=== PATIENT | male | born 1965 | race Caucasian/White ===

== ENCOUNTER 2019-04-07 19:20 | Inpatient (IN) ==
[2019-04-07] MEDS ORDERED: 0.9 % Sodium Chloride 1,000 ML IVC ONE ×2 (20:35→22:56)
[2019-04-07] MEDS ORDERED: Thiamine (B-1) 100 MG TABLET PO STA (20:35)
--- NOTE | 2019-04-07 20:37 | Emergency Department Note ---
Disposition Clinical Impression: Hypokalemia, Weakness, Tremor, Alcohol abuse, Frequent falls Alcohol withdrawal Qualifiers: Complication of substance-induced condition: with unspecified complication Qualified Code(s): F10.239 - Alcohol dependence with withdrawal, unspecified Disposition: Admitted As Inpatient Condition: Fair Time of Disposition: 23:12 General Adult HPI - General Chief complaint: ED Seizure Stated complaint: possible seziure, confusion Time Seen by Provider: 04/07/19 20:19 Source: patient, EMS Mode of arrival: EMS Limitations: no limitations Nursing Notes Reviewed: Yes Vital Signs Reviewed: Yes - History of Present Illness HPI Narrative: 53-year-old male with no known past medical history the takes no daily medications that reports multiple falls over the last couple of days. Patient states he is worried he does not know why he is falling. Patient reports daily use of alcohol 2-3 alcoholic beverages every evening with his last consumption last night. Patient has visible tremors on examination. Patient appears to have suffered multiple scrapes, abrasions, bruises. Patient has some dried blood on his left hand, and appears disheveled. Patient was initially reticent to eating evaluated because he had called someone to come and pick him up. However after I explained my concerns to the patient he was amenable to further evaluation and then later admission. Patient states he does not know how he got to the hospital and initially thought that it was Sunday. According to EMS, patient had fallen on the floor and someone who was in his house called the squad. Pain Scale: 0 - Related Data Allergies Allergy/AdvReac Type Severity Reaction Status Date / Time No Known Allergies Allergy Verified 04/07/19 19:35 Review of Systems: In addition to that documented in the HPI above, the additional ROS was obtained: Constitutional: Denies fevers or chills Eyes: Denies vision changes ENMT: Denies sore throat CV: Denies chest pain Resp: Denies SOB GI: Denies vomiting or diarrhea : Denies painful urination MSK: Denies recent trauma Skin: Denies new rashes Neuro: Reports recent gait instability, frequent falls. Endocrine: Denies unexpected weight loss Heme: Denies bleeding disorders Past Medical History - Past Medical History Attestation: Yes The following information was validated with the patient. Medical history: Reports: other Psychiatric history: Reports: no psych history - Social History Smoking Status: Current every day smoker Smokeless Tobacco Status: No Alcohol use: Reports: heavy Drug use: Reports: none Physical Exam General: A&O x 1 - person, not to time or place, thought he was in [place]. Appears disheveled, mild tremor noted at rest. Head: No hematomas, lacerations, or abrasions. ENT: No conjunctival injection, mild scleral icterus. PERRLA. EOMI. Horizontal nystagmus at lateral deviations. Oropharynx non- erythematous. mucous membranes dry. Neuro: Romi UE/LE sensation intact. CN II-XII intact. Romi UE/LE str 5/5. Ataxia in finger to nose with cerebellar testing. Pulm: Lungs CTAB A/P. No wheezes, rales, ronchi. Cardio: Tachycardic. Chest not tender to palpation. Abd: Soft, non-distended. Normoactive bowel sounds. Non-tender to palpation. No guarding. Non rigid. Extremities: Radial pulses 2+ romi Skin: warm, dry, intact. Multiple abrasions present. Dried blood present on left hand. Psych: Flat affect. Conversational. Not combative. - General General appearance: alert Course Vital Signs Temperature 98.1 F 04/07/19 19:25 Pulse Rate 111 04/07/19 19:25 Respiratory Rate 18 04/07/19 19:25 Blood Pressure 152/105 04/07/19 19:25 O2 Sat by Pulse Oximetry 96 04/07/19 19:25 Temperature 98.2 F 04/10/19 15:00 Pulse Rate 115 04/10/19 15:00 Respiratory Rate 18 04/10/19 15:00 Blood Pressure 101/71 04/10/19 15:00 O2 Sat by Pulse Oximetry 96 04/10/19 07:30 Oxygen Delivery Oxygen Delivery Room Air Medical Decision Making - [facility] Narrative Medical decision making narrative: Patient's head CT was negative for acute intracranial abnormality and the remainder of his imaging did not reveal any acute fractures or other abnormalities. However patient did have signs that he was in alcohol withdrawal given that his alcohol level was undetectable and his reported daily use. CIWA scoring revealed a score of 14 so patient was placed on Ativan prophylaxis. After administration of Ativan patient's heart rate normalized below 100. Patient was found to be hypokalemic at 2.3, so he was given 75 mEq by mouth potassium as well as ordered 40 mEq IV and 2 g of IV magnesium. Additionally herberth foreman was ordered fluid bolus as he appeared to be dry. Patient was admitted to the hospitalist Dr. Maguire who agreed to accept the patient to her service. Patient was given an opportunity to ask questions at bedside and all of their concerns were addressed. Patient verbalized understanding and agreement with plan of care. Pt remained stable while in the department. - Medical Records Medical records reviewed: Yes I reviewed the patient's medical records. - Lab Data Lab results reviewed: Yes I reviewed the patient's lab results. Result diagrams: 04/08/19 01:41 04/10/19 01:18 Lab Results 04/07/19 04/07/19 04/07/19 Range/Units 21:34 21:34 21:34 WBC 7.2 (4.3-11.1) K/mcL RBC 3.91 L (4.19-5.50) M/mcL Hgb 13.3 (12.9-16.9) g/dL Hct 37.2 L (37.5-50.1) % MCV 95.1 (83.0-100.0) fL MCH 34.0 H (28.0-33.3) pg MCHC 35.8 H (31.6-35.5) g/dL RDW 13.9 (11.5-14.5) % Plt Count 101 L (140-400) K/mcL MPV 10.4 (9.4-12.4) fL Immature Gran % 0.6 (0-4) % Seg Neutrophils % 77.4 % Lymphocytes % 9.6 % Monocytes % 12.1 % Eosinophils % 0.0 % Basophils % 0.3 % Neutrophils # 5.6 (1.6-8.9) K/mcL Lymphocytes # 0.7 (0.6-4.6) K/mcL Monocytes # 0.9 (0.0-1.3) K/mcL Eosinophils # 0.0 (0.0-0.6) K/mcL Basophils # 0.0 (0.0-0.2) K/mcL PT 12.5 H (9.4-12.1) Seconds INR 1.1 Sodium 134 L (136-145) mEq/L Potassium 2.3 L* (3.5-5.1) mEq/L Chloride 90 L (98-107) mEq/L Carbon Dioxide 29 (23-29) mEq/L BUN 7 (6-20) mg/dL Creatinine 0.66 L (0.70-1.30) mg/dL Est GFR ( Amer) > 60 (> 60) Est GFR (Non-Af Amer) > 60 (> 60) BUN/Creatinine Ratio 11 (6-26) Glucose 130 H (70-105) mg/dL Calculated Osmolality 278 L (280-300) Calcium 9.1 (8.6-10.3) mg/dL Magnesium 0.7 L (1.6-2.6) mg/dL Total Bilirubin 3.5 H (0.3-1.0) mg/dL Direct Bilirubin 1.0 H (0.0-0.2) mg/dL Indirect Bilirubin 2.5 H (0.0-1.2) mg/dL AST 56 H (13-39) Units/L ALT 25 (7-52) Units/L Alkaline Phosphatase 90 (34-104) Units/L Ammonia (16-53) mcmol/L Serum Total Protein 7.5 (6.4-8.9) g/dL Albumin 4.3 (3.5-5.7) g/dL Globulin 3.2 (2.4-3.5) g/dL Albumin/Globulin Ratio 1.3 (1.1-2.2) TSH 1.721 (0.340-5.600) mcIU/mL Ethyl Alcohol < 10 (Less than 10) mg/dL Hepatitis A IgM Ab (Nonreactive) Hep Bs Antigen (Nonreactive) Hep B Core IgM Ab (Nonreactive) Hepatitis C Ab Screen (Nonreactive) 04/07/19 04/07/19 Range/Units 21:34 21:34 WBC (4.3-11.1) K/mcL RBC (4.19-5.50) M/mcL Hgb (12.9-16.9) g/dL Hct (37.5-50.1) % MCV (83.0-100.0) fL MCH (28.0-33.3) pg MCHC (31.6-35.5) g/dL RDW (11.5-14.5) % Plt Count (140-400) K/mcL MPV (9.4-12.4) fL Immature Gran % (0-4) % Seg Neutrophils % % Lymphocytes % % Monocytes % % Eosinophils % % Basophils % % Neutrophils # (1.6-8.9) K/mcL Lymphocytes # (0.6-4.6) K/mcL Monocytes # (0.0-1.3) K/mcL Eosinophils # (0.0-0.6) K/mcL Basophils # (0.0-0.2) K/mcL PT (9.4-12.1) Seconds INR Sodium (136-145) mEq/L Potassium (3.5-5.1) mEq/L Chloride (98-107) mEq/L Carbon Dioxide (23-29) mEq/L BUN (6-20) mg/dL Creatinine (0.70-1.30) mg/dL Est GFR ( Amer) (> 60) Est GFR (Non-Af Amer) (> 60) BUN/Creatinine Ratio (6-26) Glucose (70-105) mg/dL Calculated Osmolality (280-300) Calcium (8.6-10.3) mg/dL Magnesium (1.6-2.6) mg/dL Total Bilirubin (0.3-1.0) mg/dL Direct Bilirubin (0.0-0.2) mg/dL Indirect Bilirubin (0.0-1.2) mg/dL AST (13-39) Units/L ALT (7-52) Units/L Alkaline Phosphatase (34-104) Units/L Ammonia 50 (16-53) mcmol/L Serum Total Protein (6.4-8.9) g/dL Albumin (3.5-5.7) g/dL Globulin (2.4-3.5) g/dL Albumin/Globulin Ratio (1.1-2.2) TSH (0.340-5.600) mcIU/mL Ethyl Alcohol (Less than 10) mg/dL Hepatitis A IgM Ab Nonreactive (Nonreactive) Hep Bs Antigen Nonreactive (Nonreactive) Hep B Core IgM Ab Nonreactive (Nonreactive) Hepatitis C Ab Screen Nonreactive (Nonreactive) - Radiology Data Radiology results reviewed: Yes I reviewed the patient's radiology results. Head CT 04/07/19 20:33 IMPRESSION: 1. No acute intracranial abnormality. 2. No acute cervical spine fracture. 3. Multilevel cervical spine degenerative disc and joint disease with degenerative grade spondylolisthesis. D/ / 04/07/2019 22:51:06 Bernardo Alvares MD / claus Interpreting Provider: Bernardo Alvares MD Chest X-Ray 04/07/19 20:35 IMPRESSION: No acute abnormality. D/ / 04/07/2019 22:09:04 Bernardo Alvares MD / claus Interpreting Provider: Bernardo Alvares MD Pelvis X-Ray 04/07/19 20:35 IMPRESSION: Normal pelvic alignment with no acute abnormality. D/ / 04/07/2019 22:09:59 Bernardo Alvares MD / claus Interpreting Provider: Bernardo Alvares MD Cervical Spine CT 04/07/19 20:36 IMPRESSION: 1. No acute intracranial abnormality. 2. No acute cervical spine fracture. 3. Multilevel cervical spine degenerative disc and joint disease with degenerative grade spondylolisthesis. D/ / 04/07/2019 22:51:06 Bernardo Alvares MD / claus Interpreting Provider: Bernardo Alvares MD - EKG Data EKG #1 EKG attestation: Yes I reviewed and interpreted this EKG. EKG results narrative: Heart rate 98, rhythm sinus, axis normal. DE 139, QRS 89, QTC 493 and borderline prolonged. No ST segment elevation. Minimal diffuse ST segment depression. Attestation Statement - Attestation Attestation: I have seen this patient with the resident physician, I have personally evaluated this patient. I had reviewed the chart and document dictation by the resident physician and aM in agreement with the information documented by the resident physician. Please see documentation by the resident physician for complete chart including past medical history, family medical history, review of systems, current history and physical and laboratory and imaging studies. I was present for all procedures, provided direct supervision for all procedures, was present for the entirety of all procedures and provided direct guidance during the procedures. Please see documentation by the resident physician for any procedures performed. I have reviewed all interpretations of EKGs, and reviewed all EKGs performed on patient's as well. I have also reviewed reports of imaging as provided by radiology.
[2019-04-07] MEDS ORDERED: *HR* LORazepam 2 MG/ML VIAL IVP PRN (20:38)
[2019-04-07 21:48] LABS: Basophils % 0.3 %; Hematocrit 37.2 % (37.5-50.1); Hemoglobin 13.3 g/dL (12.9-16.9); Immature Granulocytes % 0.6 % (0-4); Lymphocytes # 0.7 K/mcL (0.6-4.6); Lymphocytes % 9.6 %; Mean Corpuscular HGB Conc 35.8 g/dL (31.6-35.5); Mean Corpuscular Volume 95.1 fL (83.0-100.0); Mean Platelet Volume 10.4 fL (9.4-12.4); Monocytes # 0.9 K/mcL (0.0-1.3); Monocytes % 12.1 %; Neutrophils # 5.6 K/mcL (1.6-8.9); Platelet Count 101 K/mcL (140-400); Red Blood Count 3.91 M/mcL (4.19-5.50); Red Cell Distribution Width 13.9 % (11.5-14.5); Segmented Neutrophils % 77.4 %; White Blood Count 7.2 K/mcL (4.3-11.1)
[2019-04-07 21:58] LABS: INR 1.1; Prothrombin Time 12.5 Seconds (9.4-12.1)
[2019-04-07 22:23] LABS: Alanine Aminotransferase 25 Units/L (7-52); Albumin 4.3 g/dL (3.5-5.7); Albumin/Globulin Ratio 1.3 (1.1-2.2); Alkaline Phosphatase 90 Units/L (34-104); Aspartate Amino Transferase 56 Units/L (13-39); BUN/Creatinine Ratio 11 (6-26); Bilirubin,Indirect 2.5 mg/dL (0.0-1.2); Bilirubin,Total 3.5 mg/dL (0.3-1.0); Blood Urea Nitrogen 7 mg/dL (6-20); Calcium 9.1 mg/dL (8.6-10.3); Carbon Dioxide 29 mEq/L (23-29); Chloride 90 mEq/L (98-107); Ethanol < 10 mg/dL (Less than 10); Globulin 3.2 g/dL (2.4-3.5); Glucose 130 mg/dL (70-105); Osmolality,Calculated 278 (280-300); Potassium 2.3 mEq/L (3.5-5.1); Sodium 134 mEq/L (136-145); Thyroid Stimulating Hormone 1.721 mcIU/mL (0.340-5.600); Total Protein 7.5 g/dL (6.4-8.9); eGFR For African Americans > 60 (> 60); eGFR For Non-African Americans > 60 (> 60)
[2019-04-07 22:28] LABS: Hepatitis B Surface Antigen Nonreactive (Nonreactive)
[2019-04-07] MEDS ORDERED: Potassium Chloride 40 MEQ, Lidocaine 1% 2 ML in D5% in Water 500 ML IVPB ONE (22:53)
[2019-04-07] MEDS ORDERED: Potassium Effervescent 25 MEQ TABLET.EFF PO ONE ×2 (22:53→23:13)
[2019-04-07 22:56] LABS: Hepatitis C Virus Antibody Nonreactive (Nonreactive)
[2019-04-07 22:57] LABS: Hepatitis B Core IgM Nonreactive (Nonreactive)
[2019-04-07 22:59] LABS: Hepatitis A Antibody IgM Nonreactive (Nonreactive)
--- NOTE | 2019-04-07 23:23 | Emergency Department Note ---
Disposition Clinical Impression: Hypokalemia, Weakness, Tremor, Alcohol abuse, Frequent falls Disposition: Admitted As Inpatient Condition: Fair Referrals: NONE,PCP [Primary Care Provider] - Forms: ED Satisfaction Letter Time of Disposition: 23:00 General Adult HPI - General Chief complaint: ED Seizure Stated complaint: possible seziure, confusion Time Seen by Provider: 04/07/19 20:19 Source: patient, EMS Mode of arrival: EMS Limitations: no limitations - History of Present Illness Pain Scale: 0 - Related Data Allergies Allergy/AdvReac Type Severity Reaction Status Date / Time No Known Allergies Allergy Verified 04/07/19 19:35 Past Medical History - Past Medical History Medical history: Reports: other Psychiatric history: Reports: no psych history - Social History Smoking Status: Current every day smoker Smokeless Tobacco Status: No Alcohol use: Reports: heavy Drug use: Reports: none Physical Exam - General Limitations: no limitations General appearance: alert Course Vital Signs Temperature 98.1 F 04/07/19 19:25 Pulse Rate 111 04/07/19 19:25 Respiratory Rate 18 04/07/19 19:25 Blood Pressure 152/105 04/07/19 19:25 O2 Sat by Pulse Oximetry 96 04/07/19 19:25 Temperature 98.1 F 04/07/19 19:25 Pulse Rate 111 04/07/19 19:25 Respiratory Rate 18 04/07/19 19:25 Blood Pressure 152/105 04/07/19 19:25 O2 Sat by Pulse Oximetry 96 04/07/19 19:25 Oxygen Delivery Oxygen Delivery Room Air Medical Decision Making - Lab Data Result diagrams: 04/07/19 21:34 04/07/19 21:34 Lab Results 04/07/19 04/07/19 04/07/19 Range/Units 21:34 21:34 21:34 WBC 7.2 (4.3-11.1) K/mcL RBC 3.91 L (4.19-5.50) M/mcL Hgb 13.3 (12.9-16.9) g/dL Hct 37.2 L (37.5-50.1) % MCV 95.1 (83.0-100.0) fL MCH 34.0 H (28.0-33.3) pg MCHC 35.8 H (31.6-35.5) g/dL RDW 13.9 (11.5-14.5) % Plt Count 101 L (140-400) K/mcL MPV 10.4 (9.4-12.4) fL Immature Gran % 0.6 (0-4) % Seg Neutrophils % 77.4 % Lymphocytes % 9.6 % Monocytes % 12.1 % Eosinophils % 0.0 % Basophils % 0.3 % Neutrophils # 5.6 (1.6-8.9) K/mcL Lymphocytes # 0.7 (0.6-4.6) K/mcL Monocytes # 0.9 (0.0-1.3) K/mcL Eosinophils # 0.0 (0.0-0.6) K/mcL Basophils # 0.0 (0.0-0.2) K/mcL PT 12.5 H (9.4-12.1) Seconds INR 1.1 Sodium 134 L (136-145) mEq/L Potassium 2.3 L* (3.5-5.1) mEq/L Chloride 90 L (98-107) mEq/L Carbon Dioxide 29 (23-29) mEq/L BUN 7 (6-20) mg/dL Creatinine 0.66 L (0.70-1.30) mg/dL Est GFR ( Amer) > 60 (> 60) Est GFR (Non-Af Amer) > 60 (> 60) BUN/Creatinine Ratio 11 (6-26) Glucose 130 H (70-105) mg/dL Calculated Osmolality 278 L (280-300) Calcium 9.1 (8.6-10.3) mg/dL Total Bilirubin 3.5 H (0.3-1.0) mg/dL Direct Bilirubin 1.0 H (0.0-0.2) mg/dL Indirect Bilirubin 2.5 H (0.0-1.2) mg/dL AST 56 H (13-39) Units/L ALT 25 (7-52) Units/L Alkaline Phosphatase 90 (34-104) Units/L Ammonia (16-53) mcmol/L Serum Total Protein 7.5 (6.4-8.9) g/dL Albumin 4.3 (3.5-5.7) g/dL Globulin 3.2 (2.4-3.5) g/dL Albumin/Globulin Ratio 1.3 (1.1-2.2) TSH 1.721 (0.340-5.600) mcIU/mL Ethyl Alcohol < 10 (Less than 10) mg/dL Hepatitis A IgM Ab (Nonreactive) Hep Bs Antigen (Nonreactive) Hep B Core IgM Ab (Nonreactive) Hepatitis C Ab Screen (Nonreactive) 04/07/19 04/07/19 Range/Units 21:34 21:34 WBC (4.3-11.1) K/mcL RBC (4.19-5.50) M/mcL Hgb (12.9-16.9) g/dL Hct (37.5-50.1) % MCV (83.0-100.0) fL MCH (28.0-33.3) pg MCHC (31.6-35.5) g/dL RDW (11.5-14.5) % Plt Count (140-400) K/mcL MPV (9.4-12.4) fL Immature Gran % (0-4) % Seg Neutrophils % % Lymphocytes % % Monocytes % % Eosinophils % % Basophils % % Neutrophils # (1.6-8.9) K/mcL Lymphocytes # (0.6-4.6) K/mcL Monocytes # (0.0-1.3) K/mcL Eosinophils # (0.0-0.6) K/mcL Basophils # (0.0-0.2) K/mcL PT (9.4-12.1) Seconds INR Sodium (136-145) mEq/L Potassium (3.5-5.1) mEq/L Chloride (98-107) mEq/L Carbon Dioxide (23-29) mEq/L BUN (6-20) mg/dL Creatinine (0.70-1.30) mg/dL Est GFR ( Amer) (> 60) Est GFR (Non-Af Amer) (> 60) BUN/Creatinine Ratio (6-26) Glucose (70-105) mg/dL Calculated Osmolality (280-300) Calcium (8.6-10.3) mg/dL Total Bilirubin (0.3-1.0) mg/dL Direct Bilirubin (0.0-0.2) mg/dL Indirect Bilirubin (0.0-1.2) mg/dL AST (13-39) Units/L ALT (7-52) Units/L Alkaline Phosphatase (34-104) Units/L Ammonia 50 (16-53) mcmol/L Serum Total Protein (6.4-8.9) g/dL Albumin (3.5-5.7) g/dL Globulin (2.4-3.5) g/dL Albumin/Globulin Ratio (1.1-2.2) TSH (0.340-5.600) mcIU/mL Ethyl Alcohol (Less than 10) mg/dL Hepatitis A IgM Ab Nonreactive (Nonreactive) Hep Bs Antigen Nonreactive (Nonreactive) Hep B Core IgM Ab Nonreactive (Nonreactive) Hepatitis C Ab Screen Nonreactive (Nonreactive) Attestation Statement - Attestation Attestation: I have seen this patient with the resident physician, I have personally evaluated this patient. I had reviewed the chart and document dictation by the resident physician and aM in agreement with the information documented by the resident physician. Please see documentation by the resident physician for complete chart including past medical history, family medical history, review of systems, current history and physical and laboratory and imaging studies. I was present for all procedures, provided direct supervision for all procedures, was present for the entirety of all procedures and provided direct guidance during the procedures. Please see documentation by the resident physician for any procedures performed. I have reviewed all interpretations of EKGs, and reviewed all EKGs performed on patient's as well. I have also reviewed reports of imaging as provided by radiology. Patient presented to the emergency department with feeling weak and shaky. He states that he has also been falling and reports that he fell 3 times today. He states that he is not exactly clear as to what is happening during these episodes he does not believe he has passed out or had a seizure he thinks he might of hit his head. He definitely states that he has some bruises and scrapes that he was unaware of. He is a daily drinker of alcohol. Denies any significant chest pain shortness of breath fever chills cough sputum production abdominal pain nausea or vomiting. On physical examination he is very shaky in appearance, with some tremors noted, but he is alert and oriented without confabulation or confusion. There is a linear abrasion to his for head, no laceration, no hematoma. No significant tenderness of his cervical spine. Oropharynx is normal although it does appear that he has evidence of tongue biting on the left side of his tongue, without evidence of significant laceration or active bleeding. Lungs are clear heart is regular abdomen is soft and nontender. No obvious focal neurologic abnormality. No asterixis. Tremors are noted. Patient was given IV fluids. Evaluation for potential syncope or seizure, and potential alcohol withdrawal was initiated. Laboratory studies were all within acceptable limits apart from hyperbilirubinemia 3.5, consistent with his daily alcohol use, as well as hypokalemia 2.3. This was supplemented with IV and by mouth potassium. Head CT showed no acute findings. Secondary to patient with active evidence of weakness and tremors, falls with potential evidence of seizure with tongue biting, with profound hypokalemia. He will be admitted to the hospital for further evaluation and management. he did not develop any evidence of seizures here in the emergency department he was placed on the ciwa protocol. ,
[2019-04-07 23:41] LABS: Magnesium 0.7 mg/dL (1.6-2.6)
[2019-04-08] MEDS ORDERED: *HR* LORazepam 2 MG/ML VIAL IVP STA (00:22)
--- NOTE | 2019-04-08 00:30 | Internal Med History&Physical ---
Date of Encounter: 04/08/19 Time of Encounter: 00:30 Internal Medicine - H&P: HPI Chief complaint: Fall History of present illness: Mr. Kevin is a 53 year old male with no significant past medical history who presented to the ER with a complaint of multiple falls. The patient has history of alcohol abuse where he drink 3 alcoholic beverages every night. The patient was evaluated by the ER staff and his laboratory data was suggestive of severe hyperkalemia was reported potassium of 2.3. His potassium was replaced orally however is in the ER the patient has an episode of severe vomiting where he vomited potassium supplementation. The patient reportedly try to get up in the ER without asking for Asst. and handout falling to the floor and as a result his IV was dislodged. There was a concern about possible unwitnessed seizure due to alcohol withdrawal. The patient was taken to the CT scan to obtain a CAT scan of his head which later resulted and was negative. IV potassium supplementation was ordered and patient was placed on CIWA. At bedside the patient is alert and oriented. There was a linear abrasion that was noted on his for hand , and that there was no evidence of obvious trauma. Vision was admitted for further evaluation and management of alcohol withdrawal and hypo-kalemia Past Med Surg Social Fam HX - Past Medical History Medical history: other Additional medical history: panic attacks Psychiatric history: no psych history - Social History Smoking Status: Current every day smoker Smokeless Tobacco Status: No Alcohol use: heavy Drug use: none Internal Medicine - H&P: Meds Allergy/AdvReac Type Severity Reaction Status Date / Time No Known Allergies Allergy Verified 04/07/19 19:35 All Systems PM: A 10-system review of systems was performed and is negative for pertinent findings except as documented above in the HPI. - Constitutional Vitals: Temp Pulse Resp BP Pulse Ox 98.1 F 111 18 152/105 96 04/07/19 19:25 04/07/19 19:25 04/07/19 19:25 04/07/19 19:25 04/07/19 19:25 General appearance: Present: A&O X 3 Exam: ` - Head Head exam: Present: atraumatic, normocephalic Additional comments: Any abrasion was noted on the forehead - Neck Neck exam general surgery: Present: supple, trachea midline. Absent: lymphadenopathy - Respiratory Respiratory exam: Present: CTAB. Absent: accessory muscle use, rales, rhonchi, wheezes - Cardiovascular Cardiovascular exam: Present: RRR, +S1, +S2. Absent: diastolic murmur, gallop, rubs, systolic murmur - GI/Abdominal GI/Abdominal exam: Present: normal bowel sounds, soft, no peritoneal signs. Absent: distended, tenderness - Extremities Exam Extremities exam: Present: warm, radial pulses palpable and symmetrical. Absent: calf tenderness, cyanotic, pedal edema Internal Med - H&P Results - Labs CBC & Chem 7: 04/08/19 01:41 04/10/19 01:18 Labs: Short CBC 04/07/19 Range/Units 21:34 WBC 7.2 (4.3-11.1) K/mcL Hgb 13.3 (12.9-16.9) g/dL Hct 37.2 L (37.5-50.1) % Plt Count 101 L (140-400) K/mcL Neutrophils # 5.6 (1.6-8.9) K/mcL BMP 04/07/19 21:34 Sodium 134 L Potassium 2.3 L* Chloride 90 L Carbon Dioxide 29 BUN 7 Creatinine 0.66 L Glucose 130 H Calcium 9.1 Liver Function 04/07/19 Range/Units 21:34 Total Bilirubin 3.5 H (0.3-1.0) mg/dL Direct Bilirubin 1.0 H (0.0-0.2) mg/dL AST 56 H (13-39) Units/L ALT 25 (7-52) Units/L Alkaline Phosphatase 90 (34-104) Units/L Albumin 4.3 (3.5-5.7) g/dL - Impressions ITS Impressions Head CT 04/07/19 20:33 IMPRESSION: 1. No acute intracranial abnormality. 2. No acute cervical spine fracture. 3. Multilevel cervical spine degenerative disc and joint disease with degenerative grade spondylolisthesis. D/ / 04/07/2019 22:51:06 Bernardo Alvares MD / lgray Interpreting Provider: Bernardo Alvares MD Chest X-Ray 04/07/19 20:35 IMPRESSION: No acute abnormality. D/ / 04/07/2019 22:09:04 Bernardo Alvares MD / lgray Interpreting Provider: Bernardo Alvares MD Pelvis X-Ray 04/07/19 20:35 IMPRESSION: Normal pelvic alignment with no acute abnormality. D/ / 04/07/2019 22:09:59 Bernardo Alvares MD / claus Interpreting Provider: Bernardo Alvares MD Cervical Spine CT 04/07/19 20:36 IMPRESSION: 1. No acute intracranial abnormality. 2. No acute cervical spine fracture. 3. Multilevel cervical spine degenerative disc and joint disease with degenerative grade spondylolisthesis. D/ / 04/07/2019 22:51:06 Bernardo Alvares MD / claus Interpreting Provider: Bernardo Alvares MD - Assessment and Plan (1) Hypokalemia Current Visit: Yes Status: Acute Assessment and plan: His potassium was replaced orally in the ER however the patient has an episode of severe vomiting where he vomited potassium supplementation. The patient reportedly try to get up in the ER without asking for Asst. and handout falling to the floor and as a result his IV was dislodged. We will start IV potassium supplementation and recheck potassium level (2) Alcohol withdrawal Current Visit: Yes Status: Acute Assessment and plan: We will start CIWA protocol with lorazepam Qualifiers: Complication of substance-induced condition: with unspecified complication Qualified Code(s): F10.239 - Alcohol dependence with withdrawal, unspecified (3) Frequent falls Current Visit: Yes Status: Acute Assessment and plan: Most likely secondary to being intoxicated with alcohol on daily basis, CT scan of the head was was no significant abnormalities (4) Alcohol abuse Current Visit: Yes Status: Chronic - Time Spent With Patient Total time spent is greater than 50% in coordination of care (as documented) at patient's floor/unit and/or counseling patient:
[2019-04-08] MEDS ORDERED: Ondansetron 4 MG/2 ML VIAL IVP PRN (00:43)
[2019-04-08] MEDS ORDERED: Naloxone 0.4 MG/ML INJ IVP PRN (00:43)
[2019-04-08 02:10] LABS: Immature Platelets 9.8 % (1.1-6.1)
[2019-04-08 02:13] LABS: Basophils % 0.4 %; Hematocrit 36.9 % (37.5-50.1); Hemoglobin 13.2 g/dL (12.9-16.9); Mean Corpuscular HGB Conc 35.8 g/dL (31.6-35.5); Mean Corpuscular Hemoglobin 34.3 pg (28.0-33.3); Mean Corpuscular Volume 95.8 fL (83.0-100.0); Mean Platelet Volume 10.9 fL (9.4-12.4); Monocytes % 12.6 %; Neutrophils # 5.8 K/mcL (1.6-8.9); Red Blood Count 3.85 M/mcL (4.19-5.50); Red Cell Distribution Width 14.1 % (11.5-14.5)
[2019-04-08 02:14] LABS: Platelet Count 98 K/mcL (140-400)
[2019-04-08 02:16] LABS: INR 1.1; Prothrombin Time 12.5 Seconds (9.4-12.1)
[2019-04-08] MEDS: Vitamin B Complex/Vit C/Vit E 1 EACH TABLET PO SCH ×2 (02:16→09:47)
[2019-04-08] MEDS: Folic Acid 1 MG TABLET PO SCH ×2 (02:16→09:47)
[2019-04-08 02:34] LABS: Alanine Aminotransferase 23 Units/L (7-52); Albumin 4.3 g/dL (3.5-5.7); Albumin/Globulin Ratio 1.5 (1.1-2.2); Alkaline Phosphatase 87 Units/L (34-104); Aspartate Amino Transferase 62 Units/L (13-39); BUN/Creatinine Ratio 10 (6-26); Bilirubin,Total 3.3 mg/dL (0.3-1.0); Blood Urea Nitrogen 8 mg/dL (6-20); Calcium 9.3 mg/dL (8.6-10.3); Carbon Dioxide 30 mEq/L (23-29); Chloride 91 mEq/L (98-107); Chol/HDL Ratio 1.8 (0-4.9); Cholesterol 195 mg/dL (< 200); Globulin 2.9 g/dL (2.4-3.5); Glucose 126 mg/dL (70-105); HDL Cholesterol 108 mg/dL (40-59); LDL Cholesterol,Calculated 74 mg/dL (0-99); Magnesium 0.7 mg/dL (1.6-2.6); Osmolality,Calculated 280 (280-300); Phosphorous < 1.0 mg/dL (2.7-4.5); Potassium 2.5 mEq/L (3.5-5.1); Sodium 135 mEq/L (136-145); Total Protein 7.2 g/dL (6.4-8.9); Triglycerides 65 mg/dL (< 150); eGFR For African Americans > 60 (> 60); eGFR For Non-African Americans > 60 (> 60)
[2019-04-08] MEDS ORDERED: Potassium Phosphate 44 MEQ in 0.9 % Sodium Chloride 250 ML IVPB ONE ×2 (02:40→16:12)
[2019-04-08] MEDS: *HR* LORazepam 2 MG/ML VIAL IVP PRN ×5 (03:18→21:31)
[2019-04-08 04:53] LABS: BUN/Creatinine Ratio 12 (6-26); Blood Urea Nitrogen 8 mg/dL (6-20); Calcium 8.9 mg/dL (8.6-10.3); Carbon Dioxide 30 mEq/L (23-29); Chloride 95 mEq/L (98-107); Glucose 103 mg/dL (70-105); Osmolality,Calculated 281 (280-300); Potassium 2.6 mEq/L (3.5-5.1); Sodium 136 mEq/L (136-145); eGFR For African Americans > 60 (> 60); eGFR For Non-African Americans > 60 (> 60)
[2019-04-08] MEDS ORDERED: Gadolinium Contrast Agent (WT Based) IV PRN ×2 (10:25→11:03)
--- NOTE | 2019-04-08 10:51 | Neurology - Consult Note ---
<Shashank France J - Last Filed: 04/08/19 17:14> Date of Encounter: 04/08/19 Time of Encounter: 10:30 Assessment and Plan (1) Syncope Current Visit: Yes Status: Acute Normal state of health prior to yesterday H/O ETOH abuse Abrupt onset of multiple falls and syncope; presentation also questionable for seizures Unwitnessed fall in the ED yesterday with fecal incontinence CT and repeat CT head negative for an acute process, CT C-spine with DDD C5-7 TSH 1.[address] elevation but with minimal diffuse ST segment depression Multiple metabolic derangements with hypokalemia, hypomagnesemia, and hypophosphatemia; most likely ETOH abuse etiology; certainly increases risk for seizure ddx: seizures, consider neurovascular etiology vs acute ischemic event vs arrhythmia Neuro exam illicit findings of BLE weakness but otherwise no other focal deficits. He appears to have an element of deconditioning as well. PLAN MRI to evaluate for acute ischemia and/or cause of suspected seizures Syncopal w/u including orthovital signs, TTE, MRA head/neck to r/o stenosis of cervical and intracranial vasculature EEG to evaluate for seizure activity No need for anti-epileptic drugs at this time Implement seizure precautions IM team managing electrolyte replacement Agree with CIWA protocol Discussed lifestyle modification and strongly encourage ETOH cessation Recommend PT/OT and falls precautions (2) Weakness Current Visit: Yes Status: Acute (3) Frequent falls Current Visit: Yes Status: Acute History of Present Illness Chief complaint: Weakness, falls and syncope HPI: Mr. Kevin is a 53 year old male with no known past medical history with the exception of daily alcohol abuse reporting drinking approximately 2-3 alcoholic beverages daily. He presents to [facility] with reports of a sudden onset of falls and syncope. The patient reports that prior to yesterday he was in his normal state of health. He notes that yesterday morning upon awakening he began to feel very dizzy and was having difficulty ambulating. He states that while in the kitchen he fell over and hit his head on the counter but denies any loss of consciousness at this time. He notes that he attempted to walk outside on his deck thereafter and had another falls event this time with loss of consciousness. He then walked back in the house and noticed he was having difficulty with his gait reporting that he was bouncing off either side of his hallway. He states that on the morning of these events he did not have any alcohol but did admit to drinking 2-3 beverages the night before. While in the emergency department he had an unwitnessed falls event and this time experience fecal incontinence. He denies any recent GI illnesses, fevers, chills, trauma, seizures or seizure history. Further, he denies any visual disturbances, paresthesias, unilateral weakness, dysphagia, dysarthria, facial asymmetry, headache, neck pain/stiffness, fevers, chest pain, shortness of breath. He does note that he feels weak all over and that the weakness is more pronounced in his lower extremities. While he can recall some of the events surrounding admission he does note that some of the events are difficult to recall and he is unable to remember who found him at home or how he ended up at the hospital. He has not had any return of syncope since admission. Initial and repeat CT imaging of the head are both unremarkable for an acute intracranial process. Also, the initial and repeat CT imaging of the C-spine are also unremarkable. Hip and pelvis x-rays are negative for acute fracture. He is afebrile, vital signs are reviewed and he is hemodynamically stable. Review of the chemistry panel reveals multiple metabolic derangements including but not limited to mild hyponatremia, hypokalemia with serum potassium of 2.3 on admission, hypomagnesemia with a serum mag of 0.7, hypophosphatemia with a phosphorus of 1.9. Neurology has been consulted with concerns for CVA and/or seizures as well as to assist in evaluation of possible syncope. Past Med Surg Social Fam HX - Past Medical History Medical history: other Additional medical history: panic attacks Psychiatric history: no psych history - Social History Smoking Status: Current every day smoker Smokeless Tobacco Status: No Alcohol use: heavy Drug use: none - Additional Family History Additional family history: Reviewed with patient and found to be noncontributory Medications and Allergies Allergy/AdvReac Type Severity Reaction Status Date / Time No Known Allergies Allergy Verified 04/07/19 19:35 All Systems: The remainder of the systems were reviewed and are negative Review of Systems: REVIEW OF SYSTEMS GENERAL: Negative for any fevers, chills POSITIVE-malaise and fatigue NEUROLOGIC: Negative for any blurry vision, blind spots, double vision, facial asymmetry, dysphagia, dysarthria, hemiparesis, hemisensory deficits, paralysis, tingling, numbness, unilateral weakness or numbness/tingling POSITIVE-multiple falls, dizziness, ataxia, suspicion for seizures with syncope, bilateral lower extremity weakness, bilateral hand tremors PSYCH: Positive-agitation negative-SI/HI, auditory or visual hallucinations HEENT: Negative for any head trauma, neck trauma, neck stiffness, photophobia, phonophobia, headaches or tinnitus CARDIAC: Negative for any chest pain, dyspnea, peripheral edema or palpitations. PULMONARY: Negative for any shortness of breath GASTROINTESTINAL: Negative for any abdominal pain POSITIVE-reporting an episode of nausea and vomiting yesterday in the ED as well as fecal incontinence with loss of consciousness GENITOURINARY: Negative for any dysuria, incontinence. ENDOCRINE: Thyroid trouble, heat/cold intolerance, excessive sweating MUSCULOSKELETAL: POSITIVE-multiple falls, loss of strength in bilateral lower extremities and decreased activity tolerance Physical Examination - Vital Signs Vital Signs: Initial Vital Signs Temp Pulse Resp BP Pulse Ox 98.1 F 111 18 152/105 96 04/07/19 19:25 04/07/19 19:25 04/07/19 19:25 04/07/19 19:25 04/07/19 19:25 - Exam Exam: Examination: General Examination: *CONSTITUTIONAL: Alert and oriented x3, somewhat drowsy, no acute distress *GENERAL APPEARANCE OF PATIENT appears older than stated age and generally unwell *EYES: pupils equal, round, reactive to light and accommodation, conjunctiva clear without masses or ulcerations, fundi normal. *CARDIOVASCULAR: RRR, no peripheral edema, distal temperature normal, dorsalis pedis pulses normal. Refer to vital signs * MUSCULOSKELETAL: *GAIT AND STATION: Deferred due to high risk for falls *ASSESSMENT OF MUSCLE STRENGTH IN THE UPPER AND LOWER EXTREMITIES bilateral deltoid, bicep, tricep, data collection technician strength 4/5, bilateral hip flexors3/5 , bilateral anterior tibialis 4/5, dorsoflexion of the foot 3/5 b/l *MUSCLE TONE IN THE UPPER AND LOWER EXTREMITIES mild bilateral hand tremors worse with action and intense Neurological: *ORIENTATION to person, situation, time and place *LANGUAGE AND FUNCTION no significant aphasia or dysarthia was noted. *ATTENTION AND CONCENTRATION are normal *LANGUAGE FUNCTION no significant aphasia or dysarthia was noted. *FUND OF KNOWLEDGE aware of current events, past history, vocabulary; able to provide background history and details of yesterday's events prompting admission *MENTAL attention span and concentration normal. *CN II optic fundi were normal, no papilledema noted. *CN III,IV, PERRLA extraocular eye movements were full, no nystagmus and no ptosis noted. *CN V shows normal sensation and jaw opens symmetrically. *CN VII shows normal facial movement symmetrically, upper and lower bilaterally. *CN VIII shows no significant hearing loss on exam *CN IX-X palate elevated symmetrically *CN XI normal strength in the sternocleidomastoid muscles, symmetrical sh oulder shrugging. *CN XII tongue protruded in the midline, with normal strength and movement. *SENSORY EXAMINATION light touch intact *REFLEXES: deep tendon reflexes were normal and symmetrical , grade 2/4 diffusely, no pathological reflexes were noted. *CEREBELLAR TESTING normal finger to nose, heel/knee/salinas *PAIN LEVEL 0/10 Results - Laboratory Findings CBC and BMP: 04/08/19 01:41 04/08/19 12:54 Abnormal lab findings: Abnormal lab results RBC 3.85 M/mcL (4.19-5.50) L 04/08/19 01:41 Hct 36.9 % (37.5-50.1) L 04/08/19 01:41 MCH 34.3 pg (28.0-33.3) H 04/08/19 01:41 MCHC 35.8 g/dL (31.6-35.5) H 04/08/19 01:41 Plt Count 98 K/mcL (140-400) L 04/08/19 01:41 Immature Plt Fraction 9.8 % (1.1-6.1) H 04/08/19 01:41 PT 12.5 Seconds (9.4-12.1) H 04/08/19 01:41 Sodium 135 mEq/L (136-145) L 04/08/19 01:41 Potassium 2.6 mEq/L (3.5-5.1) L 04/08/19 04:13 Chloride 95 mEq/L (98-107) L 04/08/19 04:13 Carbon Dioxide 30 mEq/L (23-29) H 04/08/19 04:13 0.69 mg/dL (0.70-1.30) L 04/08/19 04:13 Glucose 126 mg/dL (70-105) H 04/08/19 01:41 POC Glucose 133 mg/dL (70-99) H 04/08/19 00:38 278 (280-300) L 04/07/19 21:34 Phosphorus < 1.0 mg/dL (2.7-4.5) L* 04/08/19 01:41 Magnesium 0.7 mg/dL (1.6-2.6) L 04/08/19 01:41 3.3 mg/dL (0.3-1.0) H 04/08/19 01:41 1.0 mg/dL (0.0-0.2) H 04/07/19 21:34 2.5 mg/dL (0.0-1.2) H 04/07/19 21:34 AST 62 Units/L (13-39) H 04/08/19 01:41 108 mg/dL (40-59) H 04/08/19 01:41 - Diagnostic Findings Additional findings: CT/CT cervical spine wo con IMPRESSION: No acute abnormality of the cervical spine. CT/CT head/brain wo con IMPRESSION: No acute intracranial abnormality. Consult Discharge Plan - Plan Referrals: NONE,PCP [Primary Care Provider] - <Valentin Fam - Last Filed: 04/08/19 18:16> Date of Encounter: 04/08/19 Assessment and Plan (1) Weakness Current Visit: Yes Status: Acute (2) Frequent falls Current Visit: Yes Status: Acute (3) Syncope Current Visit: Yes Status: Acute I have personally performed a [id number] assessment of the patient and have reviewed the PA/PULMONOLOGY TECHNICIAN note. My impressions are as follows: Agree with the assessment of the [employer] as stated above. And this juncture I am not finding a specific acute neurologic etiology to explain his multiple falls. MRI scan of the brain was negative for acute infarct or cerebellar atrophy. EEG was negative for evidence of seizure activity. He does have distal weakness which is significant therefore alcoholic polyneuropathy could indeed be contributing here. Certainly recommend ruling out an considering cardiogenic factors, orth ostasis and other etiologies relative to his multiple metabolic derangements. Muscle concerned that he is not not eaten in 4 days and has no appetite. I agree with the recommendation of PT and OT. I would also recommend that he consider using ankle-foot orthotics. We will follow peripherally. Qualifiers: Qualified Code(s): R55 - Syncope and collapse History of Present Illness HPI: Chart was reviewed, patient was seen and examined independently. Case was discussed with the [employer]. I agree with his assessment of the history of present illness as documented above. In addition I did interpret the EEG which was negative for seizure activity. MRI scan was negative for any evidence of acute infarct, negative for cerebellar atrophy. A few scattered white matter hyperintensities were identified. CP K level was elevated at 975. All Systems: The remainder of the systems were reviewed and are negative Review of Systems: Balance of the systems review is negative. Physical Examination - Vital Signs Vital Signs: Initial Vital Signs Temp Pulse Resp BP Pulse Ox 98.1 F 111 18 152/105 96 04/07/19 19:25 04/07/19 19:25 04/07/19 19:25 04/07/19 19:25 04/07/19 19:25 - Exam Exam: I have personally performed a [id number] assessment of the patient and have reviewed the PA/PULMONOLOGY TECHNICIAN note. My impressions are as follows: Patient was seen and e xamined independently. Case was discussed with [employer]. Proprioception was intact. No sensory gradient present. Otherwise, I agree with his documentation of the neurologic exam as outlined above. Results - Laboratory Findings CBC and BMP: 04/08/19 01:41 04/08/19 12:54 Abnormal lab findings: Abnormal lab results RBC 3.85 M/mcL (4.19-5.50) L 04/08/19 01:41 Hct 36.9 % (37.5-50.1) L 04/08/19 01:41 MCH 34.3 pg (28.0-33.3) H 04/08/19 01:41 MCHC 35.8 g/dL (31.6-35.5) H 04/08/19 01:41 Plt Count 98 K/mcL (140-400) L 04/08/19 01:41 Immature Plt Fraction 9.8 % (1.1-6.1) H 04/08/19 01:41 PT 12.5 Seconds (9.4-12.1) H 04/08/19 01:41 Sodium 135 mEq/L (136-145) L 04/08/19 01:41 Potassium 2.7 mEq/L (3.5-5.1) L 04/08/19 12:54 Chloride 96 mEq/L (98-107) L 04/08/19 12:54 Carbon Dioxide 30 mEq/L (23-29) H 04/08/19 12:54 0.58 mg/dL (0.70-1.30) L 04/08/19 12:54 Glucose 126 mg/dL (70-105) H 04/08/19 01:41 POC Glucose 133 mg/dL (70-99) H 04/08/19 00:38 278 (280-300) L 04/07/19 21:34 Phosphorus 1.9 mg/dL (2.7-4.5) L 04/08/19 12:54 Magnesium 0.7 mg/dL (1.6-2.6) L 04/08/19 01:41 3.3 mg/dL (0.3-1.0) H 04/08/19 01:41 1.0 mg/dL (0.0-0.2) H 04/07/19 21:34 2.5 mg/dL (0.0-1.2) H 04/07/19 21:34 AST 62 Units/L (13-39) H 04/08/19 01:41 975 Units/L (30-223) H 04/08/19 14:32 108 mg/dL (40-59) H 04/08/19 01:41
[2019-04-08 13:36] LABS: BUN/Creatinine Ratio 12 (6-26); Blood Urea Nitrogen 7 mg/dL (6-20); Calcium 8.8 mg/dL (8.6-10.3); Carbon Dioxide 30 mEq/L (23-29); Chloride 96 mEq/L (98-107); Glucose 100 mg/dL (70-105); Magnesium 1.8 mg/dL (1.6-2.6); Osmolality,Calculated 280 (280-300); Phosphorous 1.9 mg/dL (2.7-4.5); Potassium 2.7 mEq/L (3.5-5.1); Sodium 136 mEq/L (136-145); eGFR For African Americans > 60 (> 60); eGFR For Non-African Americans > 60 (> 60)
--- NOTE | 2019-04-08 16:59 | EEG/EMG/Oth Biometrics Report ---
EEG Procedure Report Date of procedure: 04/08/19 EEG Procedure: Routine EEG Procedure Note: This is a report of a 21 channel bipolar and referential montage EEG. A posterior dominant rhythm of primarily beta frequencies identified symmetrically in the posterior head region. This rhythm is of low voltage and is poorly sustained. Hyperventilation is not performed in recording. Periods of drowsiness are identified as reference by dropout of posterior dominant rhythm and sleep spindles are identified. However no delta frequencies are K complexes are present. Photic stimulations performed and does not produce a driving response. The EKG rhythm strip reveals normal sinus rhythm at 72 bpm. Impressions: This is a normal EEG study. There is no evidence of epileptiform activity identified during the study. Comment: A normal EEG does not preclude a diagnosis of seizure or epilepsy. If the clinical suspicion for seizure activity is high, serial EEGs or perhaps a prolonged recording may increase the yield. Please correlate clinically.
[2019-04-08] MEDS: Aspirin 81 MG TAB.CHEW PO SCH (17:26)
--- NOTE | 2019-04-08 17:44 | Internal Med Progress Note ---
Hospitalist Progress Note - Encounter Date of Encounter: 04/08/19 Time of Encounter: 17:42 - Subjective Interval History: Patient has a sitter because he had fall overnight. Patient has a sitter because unwitnessed fall last night. His received several milligrams of Ativan for alcohol withdrawal - Exam Vitals: Temp Pulse Resp BP Pulse Ox 98.1 F 77 14 118/96 95 04/08/19 12:00 04/08/19 12:00 04/08/19 12:00 04/08/19 12:00 04/08/19 12:00 Exam: General: Ill-appearing and diaphoretic HEENT: No erythema of posterior pharynx. No exudates. Lymphatics: No mandibular or cervical lymphadenopathy Cardiovascular: RRR. No murmurs. No chest wall tenderness. Lungs: Clear to auscelltation bilaterally. Regular chest rise. Abdomen: Non-tender. No rebound or gaurding. Nl bowel sounds. Extremities: No edema. 2+ pulses radial and pedal pulses Skin: No rahses, abrasions, or contusions. Nl cap refill. Psych: Poor attention. 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 3/5 strength in hip flexors BL, 5/5 in all other extremities. Sensation to light touch and pinprick intact. - Assessment and Plan (1) Syncope Current Visit: Yes Status: Acute Assessment and Plan: Patient with history of alcohol abuse presents with bilateral lower extremity weakness and syncope in the setting of severe electrolyte disturbances and active alcohol withdrawal on presentation. -Resume that all of patient's current complaints are due to alcohol abuse and the resulting electrolyte disturbances History of daily drinking and actively withdrawing on presentation so history is somewhat unreliable Has bilateral lower extremity weakness which does not fit an ischemic territory and is in the setting of severe hypokalemia which is likely the etiology of this Bilateral lower extremity weakness is likely what led to his falls and unclear if he actually had true LOC events or not -Neurology consult to because there was a suspicion for a central cause of patient's presentation on admission Recommending ischemic workup as well as evaluation for seizures -No syncopal events since admission PLAN: - Aggressive repletion of electrolytes and trend improvement in lower extremity weakness with this - CIWA - Workup per nephrology: MRI brain/neck, TTE, EEG - PT/OT eval (2) Weakness of both lower extremities Current Visit: Yes Status: Acute Assessment and Plan: See above. Likely secondary to severe electrolyte disturbances and deconditioning from chronic alcohol abuse. - Aggressive potassium repletion - We will also check B12 level (3) Alcohol abuse Current Visit: Yes Status: Acute Assessment and Plan: Endorses drinking 2-3 drinks per day but suspect it is much higher than this. - [facility] for resources (4) Alcohol withdrawal Current Visit: Yes Status: Acute (5) Hypokalemia Current Visit: Yes Status: Acute Assessment and Plan: In setting of alcohol abuse. - Alcohol cessation - Aggressive replacement - Time Spent with Patient Total time spent is greater than 50% in coordination of care (as documented) at patient's floor/unit and/or counseling patient: Greater than 35 minutes Plan of Care Discussed with: patient Internal Medicine: Result - Labs CBC & Chem 7: 04/08/19 01:41 04/08/19 12:54 Labs: Short CBC 04/07/19 04/08/19 Range/Units 21:34 01:41 WBC 7.2 8.0 (4.3-11.1) K/mcL Hgb 13.3 13.2 (12.9-16.9) g/dL Hct 37.2 L 36.9 L (37.5-50.1) % Plt Count 101 L 98 L (140-400) K/mcL Neutrophils # 5.6 5.8 (1.6-8.9) K/mcL BMP 04/07/19 04/08/19 04/08/19 21:34 01:41 04:13 Sodium 134 L 135 L 136 Potassium 2.3 L* 2.5 L* 2.6 L Chloride 90 L 91 L 95 L Carbon Dioxide 29 30 H 30 H BUN 7 8 8 Creatinine 0.66 L 0.78 0.69 L Glucose 130 H 126 H 103 Calcium 9.1 9.3 8.9 04/08/19 12:54 Sodium 136 Potassium 2.7 L Chloride 96 L Carbon Dioxide 30 H BUN 7 Creatinine 0.58 L Glucose 100 Calcium 8.8 Liver Function 04/07/19 04/08/19 Range/Units 21:34 01:41 Total Bilirubin 3.5 H 3.3 H (0.3-1.0) mg/dL Direct Bilirubin 1.0 H (0.0-0.2) mg/dL AST 56 H 62 H (13-39) Units/L ALT 25 23 (7-52) Units/L Alkaline Phosphatase 90 87 (34-104) Units/L Albumin 4.3 4.3 (3.5-5.7) g/dL - ABG Interpretation ABG results: PT/INR, D-dimer PT 12.5 Seconds (9.4-12.1) H 04/08/19 01:41 - Impressions Impressions Head CT 04/07/19 20:33 IMPRESSION: 1. No acute intracranial abnormality. 2. No acute cervical spine fracture. 3. Multilevel cervical spine degenerative disc and joint disease with degenerative grade spondylolisthesis. D/ / 04/07/2019 22:51:06 Bernardo Alvares MD / claus Interpreting Provider: Bernardo Alvares MD Chest X-Ray 04/07/19 20:35 IMPRESSION: No acute abnormality. D/ / 04/07/2019 22:09:04 Bernardo Alvares MD / claus Interpreting Provider: Bernardo Alvares MD Pelvis X-Ray 04/07/19 20:35 IMPRESSION: Normal pelvic alignment with no acute abnormality. D/ / 04/07/2019 22:09:59 Bernardo Alvares MD / claus Interpreting Provider: Bernardo Alvares MD Cervical Spine CT 04/07/19 20:36 IMPRESSION: 1. No acute intracranial abnormality. 2. No acute cervical spine fracture. 3. Multilevel cervical spine degenerative disc and joint disease with degenerative grade spondylolisthesis. D/ / 04/07/2019 22:51:06 Bernardo Alvares MD / claus Interpreting Provider: Bernardo Alvares MD Cervical Spine CT 04/08/19 00:17 IMPRESSION: No acute abnormality of the cervical spine. D/ / Nick Arechiga MD / Nick Arechiga MD Interpreting Provider: Nick Arechiga MD Head CT 04/08/19 00:17 IMPRESSION: No acute intracranial abnormality. D/ / Nick Arechiga MD / Nick Arechiga MD Interpreting Provider: Nick Arechiga MD Hip/Pelvis X-Ray 04/08/19 00:34 IMPRESSION: Negative for fracture D/ / Nick Arechiga MD / Nick Arechiga MD Interpreting Provider: Nick Arechiga MD Head MRA 04/08/19 10:24 IMPRESSION: Motion degraded exams. No acute infarct identified. No flow limiting stenosis or branch occlusion visualized within the head or neck. D/ / Hugh Way MD / Hugh Way MD Interpreting Provider: Hugh Way MD Neck MRA 04/08/19 10:25 IMPRESSION: Motion degraded exams. No acute infarct identified. No flow limiting stenosis or branch occlusion visualized within the head or neck. D/ / Hugh Way MD / Hugh Way MD Interpreting Provider: Hugh Way MD Brain MRI 04/08/19 11:03 IMPRESSION: Motion degraded exams. No acute infarct identified. No flow limiting stenosis or branch occlusion visualized within the head or neck. D/ / Hugh Way MD / Hugh Way MD Interpreting Provider: Huhg Way MD Consult Discharge Plan - Plan Referrals: NONE,PCP [Primary Care Provider] - (4) Alcohol withdrawal Qualifiers: Complication of substance-induced condition: with unspecified complication Qualified Code(s): F10.239 - Alcohol dependence with withdrawal, unspecified
[2019-04-08 19:49] LABS: Bilirubin,Urine Small (Negative); Blood,Urine Negative (Negative); Clarity,Urine Clear (Clear); Color,Urine Dark Yellow (Yellow); Glucose,Urine (UA) Normal (Normal); Ketones,Urine Trace mg/dL (Negative); Leukocyte Esterase,Urine Negative (Negative); Nitrite,Urine Positive (Negative); PH,Urine 6.5 pH Units (5.0-8.0); Protein,Urine Trace mg/dL (Neg-Trace); Specific Gravity,Urine 1.019 (1.010-1.025)
[2019-04-08 19:55] LABS: Bacteria,Urine None Seen per hpf (None-Few); Hyaline Casts,Urine None Seen per lpf (None-Few); RBC,Urine 0-3 per hpf (0-3); Squamous Epithelial Cell,Urine Few per lpf (None-Few); WBC,Urine 0-3 per hpf (0-3)
[2019-04-09 01:40] LABS: BUN/Creatinine Ratio 14 (6-26); Blood Urea Nitrogen 7 mg/dL (6-20); Calcium 8.6 mg/dL (8.6-10.3); Carbon Dioxide 28 mEq/L (23-29); Chloride 95 mEq/L (98-107); Glucose 90 mg/dL (70-105); Magnesium 1.6 mg/dL (1.6-2.6); Osmolality,Calculated 280 (280-300); Phosphorous 3.9 mg/dL (2.7-4.5); Potassium 2.8 mEq/L (3.5-5.1); Sodium 136 mEq/L (136-145); eGFR For African Americans > 60 (> 60); eGFR For Non-African Americans > 60 (> 60)
[2019-04-09] MEDS: *HR* LORazepam 2 MG/ML VIAL IVP PRN ×7 (05:05→21:13)
[2019-04-09 05:43] LABS: BUN/Creatinine Ratio 12 (6-26); Blood Urea Nitrogen 7 mg/dL (6-20); Calcium 8.8 mg/dL (8.6-10.3); Carbon Dioxide 29 mEq/L (23-29); Chloride 92 mEq/L (98-107); Glucose 90 mg/dL (70-105); Magnesium 1.6 mg/dL (1.6-2.6); Osmolality,Calculated 280 (280-300); Phosphorous 3.8 mg/dL (2.7-4.5); Potassium 2.5 mEq/L (3.5-5.1); Sodium 136 mEq/L (136-145); eGFR For African Americans > 60 (> 60); eGFR For Non-African Americans > 60 (> 60)
[2019-04-09] MEDS: Vitamin B Complex/Vit C/Vit E 1 EACH TABLET PO SCH (07:51)
[2019-04-09] MEDS: Folic Acid 1 MG TABLET PO SCH (07:51)
[2019-04-09] MEDS: Aspirin 81 MG TAB.CHEW PO SCH (07:51)
[2019-04-09] MEDS ORDERED: 0.9 % Sodium Chloride w KCl 40 MEQ/1,000 ML MLS IVC SCH (08:30)
--- NOTE | 2019-04-09 09:24 | Neurology Progress Note ---
<Shashank France J - Last Filed: 04/09/19 09:35> Date of Encounter: 04/09/19 Time of Encounter: 09:21 Assessment and Plan (1) Weakness Current Visit: Yes Status: Acute (2) Frequent falls Current Visit: Yes Status: Acute (3) Syncope Current Visit: Yes Status: Acute Thus far the neurology workup has been unremarkable including negative MRI of the brain without any findings to suggest an underlying demylenating, or ischemic process or cerebellar atrophy. The EEG was negative for seizure activity. As such I do not suspect an acute neurological process as the cause of his multiple falls. 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 However, I also suggest ruling out a cardiac etiology, orthostasis and other etiologies for his metabolic derangements. Agree with PT/OT. Neurology will follow peripherally, please call should any urgent needs arise. Qualifiers: Qualified Code(s): R55 - Syncope and collapse Subjective Principal diagnosis: syncope Interval history: The patient was seen and examined at the bedside today. Clinically, he has remains stable with an uneventful stay thus far. He denies any return of syncope. He denies any auditory or visual hallucinations and does not appear to be actively withdrawing although he is somewhat encephalopathic. Neurologically he is intact. I discussed the neurological workup findings and the plan of care from this juncture forward from the neurology perspective. He denies any questions other than wanting to know when he will discharge. Objective - Constitutional Vitals: Temp Pulse Resp BP Pulse Ox 98.8 F 89 17 136/101 97 04/09/19 07:50 04/09/19 07:50 04/09/19 07:50 04/09/19 07:50 04/09/19 07:50 Exam: Examination: General Examination: *CONSTITUTIONAL: Alert and oriented to person, situation but disoriented to place. no acute distress *GENERAL APPEARANCE OF PATIENT appears older than stated age and generally unwell *EYES: pupils equal, round, reactive to light and accommodation, conjunctiva clear without masses or ulcerations, fundi normal. *CARDIOVASCULAR: RRR, no peripheral edema, distal temperature normal, dorsalis pedis pulses normal. 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 *ATTENTION AND CONCENTRATION are normal *LANGUAGE FUNCTION no significant aphasia or dysarthia was noted. *FUND OF KNOWLEDGE aware of current events, past history, vocabulary *MENTAL attention span and concentration normal. *CN II optic fundi were normal, no papilledema noted. *CN III,IV, PERRLA extraocular eye movements were full, no nystagmus and no ptosis noted. *CN V shows normal sensation and jaw opens symmetrically. *CN VII shows normal facial movement symmetrically, upper and lower bi laterally. *CN VIII shows no significant hearing loss on exam *CN IX-X palate elevated symmetrically *CN XI normal strength in the sternocleidomastoid muscles, symmetrical shoulder shrugging. *CN XII tongue protruded in the midline, with normal strength and movement. *SENSORY EXAMINATION light touch intact *REFLEXES: deep tendon reflexes were normal and symmetrical , grade 2/4 diffusely, no pathological reflexes were noted. *CEREBELLAR TESTING normal finger to nose, heel/knee/salinas *PAIN LEVEL 0/10 Results - Laboratory Findings CBC and BMP: 04/08/19 01:41 04/09/19 03:33 Abnormal lab findings: Abnormal lab results RBC 3.85 M/mcL (4.19-5.50) L 04/08/19 01:41 Hct 36.9 % (37.5-50.1) L 04/08/19 01:41 MCH 34.3 pg (28.0-33.3) H 04/08/19 01:41 MCHC 35.8 g/dL (31.6-35.5) H 04/08/19 01:41 Plt Count 98 K/mcL (140-400) L 04/08/19 01:41 Immature Plt Fraction 9.8 % (1.1-6.1) H 04/08/19 01:41 PT 12.5 Seconds (9.4-12.1) H 04/08/19 01:41 Sodium 135 mEq/L (136-145) L 04/08/19 01:41 Potassium 2.5 mEq/L (3.5-5.1) L* 04/09/19 03:33 Chloride 92 mEq/L (98-107) L 04/09/19 03:33 Carbon Dioxide 30 mEq/L (23-29) H 04/08/19 12:54 0.57 mg/dL (0.70-1.30) L 04/09/19 03:33 Glucose 126 mg/dL (70-105) H 04/08/19 01:41 POC Glucose 133 mg/dL (70-99) H 04/08/19 00:38 278 (280-300) L 04/07/19 21:34 Phosphorus 1.9 mg/dL (2.7-4.5) L 04/08/19 12:54 Magnesium 0.7 mg/dL (1.6-2.6) L 04/08/19 01:41 3.3 mg/dL (0.3-1.0) H 04/08/19 01:41 1.0 mg/dL (0.0-0.2) H 04/07/19 21:34 2.5 mg/dL (0.0-1.2) H 04/07/19 21:34 AST 62 Units/L (13-39) H 04/08/19 01:41 1242 Units/L (30-223) H 04/08/19 19:51 108 mg/dL (40-59) H 04/08/19 01:41 Trace mg/dL (Negative) H 04/08/19 19:35 Positive (Negative) A 04/08/19 19:35 Small (Negative) H 04/08/19 19:35 2.0 mg/dL (Normal) H 04/08/19 19:35 Consult Discharge Plan - Plan Referrals: NONE,PCP [Primary Care Provider] - <Moni Hood I - Last Filed: 04/09/19 15:26> Date of Encounter: 04/09/19 Assessment and Plan (1) Weakness Current Visit: Yes Status: Acute (2) Frequent falls Current Visit: Yes Status: Acute (3) Syncope Current Visit: Yes Status: Acute I have personally performed a face to face diagnostic evaluation, including HPI, EXAM, which is included in the Assesment and plan, which was discussed with Shashank France CNP, I agree with the above outlined documentation. Moni Hood MD. NeurologyI Qualifiers: Syncope type: unspecified Qualified Code(s): R55 - Syncope and collapse Objective - Constitutional Vitals: Temp Pulse Resp BP Pulse Ox 97.9 F 99 18 133/96 98 04/09/19 15:08 04/09/19 15:08 04/09/19 15:08 04/09/19 15:08 04/09/19 15:08 Results - Laboratory Findings CBC and BMP: 04/08/19 01:41 04/09/19 10:13 Abnormal lab findings: Abnormal lab results RBC 3.85 M/mcL (4.19-5.50) L 04/08/19 01:41 Hct 36.9 % (37.5-50.1) L 04/08/19 01:41 MCH 34.3 pg (28.0-33.3) H 04/08/19 01:41 MCHC 35.8 g/dL (31.6-35.5) H 04/08/19 01:41 Plt Count 98 K/mcL (140-400) L 04/08/19 01:41 Immature Plt Fraction 9.8 % (1.1-6.1) H 04/08/19 01:41 PT 12.5 Seconds (9.4-12.1) H 04/08/19 01:41 Sodium 133 mEq/L (136-145) L 04/09/19 10:13 Potassium 3.3 mEq/L (3.5-5.1) L D 04/09/19 10:13 Chloride 96 mEq/L (98-107) L 04/09/19 10:13 Carbon Dioxide 30 mEq/L (23-29) H 04/08/19 12:54 0.56 mg/dL (0.70-1.30) L 04/09/19 10:13 Glucose 106 mg/dL (70-105) H 04/09/19 10:13 POC Glucose 133 mg/dL (70-99) H 04/08/19 00:38 274 (280-300) L 04/09/19 10:13 Phosphorus 1.9 mg/dL (2.7-4.5) L 04/08/19 12:54 Magnesium 0.7 mg/dL (1.6-2.6) L 04/08/19 01:41 3.3 mg/dL (0.3-1.0) H 04/08/19 01:41 1.0 mg/dL (0.0-0.2) H 04/07/19 21:34 2.5 mg/dL (0.0-1.2) H 04/07/19 21:34 AST 62 Units/L (13-39) H 04/08/19 01:41 2528 Units/L (30-223) H 04/09/19 10:13 108 mg/dL (40-59) H 04/08/19 01:41 Trace mg/dL (Negative) H 04/08/19 19:35 Positive (Negative) A 04/08/19 19:35 Small (Negative) H 04/08/19 19:35 2.0 mg/dL (Normal) H 04/08/19 19:35
[2019-04-09 10:51] LABS: BUN/Creatinine Ratio 11 (6-26); Blood Urea Nitrogen 6 mg/dL (6-20); Calcium 8.6 mg/dL (8.6-10.3); Carbon Dioxide 27 mEq/L (23-29); Chloride 96 mEq/L (98-107); Glucose 106 mg/dL (70-105); Osmolality,Calculated 274 (280-300); Potassium 3.3 mEq/L (3.5-5.1); Sodium 133 mEq/L (136-145); eGFR For African Americans > 60 (> 60); eGFR For Non-African Americans > 60 (> 60)
--- NOTE | 2019-04-09 15:02 | Internal Med Progress Note ---
Hospitalist Progress Note - Encounter Date of Encounter: 04/09/19 Time of Encounter: 15:00 - Subjective Interval History: I have been and evaluated the patient at bedside. patient oriented to person, not time or place. patient denies headache, visual or auditory hallucinations. denies chest pain or shortness of breath. - Exam Vitals: Temp Pulse Resp BP Pulse Ox 97.7 F 86 17 127/103 98 04/09/19 13:00 04/09/19 13:00 04/09/19 13:00 04/09/19 13:00 04/09/19 13:00 Exam: Vitals: Reviewed General: Alert and orientedx1. In no visual distress Cardiovascular: RRR, normal S1 & S2, no rubs, murmurs or gallops. Lungs: CTA b/l, no wheezes or crackles. Abdomen: Soft, non-tender, no rigidity. Extremities: 4/5 strength in the lower extr b/l. Neurological: No focal neurological abnormalities Rest of the physical exam is non contributory - Assessment and Plan (1) Alcohol withdrawal Current Visit: Yes Status: Acute Assessment and Plan: patient denies headache, visual or auditory hallucination. no intention or resting tremors. Only alert to person, not time or place. Plan continue CIWA per protocol and telemetry monitoring. (2) Alcohol abuse Current Visit: Yes Status: Chronic Assessment and Plan: plan of care as above. 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 electrolyte being replaced. will repeat Potassium level 1 hour post replacement. (4) Syncope Current Visit: Yes Status: Acute Assessment and Plan: patient with extensive work-up: unremarkable. neurology recommendations appreciated. (5) Weakness of both lower extremities Current Visit: Yes Status: Chronic Assessment and Plan: Daily PT/OT. (6) Rhabdomyolysis Current Visit: Yes Status: Acute Assessment and Plan: patient with a Hx of frequent falls secondary to alcohol abuse. Continue IV hydration with D5/NS @75ml/hr. DVT Prophylaxis: enoxaparin subq for dvt prophylaxis - Summary of Assessment and Plan Summary of Assessment and Plan: patient to remain in the hospital due to alcohol withdrawal and hypokalemia - Time Spent with Patient Total time spent is greater than 50% in coordination of care (as documented) at patient's floor/unit and/or counseling patient: Greater than 35 minutes (40) Plan of Care Discussed with: nurse Internal Medicine: Result - Labs CBC & Chem 7: 04/08/19 01:41 04/09/19 10:13 Labs: BMP 04/09/19 04/09/19 04/09/19 00:40 03:33 10:13 Sodium 136 136 133 L Potassium 2.8 L 2.5 L* 3.3 L D Chloride 95 L 92 L 96 L Carbon Dioxide 28 29 27 BUN 7 7 6 Creatinine 0.51 L 0.57 L 0.56 L Glucose 90 90 106 H Calcium 8.6 8.8 8.6 Urine 04/08/19 Range/Units 19:35 Urine Color Dark Yellow (Yellow) Urine Clarity Clear (Clear) Urine pH 6.5 (5.0-8.0) pH Units Ur Specific [place] 1.019 (1.010-1.025) Urine Protein Trace (Neg-Trace) mg/dL Urine Glucose (UA) Normal (Normal) mg/dL - ABG Interpretation ABG results: PT/INR, D-dimer PT 12.5 Seconds (9.4-12.1) H 04/08/19 01:41 - Impressions Impressions Head MRA 04/08/19 10:24 IMPRESSION: Motion degraded exams. No acute infarct identified. No flow limiting stenosis or branch occlusion visualized within the head or neck. D/ / Hugh Way MD / Hugh Way MD Interpreting Provider: Hugh Way MD Echocardiogram 04/08/19 10:25 Impressions: LVEF 55%. Normal LV chamber size, wall thickness and function. Mild left ventricular diastolic dysfunction. Normal right ventricular structure and function. No evidence of pulmonary hypertension. No significant valvular dysfunction. Left Ventricular Wall Motion: Rest Echo Findings All wall segments showed normal motion. Findings: Study Quality * Technically adequate exam. ECG Findings * Normal sinus rhythm. Left Ventricle * LVEF 55%. * Normal LV chamber size, wall thickness and function. * Mild left ventricular diastolic dysfunction. * Atypical septal motion of unclear etiology. Right Ventricle * Normal right ventricular structure and function. Left Atrium * Normal left atrial size. Right Atrium * Normal right atrial size. Interatrial Septum * No evidence of a PFO by color Doppler. Aortic Valve * Trileaflet aortic valve with normal function. * No aortic regurgitation. * No aortic stenosis. Mitral Valve * Normal mitral valve structure and function. * No mitral regurgitation. * No mitral stenosis. Tricuspid Valve * Normal tricuspid valve structure and function. * Trace tricuspid regurgitation. * No evidence of pulmonary hypertension. Pulmonic Valve * Pulmonic valve not well visualized. * No pulmonic regurgitation. Aorta * Normally sized aortic root. Pericardium * The pericardium appears normal. IVC * Normal IVC dimensions and inspiratory collapse. Pulmonary Artery * Normal visualized portions of the main pulmonary artery. Neck MRA 04/08/19 10:25 IMPRESSION: Motion degraded exams. No acute infarct identified. No flow limiting stenosis or branch occlusion visualized within the head or neck. D/ / Hugh Way MD / Hugh Way MD Interpreting Provider: Hguh Way MD Brain MRI 04/08/19 11:03 IMPRESSION: Motion degraded exams. No acute infarct identified. No flow limiting stenosis or branch occlusion visualized within the head or neck. D/ / Hugh Way MD / Hugh Way MD Interpreting Provider: Hugh Way MD Consult Discharge Plan - Plan Referrals: NONE,PCP [Primary Care Provider] - (1) Alcohol withdrawal Qualifiers: Complication of substance-induced condition: with unspecified complication Qualified Code(s): F10.239 - Alcohol dependence with withdrawal, unspecified (4) Syncope Qualifiers: Syncope type: unspecified Qualified Code(s): R55 - Syncope and collapse (6) Rhabdomyolysis Qualifiers: Rhabdomyolysis type: traumatic Encounter type: sequela Qualified Code(s): T79.6XXS - Traumatic ischemia of muscle, sequela
[2019-04-09 16:43] LABS: BUN/Creatinine Ratio 12 (6-26); Blood Urea Nitrogen 7 mg/dL (6-20); Calcium 8.9 mg/dL (8.6-10.3); Carbon Dioxide 28 mEq/L (23-29); Chloride 95 mEq/L (98-107); Glucose 120 mg/dL (70-105); Osmolality,Calculated 279 (280-300); Potassium 3.4 mEq/L (3.5-5.1); Sodium 135 mEq/L (136-145); eGFR For African Americans > 60 (> 60); eGFR For Non-African Americans > 60 (> 60)
[2019-04-09] MEDS: Nicotine 14 MG PATCH.TD24 TD SCH (20:16)
[2019-04-09] MEDS: Dexmedetomidine HCl 400 MCG/100 ML MLS IVC SCH (21:41)
[2019-04-10] MEDS ORDERED: 0.9 % Sodium Chloride 500 ML ONE (01:02)
[2019-04-10 02:15] LABS: BUN/Creatinine Ratio 14 (6-26); Blood Urea Nitrogen 8 mg/dL (6-20); Calcium 8.5 mg/dL (8.6-10.3); Carbon Dioxide 26 mEq/L (23-29); Chloride 99 mEq/L (98-107); Glucose 112 mg/dL (70-105); Magnesium 1.8 mg/dL (1.6-2.6); Osmolality,Calculated 281 (280-300); Phosphorous 4.1 mg/dL (2.7-4.5); Potassium 3.2 mEq/L (3.5-5.1); Sodium 136 mEq/L (136-145); eGFR For African Americans > 60 (> 60); eGFR For Non-African Americans > 60 (> 60)
[2019-04-10] MEDS: Dexmedetomidine HCl 400 MCG/100 ML MLS IVC SCH (06:13)
[2019-04-10] MEDS: *HR* Enoxaparin 40 MG/0.4 ML SYRINGE SQ SCH (06:14)
[2019-04-10] MEDS: Vitamin B Complex/Vit C/Vit E 1 EACH TABLET PO SCH (11:13)
[2019-04-10] MEDS: Folic Acid 1 MG TABLET PO SCH (11:13)
[2019-04-10] MEDS: Nicotine 14 MG PATCH.TD24 TD SCH ×2 (11:14→11:18)
[2019-04-10] MEDS: Aspirin 81 MG TAB.CHEW PO SCH (11:14)
--- NOTE | 2019-04-10 14:03 | Internal Med Progress Note ---
Hospitalist Progress Note - Encounter Date of Encounter: 04/10/19 Time of Encounter: 14:00 - Subjective Interval History: I have seen and evaluated the patient at bedside. Patient reports feeling better today, denies chest pain, nausea, vomiting, headache or abd pain. Overnight patient had an episode of agitation requiring to placed on a precedex drip. as per nurse patient continues to have episodes of hallucinations. - Exam Vitals: Temp Pulse Resp BP Pulse Ox 97.9 F 59 18 144/98 96 04/10/19 11:15 04/10/19 11:15 04/10/19 11:15 04/10/19 07:30 04/10/19 07:30 Exam: Vitals: Reviewed General: Alert and oriented x2. In no visual distress Cardiovascular: RRR, normal S1 & S2, no rubs, murmurs or gallops. Lungs: CTA b/l, no wheezes or crackles. Abdomen: Soft, non-tender, no rigidity. NABS in all 4 quadrants Extremities: 4/5 strength in the lower extr b/l. Neurological: No focal neurological abnormalities Rest of the physical exam is non contributory - Assessment and Plan (1) Alcohol withdrawal Current Visit: Yes Status: Acute Assessment and Plan: patient had an episode of moderate agitation overnight which required to be started on a precedx drip. 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 (3) Hypokalemia Current Visit: Yes Status: Acute Assessment and Plan: electrolyte being replaced. continue daily oral Potassium 40 meq/PO daily. will re-assess level tomorrow morning (4) Syncope Current Visit: Yes Status: Chronic Assessment and Plan: patient with extensive work-up: unremarkable. neurology recommendations appreciated. (5) Weakness of both lower extremities Current Visit: Yes Status: Chronic Assessment and Plan: continue with daily PT/OT (6) Rhabdomyolysis Current Visit: Yes Status: Acute Assessment and Plan: kidney function wnl. encourage oral fluid intake. DVT Prophylaxis: on enoxaparin 40mg/SubQ daily - Summary of Assessment and Plan Summary of Assessment and Plan: Patient to remain in the hospital due to alcohol withdrawal on a precedex drip. - Time Spent with Patient Total time spent is greater than 50% in coordination of care (as documented) at patient's floor/unit and/or counseling patient: Greater than 35 minutes (40) Plan of Care Discussed with: nurse Internal Medicine: Result - Labs CBC & Chem 7: 04/08/19 01:41 04/10/19 01:18 Labs: BMP 04/09/19 04/10/19 16:12 01:18 Sodium 135 L 136 Potassium 3.4 L 3.2 L Chloride 95 L 99 Carbon Dioxide 28 26 BUN 7 8 Creatinine 0.60 L 0.57 L Glucose 120 H 112 H Calcium 8.9 8.5 L - ABG Interpretation ABG results: PT/INR, D-dimer PT 12.5 Seconds (9.4-12.1) H 04/08/19 01:41 - Impressions Impressions Echocardiogram 04/08/19 10:25 Impressions: LVEF 55%. Normal LV chamber size, wall thickness and function. Mild left ventricular diastolic dysfunction. Normal right ventricular structure and function. No evidence of pulmonary hypertension. No significant valvular dysfunction. Left Ventricular Wall Motion: Rest Echo Findings All wall segments showed normal motion. Findings: Study Quality * Technically adequate exam. ECG Findings * Normal sinus rhythm. Left Ventricle * LVEF 55%. * Normal LV chamber size, wall thickness and function. * Mild left ventricular diastolic dysfunction. * Atypical septal motion of unclear etiology. Right Ventricle * Normal right ventricular structure and function. Left Atrium * Normal left atrial size. Right Atrium * Normal right atrial size. Interatrial Septum * No evidence of a PFO by color Doppler. Aortic Valve * Trileaflet aortic valve with normal function. * No aortic regurgitation. * No aortic stenosis. Mitral Valve * Normal mitral valve structure and function. * No mitral regurgitation. * No mitral stenosis. Tricuspid Valve * Normal tricuspid valve structure and function. * Trace tricuspid regurgitation. * No evidence of pulmonary hypertension. Pulmonic Valve * Pulmonic valve not well visualized. * No pulmonic regurgitation. Aorta * Normally sized aortic root. Pericardium * The pericardium appears normal. IVC * Normal IVC dimensions and inspiratory collapse. Pulmonary Artery * Normal visualized portions of the main pulmonary artery. Consult Discharge Plan - Plan Referrals: Dara Cooley DO [Resident] - 04/18/19 9:00 am ( Take with you to your appointment your INS. Cards, Picture ID, and a list of all medications including over the counter meds. If you need to cancel please call [phone] 24 hours prior to your appointment. This office does not give out controlled meds. If you do not receive your new patient packet in the mail please arrive 30 minutes early to your appointment to fill out your paper work.) (1) Alcohol withdrawal Qualifiers: Complication of substance-induced condition: with unspecified complication Qualified Code(s): F10.239 - Alcohol dependence with withdrawal, unspecified (4) Syncope Qualifiers: Syncope type: unspecified Qualified Code(s): R55 - Syncope and collapse (6) Rhabdomyolysis Qualifiers: Rhabdomyolysis type: traumatic Encounter type: sequela Qualified Code(s): T79.6XXS - Traumatic ischemia of muscle, sequela
[2019-04-11] MEDS: *HR* Enoxaparin 40 MG/0.4 ML SYRINGE SQ SCH (05:03)
[2019-04-11 07:43] LABS: BUN/Creatinine Ratio 23 (6-26); Blood Urea Nitrogen 16 mg/dL (6-20); Calcium 9.1 mg/dL (8.6-10.3); Carbon Dioxide 25 mEq/L (23-29); Chloride 100 mEq/L (98-107); Glucose 110 mg/dL (70-105); Magnesium 1.7 mg/dL (1.6-2.6); Osmolality,Calculated 284 (280-300); Phosphorous 4.3 mg/dL (2.7-4.5); Potassium 3.7 mEq/L (3.5-5.1); Sodium 136 mEq/L (136-145); eGFR For African Americans > 60 (> 60); eGFR For Non-African Americans > 60 (> 60)
[2019-04-11] MEDS: Vitamin B Complex/Vit C/Vit E 1 EACH TABLET PO SCH (08:27)
[2019-04-11] MEDS: Nicotine 14 MG PATCH.TD24 TD SCH (08:27)
[2019-04-11] MEDS: Folic Acid 1 MG TABLET PO SCH (08:27)
[2019-04-11] MEDS: Aspirin 81 MG TAB.CHEW PO SCH (08:27)
[2019-04-11 09:49] LABS: Basophils % 0.5 %; Eosinophils # 0.1 K/mcL (0.0-0.6); Eosinophils % 1.6 %; Hematocrit 33.7 % (37.5-50.1); Hemoglobin 11.6 g/dL (12.9-16.9); Immature Granulocytes % 0.5 % (0-4); Lymphocytes # 2.2 K/mcL (0.6-4.6); Lymphocytes % 28.7 %; Mean Corpuscular HGB Conc 34.4 g/dL (31.6-35.5); Mean Corpuscular Hemoglobin 34.9 pg (28.0-33.3); Mean Corpuscular Volume 101.5 fL (83.0-100.0); Mean Platelet Volume 10.2 fL (9.4-12.4); Monocytes # 1.1 K/mcL (0.0-1.3); Monocytes % 14.5 %; Neutrophils # 4.1 K/mcL (1.6-8.9); Platelet Count 157 K/mcL (140-400); Red Blood Count 3.32 M/mcL (4.19-5.50); Red Cell Distribution Width 14.6 % (11.5-14.5); Segmented Neutrophils % 54.2 %; White Blood Count 7.6 K/mcL (4.3-11.1)
--- NOTE | 2019-04-11 12:36 | Internal Med Progress Note ---
Hospitalist Progress Note - Encounter Date of Encounter: 04/11/19 Time of Encounter: 12:32 - Subjective Interval History: I have seen and evaluated the patient at bedside. patient reports feeling well. denies visual or auditory hallucination, no headache or light headedness. no visual resting or intentional tremors. - Exam Vitals: Temp Pulse Resp BP Pulse Ox 97.9 F 82 18 120/94 96 04/11/19 11:19 04/11/19 11:19 04/11/19 11:19 04/11/19 11:19 04/11/19 11:19 Exam: Vitals: Reviewed General: Alert and oriented x2. In no visual distress Cardiovascular: RRR, normal S1 & S2, no rubs, murmurs or gallops. Lungs: CTA b/l, no wheezes or crackles. Abdomen: Soft, non-tender, no rigidity. NABS in all 4 quadrants Extremities: 4/5 strength in the lower extr b/l. Neurological: No focal neurological abnormalities Rest of the physical exam is non contributory - Assessment and Plan (1) Alcohol withdrawal Current Visit: Yes Status: Acute Assessment and Plan: patient off precedex since yesterday evening. patient has not required any medications from the CIWA protocol. AOx4. In no distress. will observe patient in the hospital for 24 more hours patient will need to be discharged to [facility]. (2) Hypokalemia Current Visit: Yes Status: Resolved (3) Alcohol abuse Current Visit: Yes Status: Chronic Assessment and Plan: plan of care as per problem #1. (4) Frequent falls Current Visit: Yes Status: Acute Assessment and Plan: continue with daily PT/OT. DVT Prophylaxis: on Enoxaparin 40mg SubQ - Time Spent with Patient Total time spent is greater than 50% in coordination of care (as documented) at patient's floor/unit and/or counseling patient: Greater than 35 minutes (40) Plan of Care Discussed with: patient (and the nurse.) Internal Medicine: Result - Labs CBC & Chem 7: 04/11/19 09:31 04/11/19 06:25 Labs: Short CBC 04/11/19 Range/Units 09:31 WBC 7.6 (4.3-11.1) K/mcL Hgb 11.6 L D (12.9-16.9) g/dL Hct 33.7 L (37.5-50.1) % Plt Count 157 D (140-400) K/mcL Neutrophils # 4.1 (1.6-8.9) K/mcL BMP 04/11/19 06:25 Sodium 136 Potassium 3.7 Chloride 100 Carbon Dioxide 25 BUN 16 Creatinine 0.70 Glucose 110 H Calcium 9.1 - ABG Interpretation ABG results: PT/INR, D-dimer PT 12.5 Seconds (9.4-12.1) H 04/08/19 01:41 Consult Discharge Plan - Plan Referrals: Dara Cooley DO [Resident] - 04/18/19 9:00 am ( Take with you to your appointment your INS. Cards, Picture ID, and a list of all medications including over the counter meds. If you need to cancel please call [phone] 24 hours prior to your appointment. This office does not give out controlled meds. If you do not receive your new patient packet in the mail please arrive 30 minutes early to your appointment to fill out your paper work.) (1) Alcohol withdrawal Qualifiers: Complication of substance-induced condition: with unspecified complication Qualified Code(s): F10.239 - Alcohol dependence with withdrawal, unspecified
[2019-04-11] MEDS ORDERED: Ibuprofen 600 MG TABLET PO PRN (22:29)
[2019-04-12] MEDS: *HR* HYDROcodone/Acet 5/325 mg TABLET PO PRN ×3 (00:41→15:54)
[2019-04-12 02:26] LABS: BUN/Creatinine Ratio 22 (6-26); Blood Urea Nitrogen 15 mg/dL (6-20); Calcium 9.2 mg/dL (8.6-10.3); Carbon Dioxide 27 mEq/L (23-29); Chloride 101 mEq/L (98-107); Glucose 105 mg/dL (70-105); Magnesium 1.7 mg/dL (1.6-2.6); Osmolality,Calculated 281 (280-300); Phosphorous 4.4 mg/dL (2.7-4.5); Sodium 135 mEq/L (136-145); eGFR For African Americans > 60 (> 60); eGFR For Non-African Americans > 60 (> 60)
[2019-04-12] MEDS: *HR* Enoxaparin 40 MG/0.4 ML SYRINGE SQ SCH (05:15)
[2019-04-12] MEDS: Vitamin B Complex/Vit C/Vit E 1 EACH TABLET PO SCH (08:24)
[2019-04-12] MEDS: Folic Acid 1 MG TABLET PO SCH (08:24)
[2019-04-12] MEDS: Aspirin 81 MG TAB.CHEW PO SCH (08:24)
--- NOTE | 2019-04-12 09:19 | Discharge Summary ---
Orders not resulted at time of discharge: Pending orders 04/08/19 19:46 Urinalysis Reflex Cult & Micro [URIN] Stat Date of Encounter: 04/12/19 Time of Encounter: 09:17 - Discharge Diagnosis (1) Alcohol withdrawal Priority: Primary Status: Resolved Qualifiers: Complication of substance-induced condition: with unspecified complication Qualified Code(s): F10.239 - Alcohol dependence with withdrawal, unspecified (2) Hypokalemia Priority: Secondary Status: Resolved (3) Alcohol abuse Priority: Secondary Status: Chronic (4) Frequent falls Priority: Secondary Status: Acute (5) Rhabdomyolysis Priority: Secondary Status: Acute Qualifiers: Rhabdomyolysis type: traumatic Encounter type: sequela Qualified Code(s): T79.6XXS - Traumatic ischemia of muscle, sequela Hospital course: Mr. Kevin is a 53 year old male no significant past medical history who presented to the ER with a complaint of multiple falls. The patient has history of alcohol abuse where he drink 3 alcoholic beverages every night. Patient was found to have severe hypokalemia. Patient was admitted to the hospital due to alcohol withdrawal, rhabdomyolysis, and hypokalemia. Patient was placed on CIWA protocol, and precedex drip. Skelethal survery done due to frequent falls, unremarkable. Patient's acute symptoms on presentation resolved and has been off CIWA protocol for the past 48 hours, electrolyte back to normal limits, patient is clinically stable to the discharged to [facility]. - Time Spent with Patient Total time spent providing and/or coordinating discharge services: Time spent: Greater than 30 minutes (35) - Discharge Medications Prescriptions: New Folic Acid 1 mg PO DAILY 30 Days #30 tablet Vitamin B Complex/Vit C/Vit E [Stresstab] 1 each PO DAILY 30 Days #30 tablet Home Medications: Folic Acid 1 mg PO DAILY 30 Days #30 tablet 04/12/19 [Rx] Vitamin B Complex/Vit C/Vit E [Stresstab] 1 each PO DAILY 30 Days #30 tablet 04/12/19 [Rx] Allergies/Adverse Reactions: Allergy/AdvReac Type Severity Reaction Status Date / Time No Known Allergies Allergy Verified 04/07/19 19:35 Date of admission: 04/11/19 12:35 Primary care physician: PCP NONE Consults: 04/07/19 22:52 Consult to Crisis Mental Health Therapist [CONS] Routine Reason for SW Consult: alcohol withdrawal 04/08/19 10:14 Consult to Occupational Therapy [CONS] Routine Comment: Evaluate, develop and implement POC Reason for Consult: weekness Does patient have active BEDREST order?: No Is patient medically & hemodynamically stable?: Yes Consult to Physical Therapy [CONS] Routine Comment: Evaluate, develop and implement POC Reason for Consult: weekness Does patient have active BEDREST order?: No Is patient medically & hemodynamically stable?: Yes 04/08/19 12:20 Consult to Neurology [CONS] Routine Consulting Provider: Neurology [facility] Reason for Consult: concern for CVA Call Completed: Yes 04/08/19 12:46 Consult to Interpret Exam [CONS] Routine Consulting Provider: Vaelntin Fam Consult to Interpret Exam: Interpret EEG - Constitutional Vitals: Temp Pulse Resp BP Pulse Ox 98.3 F 89 16 153/100 98 04/12/19 07:25 04/12/19 08:35 04/12/19 07:25 04/12/19 07:25 04/12/19 07:25 General appearance: Present: A&O X 3 Exam: Vitals: Reviewed General: Alert and oriented x2. In no visual distress Cardiovascular: RRR, normal S1 & S2, no rubs, murmurs or gallops. Lungs: CTA b/l, no wheezes or crackles. Abdomen: Soft, non-tender, no rigidity. NABS in all 4 quadrants Extremities: 4/5 strength in the lower extr b/l. Neurological: No focal neurological abnormalities Rest of the physical exam is non contributory - Patient Status Disposition: Transfer SNF Condition: Good Functional capacity at discharge: independent ambulation Overall status at discharge: patient is progressing back to baseline - Discharge Instructions Follow Up With: Dara Cooley DO [Resident] - 04/18/19 9:00 am ( Take with you to your appointment your INS. Cards, Picture ID, and a list of all medications including over the counter meds. If you need to cancel please call [phone] 24 hours prior to your appointment. This office does not give out controlled meds. If you do not receive your new patient packet in the mail please arrive 30 minutes early to your appointment to fill out your paper work.) - Diet and Activity Activity: as per physical therapy Diet: low salt diet
--- NOTE | 2019-04-12 09:26 | Physician Discharge Referral ---
ExtendedCare Referral Info Transfer To: [facility] - Diagnosis (1) Alcohol withdrawal Priority: Primary Status: Resolved (2) Hypokalemia Priority: Secondary Status: Resolved (3) Alcohol abuse Priority: Secondary Status: Chronic (4) Frequent falls Status: Acute Aware of Diagnosis: Patient Aware of Prognosis: Patient - Transfer Medications Prescriptions: Folic Acid 1 mg PO DAILY 30 Days #30 tablet Vitamin B Complex/Vit C/Vit E [Stresstab] 1 each PO DAILY 30 Days #30 tablet Home Medications: Folic Acid 1 mg PO DAILY 30 Days #30 tablet 04/12/19 [Rx] Vitamin B Complex/Vit C/Vit E [Stresstab] 1 each PO DAILY 30 Days #30 tablet 04/12/19 [Rx] Allergies/Adverse Reactions: Allergy/AdvReac Type Severity Reaction Status Date / Time No Known Allergies Allergy Verified 04/07/19 19:35 - Respiratory Orders None Smoking Cessation: Smoking cessation has been advised. For more information, call the [employer] Tobacco Quit Line at 7-331-UOVB-NOW. - Advance Directives Code Status: Full Code - Mobility Orders Ambulate - Rehabiliation Orders Rehab Potential: Good Rehab Orders: Evaluation for Physical Therapy, Evaluation for Occupational Therapy - Diet Orders Regular CERTIFICATION: I certify that the transfer of the above named patient to an Extended Care Facility is necessary for the continuing treatment of the diagnosis listed. The above information is true and accurate reflection of patient's current condition. Confidential - Redisclosure prohibited without a patient's written consent.
[2019-04-12 11:37] VITALS: BP 162/118
== END 2019-04-12 16:00 | DRG 775 ==
LOC: EMEROOARM 19:20 → 2NNU 19:20 → SUATTDRO 23:27 → 2NNU 04-08 01:24
PROVIDERS: ADMIT Internal Medicine Nephrology; ATTEND Internal Medicine

== ENCOUNTER 2019-09-05 16:38 | Inpatient (IN) ==
[2019-09-05] MEDS ORDERED: 0.9 % Sodium Chloride 1,000 ML IVC ONE ×3 (16:48→18:47)
[2019-09-05 17:52] LABS: Basophils % 0.5 %
[2019-09-05 17:55] LABS: Bilirubin,Urine Moderate (Negative); Blood,Urine Negative (Negative); Clarity,Urine Cloudy (Clear); Color,Urine Dark Yellow (Yellow); Glucose,Urine (UA) Normal (Normal); Ketones,Urine 40 mg/dL (Negative); Leukocyte Esterase,Urine Moderate (Negative); Nitrite,Urine Negative (Negative); PH,Urine 6.5 pH Units (5.0-8.0); Protein,Urine 30 mg/dL (Neg-Trace); Specific Gravity,Urine 1.018 (1.010-1.025); Urobilinogen,Urine Normal (Normal)
[2019-09-05 17:59] LABS: Bacteria,Urine Many per hpf (None-Few); Hyaline Casts,Urine Few per lpf (None-Few); Squamous Epithelial Cell,Urine Few per lpf (None-Few); WBC,Urine 30-50 per hpf (0-3)
[2019-09-05 18:06] LABS: Eosinophils % 0.7 %; Hematocrit 28.6 % (37.5-50.1); Hemoglobin 11.2 g/dL (12.9-16.9); Immature Granulocytes % 3.6 % (0-4); Lymphocytes # 0.9 K/mcL (0.6-4.6); Mean Corpuscular Hemoglobin 36.8 pg (28.0-33.3); Mean Corpuscular Volume 94.1 fL (83.0-100.0); Monocytes # 0.2 K/mcL (0.0-1.3); Monocytes % 4.1 %; Neutrophils # 4.4 K/mcL (1.6-8.9); Platelet Count 139 K/mcL (140-400); Red Blood Count 3.04 M/mcL (4.19-5.50); Red Cell Distribution Width 12.7 % (11.5-14.5); Segmented Neutrophils % 76.1 %; White Blood Count 5.8 K/mcL (4.3-11.1)
[2019-09-05 18:07] LABS: Mean Corpuscular HGB Conc 39.2 g/dL (31.6-35.5)
[2019-09-05 18:14] LABS: Alanine Aminotransferase 17 Units/L (7-52); Albumin 3.9 g/dL (3.5-5.7); Albumin/Globulin Ratio 1.2 (1.1-2.2); Alkaline Phosphatase 153 Units/L (34-104); Aspartate Amino Transferase 33 Units/L (13-39); BUN/Creatinine Ratio 29 (6-26); Bilirubin,Total 1.7 mg/dL (0.3-1.0); Blood Urea Nitrogen 17 mg/dL (6-20); Calcium 9.7 mg/dL (8.6-10.3); Carbon Dioxide 34 mEq/L (23-29); Chloride 63 mEq/L (98-107); Creatine Kinase 52 Units/L (30-223); Globulin 3.2 g/dL (2.4-3.5); Glucose 128 mg/dL (70-105); Magnesium 1.4 mg/dL (1.6-2.6); Osmolality,Calculated 247 (280-300); Potassium 1.9 mEq/L (3.5-5.1); Sodium 117 mEq/L (136-145); Total Protein 7.1 g/dL (6.4-8.9); Troponin I 0.03 ng/mL (< 0.04); eGFR For African Americans > 60 (> 60); eGFR For Non-African Americans > 60 (> 60)
[2019-09-05 18:29] LABS: Platelet Estimate Slight Decrease (Normal)
[2019-09-05 18:42] LABS: RBC,Urine 0-3 per hpf (0-3)
[2019-09-05 18:43] LABS: Mucus,Urine Few (Few); Other Crystals,Urine Present; Yeast,Urine Few per hpf (None Seen)
[2019-09-05] MEDS ORDERED: cefTRIAXone 2,000 MG in Water for inj. (sterile) 20 ML IVP ONE (18:46)
[2019-09-05] MEDS ORDERED: Fluconazole 100 MG TABLET PO ONE (18:48)
[2019-09-05] MEDS ORDERED: Ondansetron 4 MG/2 ML VIAL IVP PRN (19:54)
[2019-09-05] MEDS ORDERED: Naloxone 0.4 MG/ML INJ IVP PRN (19:54)
[2019-09-05] MEDS ORDERED: 0.9 % Sodium Chloride 1,000 ML IVC SCH ×2 (20:00→23:00)
[2019-09-05 20:37] LABS: Amphetamine Screen,Urine Negative ng/mL (Cutoff=1000); Barbiturate Screen,Urine Negative ng/mL (Cutoff=200); Benzodiazepines Screen,Urine Negative ng/mL (Cutoff=200); Cannabinoid Screen,Urine Negative ng/mL (Cutoff = 50); Cocaine Screen,Urine Negative ng/mL (Cutoff= 300); Opiate Screen,Urine Negative ng/mL (Cutoff=300); Phencyclidine Screen,Urine Negative ng/mL (Cutoff=25)
[2019-09-05 20:52] LABS: Ethanol < 10 mg/dL (Less than 10)
[2019-09-05 20:57] LABS: BUN/Creatinine Ratio 31 (6-26); Blood Urea Nitrogen 16 mg/dL (6-20); Calcium 8.6 mg/dL (8.6-10.3); Carbon Dioxide 32 mEq/L (23-29); Chloride 68 mEq/L (98-107); Glucose 115 mg/dL (70-105); Osmolality,Calculated 248 (280-300); Potassium 1.9 mEq/L (3.5-5.1); Sodium 118 mEq/L (136-145); eGFR For African Americans > 60 (> 60); eGFR For Non-African Americans > 60 (> 60)
[2019-09-05 21:04] LABS: Thyroid Stimulating Hormone 2.522 mcIU/mL (0.340-5.600)
[2019-09-05] MEDS ORDERED: 0.9 % Sodium Chloride w KCl 20 MEQ/1,000 ML MLS IVC ONE (23:30)
[2019-09-05] MEDS: *HR* Heparin 5,000 UNIT/ML VIAL SQ SCH (23:54)
[2019-09-06 01:10] LABS: Chloride 74 mEq/L (98-107); Potassium 2.2 mEq/L (3.5-5.1); Sodium 120 mEq/L (136-145)
[2019-09-06 01:32] LABS: BUN/Creatinine Ratio 30 (6-26); Blood Urea Nitrogen 14 mg/dL (6-20); Calcium 8.9 mg/dL (8.6-10.3); Carbon Dioxide 31 mEq/L (23-29); Glucose 113 mg/dL (70-105); Osmolality,Calculated 251 (280-300); eGFR For African Americans > 60 (> 60); eGFR For Non-African Americans > 60 (> 60)
[2019-09-06 03:55] LABS: BUN/Creatinine Ratio 33 (6-26); Blood Urea Nitrogen 14 mg/dL (6-20); Calcium 8.4 mg/dL (8.6-10.3); Carbon Dioxide 30 mEq/L (23-29); Chloride 75 mEq/L (98-107); Glucose 107 mg/dL (70-105); Osmolality,Calculated 251 (280-300); Potassium 2.2 mEq/L (3.5-5.1); Sodium 120 mEq/L (136-145); eGFR For African Americans > 60 (> 60); eGFR For Non-African Americans > 60 (> 60)
[2019-09-06] MEDS ORDERED: Potassium Chloride Elixir 20 MEQ/15 ML UDC PO ONE ×2 (04:34→09:04)
[2019-09-06 05:33] LABS: % Iron Saturation 87 % (20-55); Iron 206 mcg/dL (65-175); Transferrin 169 mg/dL (203-362)
[2019-09-06 05:34] LABS: BUN/Creatinine Ratio 30 (6-26); Blood Urea Nitrogen 13 mg/dL (6-20); Calcium 8.6 mg/dL (8.6-10.3); Carbon Dioxide 32 mEq/L (23-29); Chloride 77 mEq/L (98-107); Glucose 110 mg/dL (70-105); Osmolality,Calculated 253 (280-300); Potassium 2.3 mEq/L (3.5-5.1); Sodium 121 mEq/L (136-145); eGFR For African Americans > 60 (> 60); eGFR For Non-African Americans > 60 (> 60)
[2019-09-06 05:57] LABS: Ferritin > 1500 ng/mL (20-250)
[2019-09-06] MEDS ORDERED: *HR* LORazepam 2 MG/ML VIAL IVP PRN ×6 (06:25→11:09)
[2019-09-06 07:26] LABS: BUN/Creatinine Ratio 30 (6-26); Blood Urea Nitrogen 13 mg/dL (6-20); Calcium 8.5 mg/dL (8.6-10.3); Carbon Dioxide 32 mEq/L (23-29); Chloride 77 mEq/L (98-107); Glucose 135 mg/dL (70-105); Osmolality,Calculated 258 (280-300); Potassium 2.6 mEq/L (3.5-5.1); Sodium 123 mEq/L (136-145); eGFR For African Americans > 60 (> 60); eGFR For Non-African Americans > 60 (> 60)
[2019-09-06 08:11] LABS: Magnesium 1.9 mg/dL (1.6-2.6)
[2019-09-06] MEDS: *HR* Heparin 5,000 UNIT/ML VIAL SQ SCH ×2 (08:55→16:03)
[2019-09-06 10:14] LABS: BUN/Creatinine Ratio 28 (6-26); Blood Urea Nitrogen 13 mg/dL (6-20); Calcium 8.5 mg/dL (8.6-10.3); Carbon Dioxide 30 mEq/L (23-29); Chloride 79 mEq/L (98-107); Glucose 117 mg/dL (70-105); Osmolality,Calculated 257 (280-300); Potassium 2.5 mEq/L (3.5-5.1); Sodium 123 mEq/L (136-145); eGFR For African Americans > 60 (> 60); eGFR For Non-African Americans > 60 (> 60)
[2019-09-06] MEDS ORDERED: Naloxone 0.4 MG/ML INJ IVP PRN (11:09)
[2019-09-06] MEDS ORDERED: Ondansetron 4 MG/2 ML VIAL IVP PRN (11:09)
[2019-09-06 12:03] LABS: BUN/Creatinine Ratio 31 (6-26); Blood Urea Nitrogen 14 mg/dL (6-20); Calcium 8.5 mg/dL (8.6-10.3); Carbon Dioxide 30 mEq/L (23-29); Chloride 82 mEq/L (98-107); Glucose 130 mg/dL (70-105); Osmolality,Calculated 256 (280-300); Potassium 2.6 mEq/L (3.5-5.1); Sodium 122 mEq/L (136-145); eGFR For African Americans > 60 (> 60); eGFR For Non-African Americans > 60 (> 60)
[2019-09-06] MEDS ORDERED: Potassium Chloride 40 MEQ, Lidocaine 1% 2 ML in 0.9 % Sodium Chloride 500 ML IVPB ONE (14:14)
[2019-09-06 14:31] LABS: BUN/Creatinine Ratio 26 (6-26); Blood Urea Nitrogen 14 mg/dL (6-20); Calcium 8.7 mg/dL (8.6-10.3); Carbon Dioxide 31 mEq/L (23-29); Chloride 80 mEq/L (98-107); Glucose 150 mg/dL (70-105); Osmolality,Calculated 261 (280-300); Potassium 2.4 mEq/L (3.5-5.1); Sodium 124 mEq/L (136-145); eGFR For African Americans > 60 (> 60); eGFR For Non-African Americans > 60 (> 60)
[2019-09-06 17:01] LABS: BUN/Creatinine Ratio 25 (6-26); Blood Urea Nitrogen 14 mg/dL (6-20); Calcium 8.5 mg/dL (8.6-10.3); Carbon Dioxide 30 mEq/L (23-29); Chloride 81 mEq/L (98-107); Glucose 143 mg/dL (70-105); Osmolality,Calculated 261 (280-300); Potassium 2.4 mEq/L (3.5-5.1); Sodium 124 mEq/L (136-145); eGFR For African Americans > 60 (> 60); eGFR For Non-African Americans > 60 (> 60)
[2019-09-06] MEDS: Thiamine (B-1) 100 MG, Folic Acid 1 MG, MVI, adult with vitamin K 10 ML in 0.9 % Sodi... IVPB SCH (17:42)
[2019-09-06] MEDS ORDERED: Thiamine (B-1) 100 MG, Folic Acid 1 MG, MVI, adult with vitamin K 10 ML in 0.9 % Sodi... IVPB SCH (18:00)
[2019-09-06 18:52] LABS: BUN/Creatinine Ratio 28 (6-26); Blood Urea Nitrogen 16 mg/dL (6-20); Calcium 8.6 mg/dL (8.6-10.3); Carbon Dioxide 29 mEq/L (23-29); Chloride 84 mEq/L (98-107); Glucose 187 mg/dL (70-105); Osmolality,Calculated 264 (280-300); Potassium 2.5 mEq/L (3.5-5.1); Sodium 124 mEq/L (136-145); eGFR For African Americans > 60 (> 60); eGFR For Non-African Americans > 60 (> 60)
[2019-09-06 21:10] LABS: BUN/Creatinine Ratio 31 (6-26); Blood Urea Nitrogen 16 mg/dL (6-20); Calcium 8.4 mg/dL (8.6-10.3); Carbon Dioxide 31 mEq/L (23-29); Chloride 85 mEq/L (98-107); Glucose 146 mg/dL (70-105); Osmolality,Calculated 264 (280-300); Potassium 2.6 mEq/L (3.5-5.1); Sodium 125 mEq/L (136-145); eGFR For African Americans > 60 (> 60); eGFR For Non-African Americans > 60 (> 60)
[2019-09-06 23:51] LABS: BUN/Creatinine Ratio 36 (6-26); Blood Urea Nitrogen 16 mg/dL (6-20); Calcium 8.4 mg/dL (8.6-10.3); Carbon Dioxide 30 mEq/L (23-29); Chloride 86 mEq/L (98-107); Glucose 126 mg/dL (70-105); Osmolality,Calculated 263 (280-300); Potassium 2.5 mEq/L (3.5-5.1); Sodium 125 mEq/L (136-145); eGFR For African Americans > 60 (> 60); eGFR For Non-African Americans > 60 (> 60)
[2019-09-07] MEDS ORDERED: Potassium Chloride 40 MEQ, Lidocaine 1% 2 ML in 0.9 % Sodium Chloride 500 ML IVPB ONE (00:02)
[2019-09-07] MEDS ORDERED: Potassium Chloride Elixir 20 MEQ/15 ML UDC PO ONE (00:02)
[2019-09-07] MEDS: *HR* Heparin 5,000 UNIT/ML VIAL SQ SCH ×4 (00:07→23:33)
[2019-09-07 08:52] LABS: BUN/Creatinine Ratio 30 (6-26); Blood Urea Nitrogen 14 mg/dL (6-20); Calcium 8.8 mg/dL (8.6-10.3); Carbon Dioxide 30 mEq/L (23-29); Chloride 89 mEq/L (98-107); Glucose 105 mg/dL (70-105); Osmolality,Calculated 267 (280-300); Potassium 2.9 mEq/L (3.5-5.1); Sodium 128 mEq/L (136-145); eGFR For African Americans > 60 (> 60); eGFR For Non-African Americans > 60 (> 60)
[2019-09-07] MEDS: Potassium Chloride Elixir 20 MEQ/15 ML UDC PO SCH ×2 (09:37→14:12)
[2019-09-07] MEDS: 0.9 % Sodium Chloride 1,000 ML IVC SCH ×2 (11:07→23:33)
[2019-09-07 18:29] LABS: BUN/Creatinine Ratio 31 (6-26); Blood Urea Nitrogen 14 mg/dL (6-20); Calcium 8.5 mg/dL (8.6-10.3); Carbon Dioxide 26 mEq/L (23-29); Chloride 95 mEq/L (98-107); Glucose 138 mg/dL (70-105); Osmolality,Calculated 271 (280-300); Potassium 3.1 mEq/L (3.5-5.1); Sodium 129 mEq/L (136-145); eGFR For African Americans > 60 (> 60); eGFR For Non-African Americans > 60 (> 60)
[2019-09-07] MEDS: Thiamine (B-1) 100 MG, Folic Acid 1 MG, MVI, adult with vitamin K 10 ML in 0.9 % Sodi... IVPB SCH (19:14)
[2019-09-07] MEDS: Melatonin 3 MG TABLET PO SCH (20:33)
[2019-09-08 06:59] LABS: BUN/Creatinine Ratio 27 (6-26); Blood Urea Nitrogen 10 mg/dL (6-20); Calcium 8.2 mg/dL (8.6-10.3); Carbon Dioxide 26 mEq/L (23-29); Chloride 96 mEq/L (98-107); Glucose 113 mg/dL (70-105); Osmolality,Calculated 274 (280-300); Potassium 2.8 mEq/L (3.5-5.1); Sodium 132 mEq/L (136-145); eGFR For African Americans > 60 (> 60); eGFR For Non-African Americans > 60 (> 60)
[2019-09-08 07:02] LABS: Basophils # 0.1 K/mcL (0.0-0.2); Basophils % 0.6 %; Eosinophils # 0.1 K/mcL (0.0-0.6); Eosinophils % 1.8 %; Hematocrit 20.9 % (37.5-50.1); Hemoglobin 8.2 g/dL (12.9-16.9); Immature Platelets 5.7 % (1.1-6.1); Lymphocytes # 2.4 K/mcL (0.6-4.6); Lymphocytes % 29.8 %; Mean Corpuscular HGB Conc 39.2 g/dL (31.6-35.5); Mean Corpuscular Volume 96.8 fL (83.0-100.0); Mean Platelet Volume 9.9 fL (9.4-12.4); Monocytes # 0.7 K/mcL (0.0-1.3); Monocytes % 8.7 %; Nucleated Red Blood Cells 0.3 /100 WBC (0); Platelet Count 96 K/mcL (140-400); Red Blood Count 2.16 M/mcL (4.19-5.50); Red Cell Distribution Width 13.2 % (11.5-14.5); Segmented Neutrophils % 50.1 %; White Blood Count 7.9 K/mcL (4.3-11.1)
[2019-09-08] MEDS: *HR* Heparin 5,000 UNIT/ML VIAL SQ SCH ×3 (07:41→23:46)
[2019-09-08] MEDS: Potassium Chloride Elixir 20 MEQ/15 ML UDC PO SCH ×2 (08:49→11:47)
[2019-09-08] MEDS: 0.9 % Sodium Chloride 1,000 ML IVC SCH ×2 (11:48→23:49)
[2019-09-08 12:03] LABS: Campylobacter by PCR Not detected (Not detect)
[2019-09-08 12:04] LABS: C.difficile Toxin A/B Gene PCR DETECTED (Not detect)
[2019-09-08 12:08] LABS: Adenovirus F 40/41 PCR Not detected (Not detect); Astrovirus PCR Not detected (Not detect); Cryptosporidium by PCR Not detected (Not detect); Cyclospora cayetanensis PCR Not detected (Not detect); E. coli O157 by PCR Not detected (Not detect); Entamoeba histolytica PCR Not detected (Not detect); Enteroaggregative E.coli(EAEC) Not detected (Not detect); Enteropathogenic E.coli(EPEC) Not detected (Not detect); Enterotoxigenic E.coli (ETEC) Not detected (Not detect); Giardia lamblia PCR Not detected (Not detect); Norovirus GI/GII PCR Not detected (Not detect); Plesiomonas shigelloides PCR Not detected (Not detect); Rotavirus A PCR Not detected (Not detect); Salmonella PCR Not detected (Not detect); Sapovirus PCR Not detected (Not detect); Shig/EnteroinvasiveE coli EIEC Not detected (Not detect); Shigalike tox-prod E coli STEC Not detected (Not detect); Vibrio PCR Not detected (Not detect); Vibrio cholerae PCR Not detected (Not detect); Yersinia enterocolitica PCR Not detected (Not detect)
[2019-09-08] MEDS: Vancomycin Oral Soln 125 MG/2.5 ML UDC PO SCH ×3 (14:30→21:50)
[2019-09-08] MEDS: Thiamine (B-1) 100 MG, Folic Acid 1 MG, MVI, adult with vitamin K 10 ML in 0.9 % Sodi... IVPB SCH (16:38)
[2019-09-08 19:51] LABS: BUN/Creatinine Ratio 16 (6-26); Blood Urea Nitrogen 8 mg/dL (6-20); Calcium 8.5 mg/dL (8.6-10.3); Carbon Dioxide 25 mEq/L (23-29); Chloride 101 mEq/L (98-107); Glucose 130 mg/dL (70-105); Osmolality,Calculated 276 (280-300); Potassium 3.6 mEq/L (3.5-5.1); Sodium 133 mEq/L (136-145); eGFR For African Americans > 60 (> 60); eGFR For Non-African Americans > 60 (> 60)
[2019-09-08] MEDS: Melatonin 3 MG TABLET PO SCH (21:50)
[2019-09-09] MEDS: *HR* Heparin 5,000 UNIT/ML VIAL SQ SCH ×2 (08:07→16:55)
[2019-09-09] MEDS: Vancomycin Oral Soln 125 MG/2.5 ML UDC PO SCH ×4 (08:08→21:43)
[2019-09-09] MEDS ORDERED: 0.9 % Sodium Chloride 1,000 ML IVC SCH (13:49)
[2019-09-09] MEDS: Melatonin 3 MG TABLET PO SCH (21:41)
[2019-09-10] MEDS: *HR* Heparin 5,000 UNIT/ML VIAL SQ SCH ×2 (01:30→10:55)
[2019-09-10 02:38] LABS: BUN/Creatinine Ratio 14 (6-26); Blood Urea Nitrogen 6 mg/dL (6-20); Calcium 7.8 mg/dL (8.6-10.3); Carbon Dioxide 27 mEq/L (23-29); Chloride 100 mEq/L (98-107); Glucose 113 mg/dL (70-105); Osmolality,Calculated 278 (280-300); Potassium 3.4 mEq/L (3.5-5.1); Sodium 135 mEq/L (136-145); eGFR For African Americans > 60 (> 60); eGFR For Non-African Americans > 60 (> 60)
[2019-09-10] MEDS ORDERED: Calcium Gluconate 1gm/50mL 1 GM/50 ML BAG IVPB ONE (10:20)
[2019-09-10] MEDS: Vancomycin Oral Soln 125 MG/2.5 ML UDC PO SCH ×2 (10:56→13:38)
[2019-09-10 13:15] VITALS: BP 124/70
== END 2019-09-10 16:02 | DRG 248 ==
LOC: EMEROOARM 16:38 → ICNU 16:38 → SUATTDRO 20:32 → ICNU 21:15 → 2NNU 09-06 10:28 → 3ANU 09-09 19:12
PROVIDERS: ADMIT Internal Medicine; ATTEND Internal Medicine

== ENCOUNTER 2021-07-17 12:26 | Inpatient (IN) ==
[2021-07-17] MEDS ORDERED: *HR* LORazepam 2 MG/ML VIAL IVP PRN ×2 (15:43)
[2021-07-17] MEDS ORDERED: Thiamine (B-1) 100 MG TABLET PO SCH (15:45)
[2021-07-17] MEDS ORDERED: Thiamine (B-1) 100 MG in 0.9 % Sodium Chloride 50 ML IVPB STA (16:29)
[2021-07-17] MEDS ORDERED: Perflutren Lipid Microsphere 1.3 ML in 0.9 % Sodium Chloride 8.7 ML IVP PRN (16:32)
[2021-07-17 16:33] LABS: Hematocrit 20.8 % (37.5-50.1); Hemoglobin 6.8 g/dL (12.9-16.9); Mean Corpuscular HGB Conc 32.7 g/dL (31.6-35.5); Mean Corpuscular Hemoglobin 25.7 pg (28.0-33.3); Mean Corpuscular Volume 78.5 fL (83.0-100.0); Mean Platelet Volume 8.9 fL (9.4-12.4); Platelet Count 188 K/mcL (140-400); Red Blood Count 2.65 M/mcL (4.19-5.50); Red Cell Distribution Width 25.4 % (11.5-14.5); White Blood Count 7.8 K/mcL (4.3-11.1)
[2021-07-17 16:40] LABS: INR 1.3; Prothrombin Time 14.1 Seconds (9.4-12.1)
[2021-07-17 16:53] LABS: BUN/Creatinine Ratio 32 (6-26); Blood Urea Nitrogen 21 mg/dL (6-20); Calcium 7.8 mg/dL (8.6-10.3); Carbon Dioxide 27 mEq/L (23-29); Chloride 97 mEq/L (98-107); Glucose 148 mg/dL (70-105); Osmolality,Calculated 284 (280-300); Potassium 3.1 mEq/L (3.5-5.1); Sodium 134 mEq/L (136-145); eGFR For African Americans > 60 (> 60); eGFR For Non-African Americans > 60 (> 60)
[2021-07-17] MEDS: Pantoprazole 40 MG VIAL IVP SCH (17:03)
[2021-07-17] MEDS: Folic Acid 1 MG TABLET PO SCH (17:04)
[2021-07-17] MEDS: Nicotine 21 MG PATCH.TD24 TD SCH (17:04)
[2021-07-17] MEDS: Octreotide 400 MCG in 0.9 % Sodium Chloride 100 ML IVC SCH (17:34)
[2021-07-17] MEDS ORDERED: 0.9 % Sodium Chloride 250 ML ONE (18:14)
[2021-07-17 19:42] LABS: Adenovirus Not Detected (Not Detect); Coronavirus 229E Not Detected (Not Detect); Coronavirus HKU1 Not Detected (Not Detect); Coronavirus NL63 Not Detected (Not Detect); Coronavirus OC43 Not Detected (Not Detect); Human Metapneumovirus Not Detected (Not Detect); Human Rhinovirus/Enterovirus Not Detected (Not Detect); SARS-CoV-2 Not Detected (Not Detect)
[2021-07-17 19:43] LABS: Bordetella Pertussis Not Detected (Not Detect); Chlamydophila pneumoniae Not Detected (Not Detect); Influenza A Subtype 2009 H1 Not Detected (Not Detect); Influenza B Not Detected (Not Detect); Mycoplasma pneumoniae Not Detected (Not Detect); Parainfluenza Virus 1 Not Detected (Not Detect); Parainfluenza Virus 2 Not Detected (Not Detect); Parainfluenza Virus 3 Not Detected (Not Detect); Parainfluenza Virus 4 Not Detected (Not Detect); Respiratory Syncytial Virus Not Detected (Not Detect)
[2021-07-18] MEDS ORDERED: Octreotide 400 MCG in 0.9 % Sodium Chloride 100 ML IVC SCH (03:00)
[2021-07-18 04:47] LABS: VBG Ionized Calcium 1.06 mmol/L (1.15-1.35)
[2021-07-18 04:50] LABS: Hemoglobin 7.8 g/dL (12.9-16.9); Mean Corpuscular HGB Conc 32.5 g/dL (31.6-35.5); Mean Corpuscular Hemoglobin 26.3 pg (28.0-33.3); Mean Corpuscular Volume 80.8 fL (83.0-100.0); Mean Platelet Volume 9.3 fL (9.4-12.4); Platelet Count 167 K/mcL (140-400); Red Blood Count 2.97 M/mcL (4.19-5.50); Red Cell Distribution Width 23.6 % (11.5-14.5); White Blood Count 6.8 K/mcL (4.3-11.1)
[2021-07-18 05:09] LABS: Alanine Aminotransferase 20 Units/L (7-52); Alkaline Phosphatase 102 Units/L (34-104); Aspartate Amino Transferase 39 Units/L (13-39); BUN/Creatinine Ratio 25 (6-26); Bilirubin,Direct 0.9 mg/dL (0.0-0.2); Bilirubin,Indirect 1.1 mg/dL (0.0-1.0); Blood Urea Nitrogen 17 mg/dL (6-20); Calcium 8.2 mg/dL (8.6-10.3); Carbon Dioxide 29 mEq/L (23-29); Chloride 100 mEq/L (98-107); Globulin 3.1 g/dL (2.4-3.5); Glucose 127 mg/dL (70-105); Magnesium 1.8 mg/dL (1.6-2.6); Osmolality,Calculated 285 (280-300); Phosphorous 1.7 mg/dL (2.7-4.5); Potassium 3.6 mEq/L (3.5-5.1); Sodium 136 mEq/L (136-145); Total Protein 6.1 g/dL (6.4-8.9); eGFR For African Americans > 60 (> 60); eGFR For Non-African Americans > 60 (> 60)
[2021-07-18] MEDS: Pantoprazole 40 MG VIAL IVP SCH ×2 (05:11→17:34)
[2021-07-18] MEDS: Octreotide 400 MCG in 0.9 % Sodium Chloride 100 ML IVC SCH ×2 (06:07→23:11)
[2021-07-18] MEDS: cefTRIAXone 1,000 MG in Water for inj. (sterile) 10 ML IVP SCH (08:18)
[2021-07-18] MEDS: Nicotine 21 MG PATCH.TD24 TD SCH (08:18)
[2021-07-18] MEDS: Thiamine (B-1) 100 MG TABLET PO SCH (08:19)
[2021-07-18] MEDS: Folic Acid 1 MG TABLET PO SCH (08:19)
[2021-07-18] MEDS: Tiotropium 10 INH DOSE IH SCH (08:56)
[2021-07-18] MEDS ORDERED: SODIUM CHLORIDE/NAHCO3/KCL/PEG 4,000 ML SOLN.RECON PO ONE (17:00)
[2021-07-19] MEDS: *HR* LORazepam 2 MG/ML VIAL IVP PRN ×3 (04:55→21:10)
[2021-07-19] MEDS: Pantoprazole 40 MG VIAL IVP SCH ×2 (04:58→17:48)
[2021-07-19] MEDS: cefTRIAXone 1,000 MG in Water for inj. (sterile) 10 ML IVP SCH (07:56)
[2021-07-19] MEDS: Folic Acid 1 MG TABLET PO SCH (07:56)
[2021-07-19] MEDS: Thiamine (B-1) 100 MG TABLET PO SCH (07:56)
[2021-07-19] MEDS: Nicotine 21 MG PATCH.TD24 TD SCH (07:56)
[2021-07-19] MEDS: Tiotropium 10 INH DOSE IH SCH (10:21)
[2021-07-19 11:57] LABS: Basophils % 0.4 %; Eosinophils # 0.2 K/mcL (0.0-0.6); Eosinophils % 2.3 %; Hematocrit 26.1 % (37.5-50.1); Hemoglobin 8.2 g/dL (12.9-16.9); Immature Granulocytes % 1.2 % (0-4); Lymphocytes # 1.6 K/mcL (0.6-4.6); Lymphocytes % 21.1 %; Mean Corpuscular HGB Conc 31.4 g/dL (31.6-35.5); Mean Corpuscular Hemoglobin 26.4 pg (28.0-33.3); Mean Corpuscular Volume 83.9 fL (83.0-100.0); Mean Platelet Volume 9.5 fL (9.4-12.4); Monocytes # 0.8 K/mcL (0.0-1.3); Monocytes % 10.1 %; Neutrophils # 4.9 K/mcL (1.6-8.9); Nucleated Red Blood Cells 0.8 /100 WBC (0); Platelet Count 180 K/mcL (140-400); Red Blood Count 3.11 M/mcL (4.19-5.50); Red Cell Distribution Width 25.4 % (11.5-14.5); Segmented Neutrophils % 64.9 %; White Blood Count 7.5 K/mcL (4.3-11.1)
[2021-07-19 12:16] LABS: BUN/Creatinine Ratio 18 (6-26); Blood Urea Nitrogen 10 mg/dL (6-20); Calcium 8.3 mg/dL (8.6-10.3); Carbon Dioxide 28 mEq/L (23-29); Chloride 104 mEq/L (98-107); Glucose 117 mg/dL (70-105); Osmolality,Calculated 286 (280-300); Potassium 3.8 mEq/L (3.5-5.1); Sodium 138 mEq/L (136-145); eGFR For African Americans > 60 (> 60); eGFR For Non-African Americans > 60 (> 60)
[2021-07-19 12:45] LABS: Anisocytosis 3+ (Not Present); Hypochromasia Present (Not Present); Platelet Estimate Normal (Normal); Polychromasia 1+ (Not Present)
[2021-07-19] MEDS ORDERED: *HR* FentaNYL (PF) 100 MCG/2 ML VIAL ONE (13:41)
[2021-07-19] MEDS ORDERED: *HR* Midazolam HCl 5 MG/5 ML VIAL IVP ONE ×2 (13:42→13:49)
[2021-07-19] MEDS ORDERED: *HR* FentaNYL (PF) 100 MCG/2 ML VIAL IVP ONE (13:49)
[2021-07-19 16:52] LABS: VBG HCO3 25 mEq/L (21-27); VBG PCO2 38 mmHg (41-51); VBG PH 7.42 pH Units (7.32-7.42); VBG PO2 189 mmHg (25-50)
[2021-07-19] MEDS: Octreotide 400 MCG in 0.9 % Sodium Chloride 100 ML IVC SCH (17:47)
[2021-07-20] MEDS: Pantoprazole 40 MG VIAL IVP SCH ×2 (06:05→17:36)
[2021-07-20] MEDS: Thiamine (B-1) 100 MG TABLET PO SCH (10:59)
[2021-07-20] MEDS: cefTRIAXone 1,000 MG in Water for inj. (sterile) 10 ML IVP SCH (10:59)
[2021-07-20] MEDS: Folic Acid 1 MG TABLET PO SCH (10:59)
[2021-07-20] MEDS: Nicotine 21 MG PATCH.TD24 TD SCH (10:59)
[2021-07-20] MEDS: Tiotropium 10 INH DOSE IH SCH (11:02)
[2021-07-20 16:00] LABS: Hematocrit 25.5 % (37.5-50.1); Mean Corpuscular HGB Conc 31.4 g/dL (31.6-35.5); Mean Corpuscular Hemoglobin 26.6 pg (28.0-33.3); Mean Corpuscular Volume 84.7 fL (83.0-100.0); Mean Platelet Volume 9.1 fL (9.4-12.4); Platelet Count 173 K/mcL (140-400); Red Blood Count 3.01 M/mcL (4.19-5.50); Red Cell Distribution Width 26.7 % (11.5-14.5); White Blood Count 7.2 K/mcL (4.3-11.1)
[2021-07-20 16:44] LABS: BUN/Creatinine Ratio 15 (6-26); Blood Urea Nitrogen 9 mg/dL (6-20); Calcium 8.2 mg/dL (8.6-10.3); Carbon Dioxide 29 mEq/L (23-29); Chloride 105 mEq/L (98-107); Glucose 110 mg/dL (70-105); Magnesium 1.5 mg/dL (1.6-2.6); Osmolality,Calculated 285 (280-300); Phosphorous 2.7 mg/dL (2.7-4.5); Potassium 3.8 mEq/L (3.5-5.1); Sodium 138 mEq/L (136-145); eGFR For African Americans > 60 (> 60); eGFR For Non-African Americans > 60 (> 60)
[2021-07-20] MEDS ORDERED: SODIUM CHLORIDE/NAHCO3/KCL/PEG 4,000 ML SOLN.RECON PO ONE (17:00)
[2021-07-21] MEDS: *HR* LORazepam 2 MG/ML VIAL IVP PRN ×2 (00:09→21:06)
[2021-07-21] MEDS: Pantoprazole 40 MG VIAL IVP SCH ×2 (05:04→16:59)
[2021-07-21] MEDS: Tiotropium 10 INH DOSE IH SCH (07:45)
[2021-07-21] MEDS: Thiamine (B-1) 100 MG TABLET PO SCH (09:44)
[2021-07-21] MEDS: Folic Acid 1 MG TABLET PO SCH (09:44)
[2021-07-21] MEDS: Nicotine 21 MG PATCH.TD24 TD SCH (09:50)
[2021-07-21] MEDS: cefTRIAXone 1,000 MG in Water for inj. (sterile) 10 ML IVP SCH (09:50)
[2021-07-21] MEDS ORDERED: *HR* Midazolam HCl 2 MG/2 ML VIAL ONE (13:12)
[2021-07-21] MEDS ORDERED: *HR* Propofol 200 MG/20 ML VIAL IVP ONE (13:12)
[2021-07-21] MEDS ORDERED: Simethicone 40 MG/0.6 ML MLS PO PRN (13:23)
[2021-07-21] MEDS ORDERED: Lidocaine -MPF 2% 5 ML VIAL ONE (13:59)
[2021-07-21] MEDS ORDERED: 0.9 % Sodium Chloride 250 ML IVC ONE (17:07)
[2021-07-21 17:28] LABS: Basophils % 0.4 %; Eosinophils # 0.1 K/mcL (0.0-0.6); Eosinophils % 1.4 %; Hematocrit 25.3 % (37.5-50.1); Hemoglobin 7.9 g/dL (12.9-16.9); Immature Granulocytes % 0.4 % (0-4); Lymphocytes # 1.4 K/mcL (0.6-4.6); Lymphocytes % 17.7 %; Mean Corpuscular HGB Conc 31.2 g/dL (31.6-35.5); Mean Corpuscular Hemoglobin 26.8 pg (28.0-33.3); Mean Corpuscular Volume 85.8 fL (83.0-100.0); Mean Platelet Volume 9.3 fL (9.4-12.4); Monocytes # 0.7 K/mcL (0.0-1.3); Monocytes % 9.6 %; Neutrophils # 5.4 K/mcL (1.6-8.9); Platelet Count 185 K/mcL (140-400); Red Blood Count 2.95 M/mcL (4.19-5.50); Red Cell Distribution Width 26.5 % (11.5-14.5); Segmented Neutrophils % 70.5 %; White Blood Count 7.7 K/mcL (4.3-11.1)
[2021-07-21 17:47] LABS: BUN/Creatinine Ratio 13 (6-26); Blood Urea Nitrogen 7 mg/dL (6-20); Calcium 7.8 mg/dL (8.6-10.3); Carbon Dioxide 26 mEq/L (23-29); Chloride 104 mEq/L (98-107); Glucose 92 mg/dL (70-105); Magnesium 1.5 mg/dL (1.6-2.6); Osmolality,Calculated 280 (280-300); Potassium 3.8 mEq/L (3.5-5.1); Sodium 136 mEq/L (136-145); eGFR For African Americans > 60 (> 60); eGFR For Non-African Americans > 60 (> 60)
[2021-07-21 17:50] LABS: Anisocytosis 3+ (Not Present); Hypochromasia Present (Not Present); Microcytosis Present (Not Present); Platelet Estimate Normal (Normal)
[2021-07-21 17:51] LABS: Tear Drop Cells 2+ (Not Present)
[2021-07-21] MEDS: 0.9 % Sodium Chloride 1,000 ML IVC SCH (17:55)
[2021-07-21] MEDS ORDERED: *HR* LORazepam 2 MG/ML VIAL IVP ONE (18:12)
[2021-07-22] MEDS: 0.9 % Sodium Chloride 1,000 ML IVC SCH ×2 (04:31→16:10)
[2021-07-22] MEDS: *HR* LORazepam 2 MG/ML VIAL IVP PRN (04:57)
[2021-07-22] MEDS: Pantoprazole 40 MG VIAL IVP SCH (04:58)
[2021-07-22] MEDS: Tiotropium 10 INH DOSE IH SCH (07:30)
[2021-07-22] MEDS: Folic Acid 1 MG TABLET PO SCH (07:56)
[2021-07-22] MEDS: Thiamine (B-1) 100 MG TABLET PO SCH (07:56)
[2021-07-22] MEDS: Nicotine 21 MG PATCH.TD24 TD SCH (07:56)
[2021-07-22] MEDS: cefTRIAXone 1,000 MG in Water for inj. (sterile) 10 ML IVP SCH (07:56)
[2021-07-22 10:53] LABS: Basophils % 0.4 %; Eosinophils # 0.2 K/mcL (0.0-0.6); Eosinophils % 2.5 %; Hemoglobin 8.1 g/dL (12.9-16.9); Immature Granulocytes % 0.3 % (0-4); Lymphocytes # 1.4 K/mcL (0.6-4.6); Lymphocytes % 18.3 %; Mean Corpuscular Hemoglobin 26.3 pg (28.0-33.3); Mean Corpuscular Volume 87.7 fL (83.0-100.0); Mean Platelet Volume 9.6 fL (9.4-12.4); Monocytes # 0.6 K/mcL (0.0-1.3); Monocytes % 8.4 %; Platelet Count 218 K/mcL (140-400); Red Blood Count 3.08 M/mcL (4.19-5.50); Segmented Neutrophils % 70.1 %; White Blood Count 7.6 K/mcL (4.3-11.1)
[2021-07-22 10:55] LABS: Neutrophils # 5.3 K/mcL (1.6-8.9)
[2021-07-22 11:11] LABS: Anisocytosis 3+ (Not Present); Platelet Estimate Normal (Normal); Tear Drop Cells 2+ (Not Present)
[2021-07-22 11:12] LABS: Polychromasia 1+ (Not Present)
[2021-07-22 11:25] LABS: BUN/Creatinine Ratio 13 (6-26); Blood Urea Nitrogen 7 mg/dL (6-20); Calcium 7.7 mg/dL (8.6-10.3); Carbon Dioxide 24 mEq/L (23-29); Chloride 104 mEq/L (98-107); Glucose 93 mg/dL (70-105); Osmolality,Calculated 280 (280-300); Potassium 3.8 mEq/L (3.5-5.1); Sodium 136 mEq/L (136-145); eGFR For African Americans > 60 (> 60); eGFR For Non-African Americans > 60 (> 60)
[2021-07-22 15:59] LABS: Magnesium 1.5 mg/dL (1.6-2.6)
[2021-07-22] MEDS: Magnesium Oxide 400 MG TABLET PO SCH (20:43)
[2021-07-23] MEDS: 0.9 % Sodium Chloride 1,000 ML IVC SCH ×2 (01:11→02:37)
[2021-07-23] MEDS: Magnesium Oxide 400 MG TABLET PO SCH ×2 (09:20→20:55)
[2021-07-23] MEDS: Thiamine (B-1) 100 MG TABLET PO SCH (09:21)
[2021-07-23] MEDS: cefTRIAXone 1,000 MG in Water for inj. (sterile) 10 ML IVP SCH (09:21)
[2021-07-23] MEDS: Nicotine 21 MG PATCH.TD24 TD SCH (09:21)
[2021-07-23] MEDS: Folic Acid 1 MG TABLET PO SCH (09:21)
[2021-07-23 09:49] LABS: Hemoglobin 7.7 g/dL (12.9-16.9); Mean Corpuscular Hemoglobin 27.1 pg (28.0-33.3); Red Blood Count 2.84 M/mcL (4.19-5.50); Red Cell Distribution Width 25.5 % (11.5-14.5)
[2021-07-23 09:51] LABS: Eosinophils # 0.2 K/mcL (0.0-0.6); Hematocrit 24.8 % (37.5-50.1); Immature Platelets 3.8 % (1.1-6.1); Lymphocytes # 1.4 K/mcL (0.6-4.6); Mean Corpuscular Volume 87.3 fL (83.0-100.0); Mean Platelet Volume 9.7 fL (9.4-12.4); Platelet Count 237 K/mcL (140-400); White Blood Count 7.7 K/mcL (4.3-11.1)
[2021-07-23 10:08] LABS: BUN/Creatinine Ratio 12 (6-26); Blood Urea Nitrogen 6 mg/dL (6-20); Carbon Dioxide 23 mEq/L (23-29); Chloride 105 mEq/L (98-107); Glucose 95 mg/dL (70-105); Magnesium 1.5 mg/dL (1.6-2.6); Monocytes # 0.2 K/mcL (0.0-1.3); Osmolality,Calculated 279 (280-300); Potassium 3.4 mEq/L (3.5-5.1); Sodium 136 mEq/L (136-145); eGFR For African Americans > 60 (> 60); eGFR For Non-African Americans > 60 (> 60)
[2021-07-23 10:09] LABS: Platelet Estimate Normal (Normal)
[2021-07-23] MEDS: Tiotropium 10 INH DOSE IH SCH (10:10)
[2021-07-24] MEDS: 0.9 % Sodium Chloride 1,000 ML IVC SCH ×4 (00:46→18:39)
[2021-07-24] MEDS: *HR* LORazepam 2 MG/ML VIAL IVP PRN ×2 (00:46→22:20)
[2021-07-24] MEDS: Tiotropium 10 INH DOSE IH SCH (10:53)
[2021-07-24] MEDS: Magnesium Oxide 400 MG TABLET PO SCH ×2 (12:12→22:20)
[2021-07-24] MEDS: Thiamine (B-1) 100 MG TABLET PO SCH (12:13)
[2021-07-24] MEDS: Folic Acid 1 MG TABLET PO SCH (12:13)
[2021-07-24] MEDS: Nicotine 21 MG PATCH.TD24 TD SCH (12:13)
[2021-07-24] MEDS: cefTRIAXone 1,000 MG in Water for inj. (sterile) 10 ML IVP SCH (12:48)
[2021-07-24] MEDS ORDERED: Haloperidol Lactate 5 MG/ML VIAL IM PRN ×2 (13:36→13:40)
[2021-07-24] MEDS ORDERED: Acetaminophen 650 MG RECTAL SUPP RC PRN (17:42)
[2021-07-24] MEDS: Acetaminophen 325 MG TABLET PO PRN (18:36)
[2021-07-24 19:36] LABS: Adenovirus F 40/41 PCR Not detected (Not detect); Astrovirus PCR Not detected (Not detect); C.difficile Toxin A/B Gene PCR Not detected (Not detect); Campylobacter by PCR Not detected (Not detect); Cryptosporidium by PCR Not detected (Not detect); Cyclospora cayetanensis PCR Not detected (Not detect); E. coli O157 by PCR Not detected (Not detect); Entamoeba histolytica PCR Not detected (Not detect); Enteroaggregative E.coli(EAEC) Not detected (Not detect); Enteropathogenic E.coli(EPEC) Not detected (Not detect); Enterotoxigenic E.coli (ETEC) Not detected (Not detect); Giardia lamblia PCR Not detected (Not detect); Norovirus GI/GII PCR Not detected (Not detect); Plesiomonas shigelloides PCR Not detected (Not detect); Rotavirus A PCR Not detected (Not detect); Salmonella PCR Not detected (Not detect); Sapovirus PCR Not detected (Not detect); Shig/EnteroinvasiveE coli EIEC Not detected (Not detect); Shigalike tox-prod E coli STEC Not detected (Not detect); Vibrio PCR Not detected (Not detect); Vibrio cholerae PCR Not detected (Not detect); Yersinia enterocolitica PCR Not detected (Not detect)
[2021-07-24 20:32] LABS: Basophils # 0.1 K/mcL (0.0-0.2); Basophils % 0.5 %; Eosinophils # 0.1 K/mcL (0.0-0.6); Eosinophils % 0.6 %; Hematocrit 23.2 % (37.5-50.1); Hemoglobin 7.1 g/dL (12.9-16.9); Immature Granulocytes % 0.6 % (0-4); Lymphocytes # 1.4 K/mcL (0.6-4.6); Mean Corpuscular HGB Conc 30.6 g/dL (31.6-35.5); Mean Corpuscular Hemoglobin 26.9 pg (28.0-33.3); Mean Corpuscular Volume 87.9 fL (83.0-100.0); Mean Platelet Volume 9.9 fL (9.4-12.4); Monocytes % 10.5 %; Neutrophils # 6.8 K/mcL (1.6-8.9); Platelet Count 258 K/mcL (140-400); Red Blood Count 2.64 M/mcL (4.19-5.50); Red Cell Distribution Width 24.1 % (11.5-14.5); Segmented Neutrophils % 72.8 %; White Blood Count 9.4 K/mcL (4.3-11.1)
[2021-07-24 20:51] LABS: BUN/Creatinine Ratio 14 (6-26); Blood Urea Nitrogen 7 mg/dL (6-20); Calcium 7.5 mg/dL (8.6-10.3); Carbon Dioxide 20 mEq/L (23-29); Chloride 106 mEq/L (98-107); Glucose 107 mg/dL (70-105); Magnesium 1.4 mg/dL (1.6-2.6); Osmolality,Calculated 276 (280-300); Potassium 3.4 mEq/L (3.5-5.1); Sodium 134 mEq/L (136-145); eGFR For African Americans > 60 (> 60); eGFR For Non-African Americans > 60 (> 60)
[2021-07-24 21:12] LABS: Anisocytosis 3+ (Not Present); Hypochromasia Present (Not Present); Platelet Estimate Normal (Normal); Polychromasia 1+ (Not Present); Tear Drop Cells 1+ (Not Present)
[2021-07-25] MEDS: Piperacillin/Tazobactam 3.375 GM in 0.9 % Sodium Chloride Mini Bag 100 ML IVPB SCH ×4 (00:35→22:51)
[2021-07-25] MEDS: Tiotropium 10 INH DOSE IH SCH (08:19)
[2021-07-25] MEDS: Folic Acid 1 MG TABLET PO SCH (09:08)
[2021-07-25] MEDS: Magnesium Oxide 400 MG TABLET PO SCH ×2 (09:08→21:41)
[2021-07-25] MEDS: Thiamine (B-1) 100 MG TABLET PO SCH (09:08)
[2021-07-25] MEDS: Nicotine 21 MG PATCH.TD24 TD SCH (09:09)
[2021-07-25] MEDS: 0.9 % Sodium Chloride 1,000 ML IVC SCH ×2 (09:09→23:54)
[2021-07-25 11:29] LABS: Hematocrit 26.5 % (37.5-50.1); Hemoglobin 8.3 g/dL (12.9-16.9); Mean Corpuscular HGB Conc 31.3 g/dL (31.6-35.5); Mean Corpuscular Hemoglobin 27.8 pg (28.0-33.3); Mean Corpuscular Volume 88.6 fL (83.0-100.0); Mean Platelet Volume 9.9 fL (9.4-12.4); Platelet Count 289 K/mcL (140-400); Red Blood Count 2.99 M/mcL (4.19-5.50); Red Cell Distribution Width 23.6 % (11.5-14.5); White Blood Count 10.4 K/mcL (4.3-11.1)
[2021-07-25 11:45] LABS: Adenovirus Not Detected (Not Detect); Coronavirus 229E Not Detected (Not Detect); Coronavirus HKU1 Not Detected (Not Detect); Coronavirus NL63 Not Detected (Not Detect); Coronavirus OC43 Not Detected (Not Detect); Human Metapneumovirus Not Detected (Not Detect); Human Rhinovirus/Enterovirus Not Detected (Not Detect); Influenza A Subtype 2009 H1 Not Detected (Not Detect); SARS-CoV-2 Not Detected (Not Detect)
[2021-07-25 11:46] LABS: Bordetella Pertussis Not Detected (Not Detect); Chlamydophila pneumoniae Not Detected (Not Detect); Influenza B Not Detected (Not Detect); Mycoplasma pneumoniae Not Detected (Not Detect); Parainfluenza Virus 1 Not Detected (Not Detect); Parainfluenza Virus 2 Not Detected (Not Detect); Parainfluenza Virus 3 Not Detected (Not Detect); Parainfluenza Virus 4 Not Detected (Not Detect); Respiratory Syncytial Virus Not Detected (Not Detect)
[2021-07-25 12:14] LABS: BUN/Creatinine Ratio 13 (6-26); Blood Urea Nitrogen 7 mg/dL (6-20); Calcium 7.8 mg/dL (8.6-10.3); Carbon Dioxide 21 mEq/L (23-29); Chloride 108 mEq/L (98-107); Glucose 106 mg/dL (70-105); Osmolality,Calculated 282 (280-300); Potassium 3.5 mEq/L (3.5-5.1); Sodium 137 mEq/L (136-145); eGFR For African Americans > 60 (> 60); eGFR For Non-African Americans > 60 (> 60)
[2021-07-25 13:16] LABS: Basophils # 0.2 K/mcL (0.0-0.2); Lymphocytes # 0.5 K/mcL (0.6-4.6); Monocytes # 0.7 K/mcL (0.0-1.3); Neutrophils # 8.9 K/mcL (1.6-8.9)
[2021-07-25 13:17] LABS: Anisocytosis 2+ (Not Present); Platelet Estimate Normal (Normal)
[2021-07-25 13:19] LABS: Hypochromasia Present (Not Present); Tear Drop Cells 1+ (Not Present)
[2021-07-25] MEDS: Gabapentin 300 MG CAPSULE PO SCH ×2 (14:42→21:42)
[2021-07-25] MEDS: Acetaminophen 325 MG TABLET PO PRN (21:41)
[2021-07-26 03:18] LABS: Hematocrit 21.8 % (37.5-50.1); Mean Corpuscular HGB Conc 29.8 g/dL (31.6-35.5); Mean Corpuscular Hemoglobin 26.6 pg (28.0-33.3); Mean Corpuscular Volume 89.3 fL (83.0-100.0); Mean Platelet Volume 10.4 fL (9.4-12.4); Platelet Count 259 K/mcL (140-400); Red Blood Count 2.44 M/mcL (4.19-5.50); Red Cell Distribution Width 23.9 % (11.5-14.5); White Blood Count 8.3 K/mcL (4.3-11.1)
[2021-07-26 03:25] LABS: Hemoglobin 6.5 g/dL (12.9-16.9)
[2021-07-26 03:39] LABS: BUN/Creatinine Ratio 15 (6-26); Blood Urea Nitrogen 9 mg/dL (6-20); Carbon Dioxide 21 mEq/L (23-29); Chloride 110 mEq/L (98-107); Glucose 104 mg/dL (70-105); Osmolality,Calculated 283 (280-300); Potassium 3.3 mEq/L (3.5-5.1); Sodium 137 mEq/L (136-145); eGFR For African Americans > 60 (> 60); eGFR For Non-African Americans > 60 (> 60)
[2021-07-26 03:41] LABS: Magnesium 1.6 mg/dL (1.6-2.6); Phosphorous 2.8 mg/dL (2.7-4.5)
[2021-07-26 04:05] LABS: Folate 8.3 ng/mL (3.0-16.0)
[2021-07-26] MEDS ORDERED: Iron Sucrose Complex 400 MG in 0.9 % Sodium Chloride 250 ML IVPB ONE (07:40)
[2021-07-26] MEDS: Tiotropium 10 INH DOSE IH SCH (07:53)
[2021-07-26] MEDS ORDERED: 0.9 % Sodium Chloride 250 ML ONE (10:37)
[2021-07-26] MEDS: Thiamine (B-1) 100 MG TABLET PO SCH (10:56)
[2021-07-26] MEDS: Furosemide 20 MG TABLET PO SCH (10:56)
[2021-07-26] MEDS: Folic Acid 1 MG TABLET PO SCH (10:56)
[2021-07-26] MEDS: Gabapentin 300 MG CAPSULE PO SCH ×3 (10:56→19:59)
[2021-07-26] MEDS: Magnesium Oxide 400 MG TABLET PO SCH ×2 (10:56→19:59)
[2021-07-26] MEDS: Nicotine 21 MG PATCH.TD24 TD SCH (10:57)
[2021-07-26] MEDS: Piperacillin/Tazobactam 3.375 GM in 0.9 % Sodium Chloride Mini Bag 100 ML IVPB SCH ×2 (18:32→18:37)
[2021-07-26] MEDS ORDERED: Furosemide 20 MG/2 ML VIAL IVP ONE (19:40)
[2021-07-26] MEDS ORDERED: methylPREDNISolone 125 MG/2 ML VIAL IVP ONE (19:52)
[2021-07-26] MEDS: Budesonide/Formoterol 160/4.5 1 PUFF INH IH SCH (20:04)
[2021-07-26 20:18] LABS: ABG Base Excess -6 mEq/L (-2 to 3); ABG HCO3 18 mEq/L (21-27); ABG Oxygen Saturation 87 % (95-98); ABG PCO2 28 mmHg (35-45); ABG PH 7.41 pH Units (7.32-7.45); ABG PO2 52 mmHg (85-104); ABG TCO2 19 mEq/L (20-26)
[2021-07-26 20:44] LABS: Hematocrit 27.2 % (37.5-50.1)
[2021-07-26 20:45] LABS: Hemoglobin 8.3 g/dL (12.9-16.9)
[2021-07-26] MEDS: 0.9 % Sodium Chloride 1,000 ML IVC SCH ×2 (22:04→22:05)
[2021-07-27 03:09] LABS: Eosinophils % 0.1 %; Lymphocytes % 7.8 %; Red Cell Distribution Width 22.7 % (11.5-14.5); Segmented Neutrophils % 87.7 %
[2021-07-27 03:11] LABS: Basophils % 0.1 %; Hematocrit 25.9 % (37.5-50.1); Immature Granulocytes % 0.7 % (0-4); Lymphocytes # 0.6 K/mcL (0.6-4.6); Mean Corpuscular HGB Conc 30.9 g/dL (31.6-35.5); Mean Corpuscular Hemoglobin 26.9 pg (28.0-33.3); Mean Corpuscular Volume 87.2 fL (83.0-100.0); Mean Platelet Volume 10.5 fL (9.4-12.4); Monocytes # 0.3 K/mcL (0.0-1.3); Monocytes % 3.6 %; Neutrophils # 6.3 K/mcL (1.6-8.9); Platelet Count 254 K/mcL (140-400); Red Blood Count 2.97 M/mcL (4.19-5.50); White Blood Count 7.2 K/mcL (4.3-11.1)
[2021-07-27] MEDS: Piperacillin/Tazobactam 3.375 GM in 0.9 % Sodium Chloride Mini Bag 100 ML IVPB SCH ×3 (03:27→20:47)
[2021-07-27 03:36] LABS: Alanine Aminotransferase 11 Units/L (7-52); Albumin 2.3 g/dL (3.5-5.7); Albumin/Globulin Ratio 0.6 (1.1-2.2); Alkaline Phosphatase 81 Units/L (34-104); Aspartate Amino Transferase 19 Units/L (13-39); BUN/Creatinine Ratio 14 (6-26); Bilirubin,Total 1.3 mg/dL (0.3-1.0); Blood Urea Nitrogen 8 mg/dL (6-20); Calcium 7.4 mg/dL (8.6-10.3); Carbon Dioxide 20 mEq/L (23-29); Chloride 107 mEq/L (98-107); Globulin 3.6 g/dL (2.4-3.5); Glucose 170 mg/dL (70-105); Osmolality,Calculated 282 (280-300); Potassium 3.9 mEq/L (3.5-5.1); Sodium 135 mEq/L (136-145); Total Protein 5.9 g/dL (6.4-8.9); eGFR For African Americans > 60 (> 60); eGFR For Non-African Americans > 60 (> 60)
[2021-07-27] MEDS: Thiamine (B-1) 100 MG TABLET PO SCH (08:38)
[2021-07-27] MEDS: Magnesium Oxide 400 MG TABLET PO SCH ×2 (08:38→20:48)
[2021-07-27] MEDS: Folic Acid 1 MG TABLET PO SCH (08:39)
[2021-07-27] MEDS: Gabapentin 300 MG CAPSULE PO SCH ×3 (08:40→20:48)
[2021-07-27] MEDS: Furosemide 20 MG TABLET PO SCH (08:40)
[2021-07-27] MEDS: Nicotine 21 MG PATCH.TD24 TD SCH (08:51)
[2021-07-27] MEDS: Budesonide/Formoterol 160/4.5 1 PUFF INH IH SCH ×2 (10:18→22:21)
[2021-07-27] MEDS: Tiotropium 10 INH DOSE IH SCH (10:19)
[2021-07-27 14:01] LABS: Adenovirus Not Detected (Not Detect); Bordetella Pertussis Not Detected (Not Detect); Chlamydophila pneumoniae Not Detected (Not Detect); Coronavirus 229E Not Detected (Not Detect); Coronavirus HKU1 Not Detected (Not Detect); Coronavirus NL63 Not Detected (Not Detect); Coronavirus OC43 Not Detected (Not Detect); Human Metapneumovirus Not Detected (Not Detect); Human Rhinovirus/Enterovirus Not Detected (Not Detect); Influenza A Subtype 2009 H1 Not Detected (Not Detect); Influenza B Not Detected (Not Detect); Mycoplasma pneumoniae Not Detected (Not Detect); Parainfluenza Virus 1 Not Detected (Not Detect); Parainfluenza Virus 2 Not Detected (Not Detect); Parainfluenza Virus 3 Not Detected (Not Detect); Parainfluenza Virus 4 Not Detected (Not Detect); Respiratory Syncytial Virus Not Detected (Not Detect); SARS-CoV-2 Not Detected (Not Detect)
[2021-07-27] MEDS ORDERED: Furosemide 20 MG TABLET PO SCH (17:00)
[2021-07-27] MEDS: Acetaminophen 325 MG TABLET PO PRN (20:47)
[2021-07-27] MEDS: QUEtiapine Fumarate 25 MG TABLET PO SCH (20:48)
[2021-07-27] MEDS ORDERED: *HR* LORazepam 0.5 MG TABLET PO ONE (21:38)
[2021-07-27 21:47] LABS: VBG HCO3 21 mEq/L (21-27); VBG PCO2 33 mmHg (41-51); VBG PH 7.41 pH Units (7.32-7.42); VBG PO2 136 mmHg (25-50)
[2021-07-27] MEDS: MethylPREDNISolone 40 MG/ML VIAL IVP SCH (22:33)
[2021-07-27] MEDS: Furosemide 20 MG/2 ML VIAL IVP ONE (22:33)
[2021-07-28] MEDS: Doxycycline 100 MG in 0.9 % Sodium Chloride Mini Bag 100 ML IVPB SCH ×2 (01:41→10:16)
[2021-07-28] MEDS: Furosemide 20 MG/2 ML VIAL IVP ONE (02:10)
[2021-07-28] MEDS: Piperacillin/Tazobactam 3.375 GM in 0.9 % Sodium Chloride Mini Bag 100 ML IVPB SCH ×3 (03:56→20:54)
[2021-07-28 04:30] LABS: INR 1.3
[2021-07-28 05:16] LABS: BUN/Creatinine Ratio 14 (6-26); Blood Urea Nitrogen 8 mg/dL (6-20); Calcium 7.9 mg/dL (8.6-10.3); Carbon Dioxide 22 mEq/L (23-29); Chloride 106 mEq/L (98-107); Glucose 124 mg/dL (70-105); Lactate Dehydrogenase 337 Units/L (140-271); Magnesium 1.6 mg/dL (1.6-2.6); Osmolality,Calculated 282 (280-300); Sodium 136 mEq/L (136-145); eGFR For African Americans > 60 (> 60); eGFR For Non-African Americans > 60 (> 60)
[2021-07-28 05:40] LABS: Ferritin 1112 ng/mL (20-250)
[2021-07-28 05:53] LABS: C-Reactive Protein 122 mg/L (Less than 10)
[2021-07-28] MEDS: MethylPREDNISolone 40 MG/ML VIAL IVP SCH ×3 (06:13→20:59)
[2021-07-28] MEDS: Budesonide/Formoterol 160/4.5 1 PUFF INH IH SCH ×2 (09:01→20:10)
[2021-07-28] MEDS: Tiotropium 10 INH DOSE IH SCH (09:02)
[2021-07-28] MEDS: Gabapentin 300 MG CAPSULE PO SCH ×3 (10:14→21:00)
[2021-07-28] MEDS: Folic Acid 1 MG TABLET PO SCH (10:14)
[2021-07-28] MEDS: Magnesium Oxide 400 MG TABLET PO SCH ×2 (10:15→21:00)
[2021-07-28] MEDS: Thiamine (B-1) 100 MG TABLET PO SCH (10:15)
[2021-07-28] MEDS: Furosemide 20 MG/2 ML VIAL IVP SCH ×2 (10:15→21:00)
[2021-07-28] MEDS: Nicotine 21 MG PATCH.TD24 TD SCH (10:17)
[2021-07-28] MEDS ORDERED: Furosemide 20 MG/2 ML VIAL IVP ONE (16:34)
[2021-07-28] MEDS: QUEtiapine Fumarate 25 MG TABLET PO SCH (21:00)
[2021-07-28] MEDS ORDERED: MethylPREDNISolone 40 MG/ML VIAL IVP SCH ×3 (21:39→22:18)
[2021-07-29] MEDS: Doxycycline 100 MG in 0.9 % Sodium Chloride Mini Bag 100 ML IVPB SCH ×3 (00:22→20:51)
[2021-07-29] MEDS: Piperacillin/Tazobactam 3.375 GM in 0.9 % Sodium Chloride Mini Bag 100 ML IVPB SCH ×3 (02:30→15:07)
[2021-07-29 05:23] LABS: Hematocrit 25.2 % (37.5-50.1); Hemoglobin 7.8 g/dL (12.9-16.9); Mean Corpuscular Hemoglobin 26.9 pg (28.0-33.3); Mean Corpuscular Volume 86.9 fL (83.0-100.0); Mean Platelet Volume 10.5 fL (9.4-12.4); Platelet Count 299 K/mcL (140-400); Red Cell Distribution Width 21.8 % (11.5-14.5); White Blood Count 8.6 K/mcL (4.3-11.1)
[2021-07-29] MEDS: MethylPREDNISolone 40 MG/ML VIAL IVP SCH ×3 (05:25→20:51)
[2021-07-29 05:26] LABS: BUN/Creatinine Ratio 20 (6-26); Blood Urea Nitrogen 10 mg/dL (6-20); C-Reactive Protein 131 mg/L (Less than 10); Calcium 7.8 mg/dL (8.6-10.3); Carbon Dioxide 29 mEq/L (23-29); Chloride 101 mEq/L (98-107); Glucose 132 mg/dL (70-105); Lactate Dehydrogenase 331 Units/L (140-271); Osmolality,Calculated 285 (280-300); Potassium 3.5 mEq/L (3.5-5.1); Sodium 137 mEq/L (136-145); eGFR For African Americans > 60 (> 60); eGFR For Non-African Americans > 60 (> 60)
[2021-07-29 05:36] LABS: INR 1.4; Prothrombin Time 15.1 Seconds (9.4-12.1)
[2021-07-29 05:43] LABS: Ferritin 1025 ng/mL (20-250)
[2021-07-29] MEDS: Nicotine 21 MG PATCH.TD24 TD SCH (08:03)
[2021-07-29] MEDS: Furosemide 20 MG/2 ML VIAL IVP SCH ×2 (08:03→20:51)
[2021-07-29] MEDS: Magnesium Oxide 400 MG TABLET PO SCH ×2 (10:20→20:50)
[2021-07-29] MEDS: Gabapentin 300 MG CAPSULE PO SCH ×3 (10:20→20:50)
[2021-07-29] MEDS: Folic Acid 1 MG TABLET PO SCH (10:20)
[2021-07-29] MEDS: Thiamine (B-1) 100 MG TABLET PO SCH (10:20)
[2021-07-29] MEDS: Budesonide/Formoterol 160/4.5 1 PUFF INH IH SCH ×2 (10:41→22:41)
[2021-07-29] MEDS: Tiotropium 10 INH DOSE IH SCH ×2 (10:42→11:35)
[2021-07-29] MEDS: QUEtiapine Fumarate 25 MG TABLET PO SCH (20:50)
[2021-07-30] MEDS: Piperacillin/Tazobactam 3.375 GM in 0.9 % Sodium Chloride Mini Bag 100 ML IVPB SCH ×3 (02:00→19:00)
[2021-07-30 04:09] LABS: Hematocrit 25.2 % (37.5-50.1); Hemoglobin 7.8 g/dL (12.9-16.9); Mean Corpuscular Hemoglobin 26.6 pg (28.0-33.3); Platelet Count 307 K/mcL (140-400); Red Blood Count 2.93 M/mcL (4.19-5.50); Red Cell Distribution Width 21.5 % (11.5-14.5); White Blood Count 8.6 K/mcL (4.3-11.1)
[2021-07-30 05:25] LABS: BUN/Creatinine Ratio 26 (6-26); Blood Urea Nitrogen 14 mg/dL (6-20); C-Reactive Protein 66 mg/L (Less than 10); Calcium 7.6 mg/dL (8.6-10.3); Carbon Dioxide 27 mEq/L (23-29); Chloride 101 mEq/L (98-107); Glucose 143 mg/dL (70-105); Osmolality,Calculated 289 (280-300); Potassium 3.4 mEq/L (3.5-5.1); Sodium 138 mEq/L (136-145); eGFR For African Americans > 60 (> 60); eGFR For Non-African Americans > 60 (> 60)
[2021-07-30 05:36] LABS: Ferritin 1140 ng/mL (20-250)
[2021-07-30] MEDS: MethylPREDNISolone 40 MG/ML VIAL IVP SCH (05:39)
[2021-07-30] MEDS: Magnesium Oxide 400 MG TABLET PO SCH ×2 (08:13→20:46)
[2021-07-30] MEDS: Gabapentin 300 MG CAPSULE PO SCH ×3 (08:14→20:45)
[2021-07-30] MEDS: Folic Acid 1 MG TABLET PO SCH (08:14)
[2021-07-30] MEDS: Thiamine (B-1) 100 MG TABLET PO SCH (08:14)
[2021-07-30] MEDS: Furosemide 20 MG/2 ML VIAL IVP SCH ×2 (08:15→20:43)
[2021-07-30] MEDS: Nicotine 21 MG PATCH.TD24 TD SCH (08:15)
[2021-07-30] MEDS: Tiotropium 10 INH DOSE IH SCH (11:12)
[2021-07-30] MEDS: Budesonide/Formoterol 160/4.5 1 PUFF INH IH SCH ×2 (11:12→20:35)
[2021-07-30] MEDS: Doxycycline 100 MG in 0.9 % Sodium Chloride Mini Bag 100 ML IVPB SCH (11:21)
[2021-07-30] MEDS ORDERED: Furosemide 40 MG/4 ML VIAL IVP ONE ×2 (11:52→14:00)
[2021-07-30] MEDS: QUEtiapine Fumarate 25 MG TABLET PO SCH (20:43)
[2021-07-31] MEDS: Doxycycline 100 MG in 0.9 % Sodium Chloride Mini Bag 100 ML IVPB SCH ×3 (02:15→22:37)
[2021-07-31] MEDS: Piperacillin/Tazobactam 3.375 GM in 0.9 % Sodium Chloride Mini Bag 100 ML IVPB SCH ×3 (03:36→18:11)
[2021-07-31 05:58] LABS: Hematocrit 27.3 % (37.5-50.1); Hemoglobin 8.5 g/dL (12.9-16.9); Mean Corpuscular HGB Conc 31.1 g/dL (31.6-35.5); Mean Corpuscular Hemoglobin 27.1 pg (28.0-33.3); Mean Corpuscular Volume 86.9 fL (83.0-100.0); Mean Platelet Volume 9.7 fL (9.4-12.4); Platelet Count 345 K/mcL (140-400); Red Blood Count 3.14 M/mcL (4.19-5.50); Red Cell Distribution Width 21.3 % (11.5-14.5); White Blood Count 8.1 K/mcL (4.3-11.1)
[2021-07-31 06:17] LABS: BUN/Creatinine Ratio 24 (6-26); Blood Urea Nitrogen 14 mg/dL (6-20); Calcium 8.1 mg/dL (8.6-10.3); Carbon Dioxide 34 mEq/L (23-29); Chloride 97 mEq/L (98-107); Glucose 107 mg/dL (70-105); Osmolality,Calculated 285 (280-300); Potassium 3.2 mEq/L (3.5-5.1); Sodium 137 mEq/L (136-145); eGFR For African Americans > 60 (> 60); eGFR For Non-African Americans > 60 (> 60)
[2021-07-31] MEDS: Gabapentin 300 MG CAPSULE PO SCH ×3 (08:09→22:37)
[2021-07-31] MEDS: Magnesium Oxide 400 MG TABLET PO SCH ×2 (08:09→22:36)
[2021-07-31] MEDS: Folic Acid 1 MG TABLET PO SCH (08:10)
[2021-07-31] MEDS: Nicotine 21 MG PATCH.TD24 TD SCH (08:10)
[2021-07-31] MEDS: Dexamethasone Sodium Phos/PF 10 MG/ML VIAL IVP SCH (08:10)
[2021-07-31] MEDS: Thiamine (B-1) 100 MG TABLET PO SCH (08:10)
[2021-07-31] MEDS: Furosemide 20 MG/2 ML VIAL IVP SCH ×2 (08:14→22:36)
[2021-07-31] MEDS: Budesonide/Formoterol 160/4.5 1 PUFF INH IH SCH ×2 (10:33→20:47)
[2021-07-31] MEDS: Tiotropium 10 INH DOSE IH SCH (10:34)
[2021-07-31 12:17] LABS: ANA IgG by ELISA NONE DETECTED (None Detected)
[2021-07-31] MEDS: QUEtiapine Fumarate 25 MG TABLET PO SCH (22:37)
[2021-08-01] MEDS: Piperacillin/Tazobactam 3.375 GM in 0.9 % Sodium Chloride Mini Bag 100 ML IVPB SCH ×3 (03:11→20:39)
[2021-08-01 03:31] LABS: Hematocrit 28.5 % (37.5-50.1); Hemoglobin 8.7 g/dL (12.9-16.9); Mean Corpuscular HGB Conc 30.5 g/dL (31.6-35.5); Mean Corpuscular Hemoglobin 26.6 pg (28.0-33.3); Mean Corpuscular Volume 87.2 fL (83.0-100.0); Mean Platelet Volume 9.7 fL (9.4-12.4); Platelet Count 356 K/mcL (140-400); Red Blood Count 3.27 M/mcL (4.19-5.50); White Blood Count 11.6 K/mcL (4.3-11.1)
[2021-08-01 03:51] LABS: BUN/Creatinine Ratio 28 (6-26); Blood Urea Nitrogen 18 mg/dL (6-20); C-Reactive Protein 49 mg/L (Less than 10); Calcium 8.2 mg/dL (8.6-10.3); Carbon Dioxide 32 mEq/L (23-29); Chloride 97 mEq/L (98-107); Glucose 157 mg/dL (70-105); Lactate Dehydrogenase 254 Units/L (140-271); Magnesium 1.5 mg/dL (1.6-2.6); Osmolality,Calculated 291 (280-300); Potassium 3.4 mEq/L (3.5-5.1); Sodium 138 mEq/L (136-145); eGFR For African Americans > 60 (> 60); eGFR For Non-African Americans > 60 (> 60)
[2021-08-01 07:25] LABS: Mycoplasma pneumoniae IgG 0.35 U/L (<=0.09)
[2021-08-01] MEDS: Tiotropium 10 INH DOSE IH SCH (07:46)
[2021-08-01] MEDS: Budesonide/Formoterol 160/4.5 1 PUFF INH IH SCH ×2 (07:47→20:20)
[2021-08-01] MEDS: Folic Acid 1 MG TABLET PO SCH (08:46)
[2021-08-01] MEDS: Thiamine (B-1) 100 MG TABLET PO SCH (08:46)
[2021-08-01] MEDS: Magnesium Oxide 400 MG TABLET PO SCH ×2 (08:46→20:39)
[2021-08-01] MEDS: Gabapentin 300 MG CAPSULE PO SCH ×3 (08:46→20:39)
[2021-08-01] MEDS: Dexamethasone Sodium Phos/PF 10 MG/ML VIAL IVP SCH (08:47)
[2021-08-01] MEDS: Furosemide 20 MG/2 ML VIAL IVP SCH ×2 (08:47→20:40)
[2021-08-01] MEDS: Nicotine 21 MG PATCH.TD24 TD SCH (09:06)
[2021-08-01] MEDS: Doxycycline 100 MG in 0.9 % Sodium Chloride Mini Bag 100 ML IVPB SCH ×2 (12:01→23:26)
[2021-08-01 17:04] LABS: ANCA IFA Titer <1:20 (<1:20)
[2021-08-01] MEDS: QUEtiapine Fumarate 25 MG TABLET PO SCH (20:39)
[2021-08-02] MEDS: Piperacillin/Tazobactam 3.375 GM in 0.9 % Sodium Chloride Mini Bag 100 ML IVPB SCH ×3 (03:37→19:49)
[2021-08-02 04:15] LABS: Hematocrit 30.2 % (37.5-50.1); Hemoglobin 9.1 g/dL (12.9-16.9); Mean Corpuscular HGB Conc 30.1 g/dL (31.6-35.5); Mean Corpuscular Hemoglobin 26.5 pg (28.0-33.3); Mean Corpuscular Volume 87.8 fL (83.0-100.0); Mean Platelet Volume 10.2 fL (9.4-12.4); Platelet Count 402 K/mcL (140-400); Red Blood Count 3.44 M/mcL (4.19-5.50); White Blood Count 13.7 K/mcL (4.3-11.1)
[2021-08-02 04:29] LABS: BUN/Creatinine Ratio 31 (6-26); Blood Urea Nitrogen 17 mg/dL (6-20); Calcium 8.3 mg/dL (8.6-10.3); Carbon Dioxide 33 mEq/L (23-29); Chloride 98 mEq/L (98-107); Glucose 128 mg/dL (70-105); Osmolality,Calculated 287 (280-300); Potassium 3.6 mEq/L (3.5-5.1); Sodium 137 mEq/L (136-145); eGFR For African Americans > 60 (> 60); eGFR For Non-African Americans > 60 (> 60)
[2021-08-02] MEDS: Dexamethasone Sodium Phos/PF 10 MG/ML VIAL IVP SCH (07:37)
[2021-08-02] MEDS: Furosemide 20 MG/2 ML VIAL IVP SCH ×2 (07:37→20:25)
[2021-08-02] MEDS: Folic Acid 1 MG TABLET PO SCH (07:38)
[2021-08-02] MEDS: Thiamine (B-1) 100 MG TABLET PO SCH (07:38)
[2021-08-02] MEDS: Gabapentin 300 MG CAPSULE PO SCH ×3 (07:38→20:26)
[2021-08-02] MEDS: Magnesium Oxide 400 MG TABLET PO SCH ×2 (07:39→20:25)
[2021-08-02] MEDS: Nicotine 21 MG PATCH.TD24 TD SCH (07:40)
[2021-08-02] MEDS: Budesonide/Formoterol 160/4.5 1 PUFF INH IH SCH ×2 (10:31→22:36)
[2021-08-02] MEDS: Tiotropium 10 INH DOSE IH SCH (10:31)
[2021-08-02] MEDS: Doxycycline 100 MG in 0.9 % Sodium Chloride Mini Bag 100 ML IVPB SCH ×2 (14:16→23:26)
[2021-08-02] MEDS: QUEtiapine Fumarate 25 MG TABLET PO SCH (20:26)
[2021-08-03] MEDS: Piperacillin/Tazobactam 3.375 GM in 0.9 % Sodium Chloride Mini Bag 100 ML IVPB SCH ×3 (03:32→19:41)
[2021-08-03 05:14] LABS: Hematocrit 30.8 % (37.5-50.1); Hemoglobin 9.4 g/dL (12.9-16.9); Mean Corpuscular HGB Conc 30.5 g/dL (31.6-35.5); Mean Corpuscular Hemoglobin 27.2 pg (28.0-33.3); Mean Corpuscular Volume 89.3 fL (83.0-100.0); Platelet Count 407 K/mcL (140-400); Red Blood Count 3.45 M/mcL (4.19-5.50); Red Cell Distribution Width 20.7 % (11.5-14.5); White Blood Count 11.3 K/mcL (4.3-11.1)
[2021-08-03 05:27] LABS: BUN/Creatinine Ratio 30 (6-26); Blood Urea Nitrogen 18 mg/dL (6-20); Calcium 8.4 mg/dL (8.6-10.3); Carbon Dioxide 32 mEq/L (23-29); Chloride 99 mEq/L (98-107); Glucose 111 mg/dL (70-105); Osmolality,Calculated 285 (280-300); Potassium 3.8 mEq/L (3.5-5.1); Sodium 136 mEq/L (136-145); eGFR For African Americans > 60 (> 60); eGFR For Non-African Americans > 60 (> 60)
[2021-08-03] MEDS: Nicotine 21 MG PATCH.TD24 TD SCH (08:44)
[2021-08-03] MEDS: Furosemide 20 MG/2 ML VIAL IVP SCH ×2 (08:46→19:42)
[2021-08-03] MEDS: Dexamethasone Sodium Phos/PF 10 MG/ML VIAL IVP SCH (08:46)
[2021-08-03] MEDS: Thiamine (B-1) 100 MG TABLET PO SCH (08:48)
[2021-08-03] MEDS: Gabapentin 300 MG CAPSULE PO SCH ×3 (08:49→19:42)
[2021-08-03] MEDS: Folic Acid 1 MG TABLET PO SCH (08:49)
[2021-08-03] MEDS: Magnesium Oxide 400 MG TABLET PO SCH ×2 (08:49→19:42)
[2021-08-03] MEDS: Budesonide/Formoterol 160/4.5 1 PUFF INH IH SCH ×2 (09:58→21:41)
[2021-08-03 10:44] LABS: ANCA IFA Pattern NONE DETECTED (None Detected); Serine Protease-3 Antibody 1 AU/mL (0-19)
[2021-08-03] MEDS: Doxycycline 100 MG in 0.9 % Sodium Chloride Mini Bag 100 ML IVPB SCH (11:18)
[2021-08-03 12:28] LABS: Magnesium 1.6 mg/dL (1.6-2.6)
[2021-08-03] MEDS: Tiotropium 10 INH DOSE IH SCH (16:06)
[2021-08-03] MEDS: QUEtiapine Fumarate 25 MG TABLET PO SCH (19:42)
[2021-08-04 03:58] LABS: Hematocrit 30.7 % (37.5-50.1); Hemoglobin 9.6 g/dL (12.9-16.9); Mean Corpuscular HGB Conc 31.3 g/dL (31.6-35.5); Mean Corpuscular Hemoglobin 27.6 pg (28.0-33.3); Mean Corpuscular Volume 88.2 fL (83.0-100.0); Platelet Count 416 K/mcL (140-400); Red Blood Count 3.48 M/mcL (4.19-5.50); Red Cell Distribution Width 19.7 % (11.5-14.5); White Blood Count 14.7 K/mcL (4.3-11.1)
[2021-08-04 04:16] LABS: BUN/Creatinine Ratio 34 (6-26); Blood Urea Nitrogen 19 mg/dL (6-20); Calcium 8.7 mg/dL (8.6-10.3); Carbon Dioxide 31 mEq/L (23-29); Chloride 97 mEq/L (98-107); Glucose 199 mg/dL (70-105); Osmolality,Calculated 290 (280-300); Potassium 4.1 mEq/L (3.5-5.1); Sodium 136 mEq/L (136-145); eGFR For African Americans > 60 (> 60); eGFR For Non-African Americans > 60 (> 60)
[2021-08-04] MEDS: Budesonide/Formoterol 160/4.5 1 PUFF INH IH SCH ×2 (07:28→22:50)
[2021-08-04] MEDS: Tiotropium 10 INH DOSE IH SCH (07:30)
[2021-08-04] MEDS: Furosemide 20 MG/2 ML VIAL IVP SCH (07:41)
[2021-08-04] MEDS: Dexamethasone Sodium Phos/PF 10 MG/ML VIAL IVP SCH (07:42)
[2021-08-04] MEDS: Nicotine 21 MG PATCH.TD24 TD SCH (07:43)
[2021-08-04] MEDS: Thiamine (B-1) 100 MG TABLET PO SCH (07:44)
[2021-08-04] MEDS: Gabapentin 300 MG CAPSULE PO SCH ×3 (07:44→20:27)
[2021-08-04] MEDS: Magnesium Oxide 400 MG TABLET PO SCH ×2 (07:51→20:28)
[2021-08-04] MEDS: Folic Acid 1 MG TABLET PO SCH (16:10)
[2021-08-04] MEDS: QUEtiapine Fumarate 25 MG TABLET PO SCH (20:27)
[2021-08-05 00:46] LABS: Hematocrit 33.6 % (37.5-50.1); Hemoglobin 10.4 g/dL (12.9-16.9); Mean Corpuscular Hemoglobin 27.2 pg (28.0-33.3); Mean Platelet Volume 9.8 fL (9.4-12.4); Platelet Count 436 K/mcL (140-400); Red Blood Count 3.82 M/mcL (4.19-5.50); Red Cell Distribution Width 19.7 % (11.5-14.5); White Blood Count 19.3 K/mcL (4.3-11.1)
[2021-08-05 01:04] LABS: BUN/Creatinine Ratio 39 (6-26); Blood Urea Nitrogen 21 mg/dL (6-20); Calcium 8.9 mg/dL (8.6-10.3); Carbon Dioxide 28 mEq/L (23-29); Chloride 98 mEq/L (98-107); Glucose 141 mg/dL (70-105); Osmolality,Calculated 285 (280-300); Potassium 4.2 mEq/L (3.5-5.1); Sodium 135 mEq/L (136-145); eGFR For African Americans > 60 (> 60); eGFR For Non-African Americans > 60 (> 60)
[2021-08-05] MEDS: Dexamethasone Sodium Phos/PF 10 MG/ML VIAL IVP SCH (08:54)
[2021-08-05] MEDS: Nicotine 21 MG PATCH.TD24 TD SCH (08:54)
[2021-08-05] MEDS: Gabapentin 300 MG CAPSULE PO SCH ×3 (08:55→21:02)
[2021-08-05] MEDS: Folic Acid 1 MG TABLET PO SCH (08:55)
[2021-08-05] MEDS: Thiamine (B-1) 100 MG TABLET PO SCH (08:55)
[2021-08-05] MEDS: Magnesium Oxide 400 MG TABLET PO SCH ×2 (08:56→21:02)
[2021-08-05] MEDS: Furosemide Oral Soln 40 MG/4 ML UDC PO SCH (08:56)
[2021-08-05] MEDS: Budesonide/Formoterol 160/4.5 1 PUFF INH IH SCH ×2 (11:15→22:05)
[2021-08-05] MEDS: Tiotropium 10 INH DOSE IH SCH (11:15)
[2021-08-05] MEDS: QUEtiapine Fumarate 25 MG TABLET PO SCH (21:02)
[2021-08-06 06:14] LABS: BUN/Creatinine Ratio 35 (6-26); Blood Urea Nitrogen 19 mg/dL (6-20); Calcium 9.2 mg/dL (8.6-10.3); Carbon Dioxide 28 mEq/L (23-29); Chloride 100 mEq/L (98-107); Glucose 131 mg/dL (70-105); Osmolality,Calculated 284 (280-300); Potassium 4.2 mEq/L (3.5-5.1); Sodium 135 mEq/L (136-145); eGFR For African Americans > 60 (> 60); eGFR For Non-African Americans > 60 (> 60)
[2021-08-06 06:17] LABS: Hematocrit 32.5 % (37.5-50.1); Hemoglobin 9.7 g/dL (12.9-16.9); Mean Corpuscular HGB Conc 29.8 g/dL (31.6-35.5); Mean Corpuscular Hemoglobin 26.4 pg (28.0-33.3); Mean Corpuscular Volume 88.6 fL (83.0-100.0); Mean Platelet Volume 10.2 fL (9.4-12.4); Platelet Count 407 K/mcL (140-400); Red Blood Count 3.67 M/mcL (4.19-5.50); Red Cell Distribution Width 19.1 % (11.5-14.5); White Blood Count 22.1 K/mcL (4.3-11.1)
[2021-08-06] MEDS: Budesonide/Formoterol 160/4.5 1 PUFF INH IH SCH ×2 (07:29→20:10)
[2021-08-06] MEDS: Tiotropium 10 INH DOSE IH SCH (07:30)
[2021-08-06] MEDS ORDERED: dexAMETHasone 4 MG TABLET PO SCH (09:00)
[2021-08-06] MEDS: Magnesium Oxide 400 MG TABLET PO SCH ×2 (09:40→20:24)
[2021-08-06] MEDS: Gabapentin 300 MG CAPSULE PO SCH ×3 (09:40→20:24)
[2021-08-06] MEDS: Thiamine (B-1) 100 MG TABLET PO SCH (09:40)
[2021-08-06] MEDS: Folic Acid 1 MG TABLET PO SCH (09:40)
[2021-08-06] MEDS: Furosemide Oral Soln 40 MG/4 ML UDC PO SCH (09:41)
[2021-08-06] MEDS: Nicotine 21 MG PATCH.TD24 TD SCH (09:41)
[2021-08-06 11:00] VITALS: TEMP 97.6
[2021-08-06 19:15] VITALS: BP 116/76; PULSE 89
[2021-08-06 20:14] VITALS: O2SAT 95
[2021-08-06] MEDS: QUEtiapine Fumarate 25 MG TABLET PO SCH (20:24)
== END 2021-08-06 22:20 | disposition home health service (06) | DRG 253 ==
LOC: 2NENU → SUATTDRO 15:03 → 2NNU 07-31 12:32 → 3NENU 08-02 10:32 → 2NENU 08-03 15:31
PROVIDERS: ADMIT Internal Medicine; ATTEND Family Medicine

== ENCOUNTER 2021-11-03 15:38 | Inpatient (IN) ==
[2021-11-03 16:28] LABS: Basophils # 0.1 K/mcL (0.0-0.2); Basophils % 0.6 %; Eosinophils # 0.4 K/mcL (0.0-0.6); Eosinophils % 2.6 %; Hematocrit 36.5 % (37.5-50.1); Hemoglobin 12.9 g/dL (12.9-16.9); Immature Granulocytes % 1.4 % (0-4); Lymphocytes # 2.7 K/mcL (0.6-4.6); Lymphocytes % 18.5 %; Mean Corpuscular HGB Conc 35.3 g/dL (31.6-35.5); Mean Corpuscular Hemoglobin 28.8 pg (28.0-33.3); Mean Corpuscular Volume 81.5 fL (83.0-100.0); Mean Platelet Volume 11.1 fL (9.4-12.4); Monocytes # 1.2 K/mcL (0.0-1.3); Monocytes % 8.5 %; Neutrophils # 9.9 K/mcL (1.6-8.9); Platelet Count 191 K/mcL (140-400); Red Blood Count 4.48 M/mcL (4.19-5.50); Red Cell Distribution Width 15.7 % (11.5-14.5); Segmented Neutrophils % 68.4 %; White Blood Count 14.6 K/mcL (4.3-11.1)
[2021-11-03 16:47] LABS: Alanine Aminotransferase 54 Units/L (7-52); Albumin 2.9 g/dL (3.5-5.7); Albumin/Globulin Ratio 0.9 (1.1-2.2); Alkaline Phosphatase 352 Units/L (34-104); Aspartate Amino Transferase 96 Units/L (13-39); BUN/Creatinine Ratio 12 (6-26); Bilirubin,Total 21.4 mg/dL (0.3-1.0); Blood Urea Nitrogen 10 mg/dL (6-20); Calcium 8.7 mg/dL (8.6-10.3); Carbon Dioxide 25 mEq/L (23-29); Chloride 89 mEq/L (98-107); Globulin 3.4 g/dL (2.4-3.5); Glucose 123 mg/dL (70-105); Magnesium 1.3 mg/dL (1.6-2.6); Osmolality,Calculated 264 (280-300); Potassium 2.5 mEq/L (3.5-5.1); Sodium 127 mEq/L (136-145); Total Protein 6.3 g/dL (6.4-8.9); eGFR For African Americans > 60 (> 60); eGFR For Non-African Americans > 60 (> 60)
[2021-11-03 17:03] LABS: Ethanol 24 mg/dL (Less than 10)
[2021-11-03] MEDS ORDERED: Isovue-370 500 ML BOTTLE IVP ONE (17:12)
[2021-11-03] MEDS ORDERED: 0.9 % Sodium Chloride 1,000 ML IV ONE (18:44)
[2021-11-03 19:17] LABS: INR 1.4; Prothrombin Time 16.1 Seconds (9.4-12.1)
[2021-11-03] MEDS ORDERED: Melatonin 3 MG TABLET PO PRN (20:12)
[2021-11-03] MEDS ORDERED: Ondansetron 4 MG/2 ML VIAL IVP PRN (20:12)
[2021-11-03] MEDS ORDERED: Naloxone 0.4 MG/ML INJ IVP PRN (20:12)
[2021-11-03] MEDS ORDERED: *HR* OxyCODONE Immed Rel 5 MG TABLET PO PRN (20:12)
[2021-11-03] MEDS ORDERED: *HR* Promethazine 25 MG/ML VIAL IM PRN (20:12)
[2021-11-03] MEDS ORDERED: *HR* LORazepam 2 MG/ML VIAL IVP PRN ×3 (20:38)
[2021-11-03] MEDS: Ringers Solution, Lactated 1,000 ML IVC SCH (21:47)
[2021-11-03] MEDS: *HR* Heparin 5,000 UNIT/ML VIAL SQ SCH (23:11)
[2021-11-04] MEDS: Ringers Solution, Lactated 1,000 ML IVC SCH (02:51)
[2021-11-04 05:49] LABS: Basophils # 0.1 K/mcL (0.0-0.2); Basophils % 0.9 %; Eosinophils # 0.4 K/mcL (0.0-0.6); Eosinophils % 3.7 %; Hematocrit 30.9 % (37.5-50.1); Immature Granulocytes % 1.9 % (0-4); Lymphocytes # 2.5 K/mcL (0.6-4.6); Lymphocytes % 21.2 %; Mean Corpuscular HGB Conc 35.6 g/dL (31.6-35.5); Mean Corpuscular Hemoglobin 29.3 pg (28.0-33.3); Mean Corpuscular Volume 82.2 fL (83.0-100.0); Mean Platelet Volume 11.1 fL (9.4-12.4); Neutrophils # 7.7 K/mcL (1.6-8.9); Platelet Count 167 K/mcL (140-400); Red Blood Count 3.76 M/mcL (4.19-5.50); Red Cell Distribution Width 16.2 % (11.5-14.5); Segmented Neutrophils % 64.3 %
[2021-11-04 05:55] LABS: INR 1.5; Prothrombin Time 16.2 Seconds (9.4-12.1)
[2021-11-04 06:15] LABS: Alanine Aminotransferase 45 Units/L (7-52); Albumin 2.4 g/dL (3.5-5.7); Albumin/Globulin Ratio 0.9 (1.1-2.2); Alkaline Phosphatase 284 Units/L (34-104); Aspartate Amino Transferase 88 Units/L (13-39); BUN/Creatinine Ratio 13 (6-26); Bilirubin,Total 17.7 mg/dL (0.3-1.0); Blood Urea Nitrogen 10 mg/dL (6-20); Calcium 8.1 mg/dL (8.6-10.3); Carbon Dioxide 27 mEq/L (23-29); Chloride 94 mEq/L (98-107); Chol/HDL Ratio 36.1 (0-4.9); Cholesterol 289 mg/dL (< 200); Globulin 2.6 g/dL (2.4-3.5); Glucose 115 mg/dL (70-105); HDL Cholesterol 8 mg/dL (40-59); LDL Cholesterol,Calculated 247 mg/dL (< 100); Magnesium 1.8 mg/dL (1.6-2.6); Osmolality,Calculated 266 (280-300); Potassium 2.8 mEq/L (3.5-5.1); Sodium 128 mEq/L (136-145); Triglycerides 168 mg/dL (< 150); eGFR For African Americans > 60 (> 60); eGFR For Non-African Americans > 60 (> 60)
[2021-11-04] MEDS: *HR* Heparin 5,000 UNIT/ML VIAL SQ SCH ×3 (09:00→16:42)
[2021-11-04] MEDS ORDERED: *HR* Propofol 200 MG/20 ML VIAL IVP ONE (10:14)
[2021-11-04] MEDS ORDERED: Ondansetron 4 MG/2 ML VIAL ONE (10:14)
[2021-11-04] MEDS ORDERED: Lidocaine -MPF 4% 5 ML AMPUL ONE (10:14)
[2021-11-04] MEDS ORDERED: Lidocaine -MPF 2% 5 ML VIAL ONE (10:14)
[2021-11-04] MEDS ORDERED: *HR* Succinylcholine 200 MG/10 ML VIAL IVP ONE (10:14)
[2021-11-04] MEDS ORDERED: *HR* FentaNYL (PF) 100 MCG/2 ML VIAL ONE (10:14)
[2021-11-04] MEDS ORDERED: Lidocaine HCL 4 ML Topical Solution (Laryng-O-Jet Kit Sterile Pak) TP ONE (10:16)
[2021-11-04] MEDS ORDERED: Potassium Chloride Elixir 20 MEQ/15 ML UDC PO ONE (12:40)
[2021-11-04] MEDS ORDERED: Sennosides 8.6 MG TABLET PO PRN (13:05)
[2021-11-04] MEDS: Gabapentin 300 MG CAPSULE PO SCH ×2 (16:06→20:05)
[2021-11-04] MEDS: Thiamine (B-1) 100 MG, Folic Acid 1 MG in 0.9 % Sodium Chloride 100 ML IVPB SCH (17:52)
[2021-11-04] MEDS: Budesonide/Formoterol 160/4.5 1 PUFF INH IH SCH (20:04)
[2021-11-04] MEDS: hydrOXYzine pamoate 25 MG CAPSULE PO SCH (20:05)
[2021-11-04] MEDS: Famotidine 20 MG TABLET PO SCH (20:05)
[2021-11-05] MEDS: *HR* Heparin 5,000 UNIT/ML VIAL SQ SCH ×4 (00:36→23:19)
[2021-11-05] MEDS: Budesonide/Formoterol 160/4.5 1 PUFF INH IH SCH ×2 (08:08→19:54)
[2021-11-05] MEDS: Gabapentin 300 MG CAPSULE PO SCH ×3 (09:51→19:37)
[2021-11-05] MEDS: Magnesium Oxide 400 MG TABLET PO SCH (09:51)
[2021-11-05] MEDS: Venlafaxine XR (24 HR) 75 MG CAP.ER.24H PO SCH (09:51)
[2021-11-05] MEDS: Famotidine 20 MG TABLET PO SCH ×2 (09:51→19:37)
[2021-11-05] MEDS ORDERED: Isovue-370 500 ML BOTTLE IVP ONE (10:48)
[2021-11-05 11:41] LABS: Basophils # 0.1 K/mcL (0.0-0.2); Basophils % 0.4 %; Eosinophils # 0.2 K/mcL (0.0-0.6); Eosinophils % 1.4 %; Hematocrit 31.3 % (37.5-50.1); Hemoglobin 10.4 g/dL (12.9-16.9); Immature Granulocytes % 1.4 % (0-4); Lymphocytes # 3.3 K/mcL (0.6-4.6); Lymphocytes % 28.3 %; Mean Corpuscular HGB Conc 33.2 g/dL (31.6-35.5); Mean Corpuscular Volume 84.1 fL (83.0-100.0); Mean Platelet Volume 11.4 fL (9.4-12.4); Monocytes % 8.4 %; Neutrophils # 6.9 K/mcL (1.6-8.9); Platelet Count 165 K/mcL (140-400); Red Blood Count 3.72 M/mcL (4.19-5.50); Red Cell Distribution Width 16.6 % (11.5-14.5); Segmented Neutrophils % 60.1 %; White Blood Count 11.5 K/mcL (4.3-11.1)
[2021-11-05 11:55] LABS: Alanine Aminotransferase 39 Units/L (7-52); Albumin 2.5 g/dL (3.5-5.7); Albumin/Globulin Ratio 0.8 (1.1-2.2); Alkaline Phosphatase 259 Units/L (34-104); Aspartate Amino Transferase 55 Units/L (13-39); BUN/Creatinine Ratio 15 (6-26); Bilirubin,Total 10.8 mg/dL (0.3-1.0); Blood Urea Nitrogen 11 mg/dL (6-20); Calcium 7.9 mg/dL (8.6-10.3); Carbon Dioxide 26 mEq/L (23-29); Chloride 97 mEq/L (98-107); Glucose 145 mg/dL (70-105); Osmolality,Calculated 272 (280-300); Potassium 3.2 mEq/L (3.5-5.1); Sodium 130 mEq/L (136-145); Total Protein 5.5 g/dL (6.4-8.9); eGFR For African Americans > 60 (> 60); eGFR For Non-African Americans > 60 (> 60)
[2021-11-05] MEDS ORDERED: Potassium Chloride Elixir 20 MEQ/15 ML UDC PO ONE (13:36)
[2021-11-05] MEDS: Thiamine (B-1) 100 MG, Folic Acid 1 MG in 0.9 % Sodium Chloride 100 ML IVPB SCH (17:26)
[2021-11-05] MEDS: hydrOXYzine pamoate 25 MG CAPSULE PO SCH (19:37)
[2021-11-06 05:49] LABS: Alanine Aminotransferase 37 Units/L (7-52); Albumin 2.4 g/dL (3.5-5.7); Albumin/Globulin Ratio 0.9 (1.1-2.2); Alkaline Phosphatase 265 Units/L (34-104); Aspartate Amino Transferase 48 Units/L (13-39); BUN/Creatinine Ratio 16 (6-26); Bilirubin,Total 8.3 mg/dL (0.3-1.0); Blood Urea Nitrogen 10 mg/dL (6-20); Calcium 7.9 mg/dL (8.6-10.3); Carbon Dioxide 25 mEq/L (23-29); Chloride 100 mEq/L (98-107); Globulin 2.8 g/dL (2.4-3.5); Glucose 115 mg/dL (70-105); Osmolality,Calculated 270 (280-300); Potassium 3.3 mEq/L (3.5-5.1); Sodium 130 mEq/L (136-145); Total Protein 5.2 g/dL (6.4-8.9); eGFR For African Americans > 60 (> 60); eGFR For Non-African Americans > 60 (> 60)
[2021-11-06] MEDS ORDERED: Potassium Chloride Elixir 20 MEQ/15 ML UDC PO ONE (07:33)
[2021-11-06] MEDS: Budesonide/Formoterol 160/4.5 1 PUFF INH IH SCH ×2 (08:06→20:53)
[2021-11-06] MEDS: Venlafaxine XR (24 HR) 75 MG CAP.ER.24H PO SCH (10:02)
[2021-11-06] MEDS: Famotidine 20 MG TABLET PO SCH ×2 (10:03→19:30)
[2021-11-06] MEDS: Gabapentin 300 MG CAPSULE PO SCH ×3 (10:03→19:29)
[2021-11-06] MEDS: Magnesium Oxide 400 MG TABLET PO SCH (10:03)
[2021-11-06] MEDS: *HR* Heparin 5,000 UNIT/ML VIAL SQ SCH ×3 (10:06→23:04)
[2021-11-06] MEDS: Folic Acid 1 MG TABLET PO SCH (10:21)
[2021-11-06] MEDS: Cyanocobalamin (B-12) 1,000 MCG TABLET PO SCH (10:21)
[2021-11-06] MEDS: hydrOXYzine pamoate 25 MG CAPSULE PO SCH (19:29)
[2021-11-07] MEDS: Budesonide/Formoterol 160/4.5 1 PUFF INH IH SCH ×2 (07:50→20:49)
[2021-11-07] MEDS: Cyanocobalamin (B-12) 1,000 MCG TABLET PO SCH (08:59)
[2021-11-07] MEDS: Folic Acid 1 MG TABLET PO SCH (08:59)
[2021-11-07] MEDS: Magnesium Oxide 400 MG TABLET PO SCH (08:59)
[2021-11-07] MEDS: Famotidine 20 MG TABLET PO SCH ×2 (08:59→19:53)
[2021-11-07] MEDS: Venlafaxine XR (24 HR) 75 MG CAP.ER.24H PO SCH (08:59)
[2021-11-07] MEDS: *HR* Heparin 5,000 UNIT/ML VIAL SQ SCH ×2 (09:00→17:00)
[2021-11-07] MEDS: Gabapentin 300 MG CAPSULE PO SCH ×3 (09:00→19:53)
[2021-11-07] MEDS: hydrOXYzine pamoate 25 MG CAPSULE PO SCH (19:53)
[2021-11-08] MEDS: *HR* Heparin 5,000 UNIT/ML VIAL SQ SCH ×4 (00:09→23:44)
[2021-11-08] MEDS: Budesonide/Formoterol 160/4.5 1 PUFF INH IH SCH ×2 (07:40→20:14)
[2021-11-08] MEDS: Gabapentin 300 MG CAPSULE PO SCH ×3 (08:34→19:34)
[2021-11-08] MEDS: Venlafaxine XR (24 HR) 75 MG CAP.ER.24H PO SCH (08:35)
[2021-11-08] MEDS: Cyanocobalamin (B-12) 1,000 MCG TABLET PO SCH (08:38)
[2021-11-08] MEDS: Famotidine 20 MG TABLET PO SCH ×2 (08:38→19:34)
[2021-11-08] MEDS: Magnesium Oxide 400 MG TABLET PO SCH (08:38)
[2021-11-08] MEDS: Folic Acid 1 MG TABLET PO SCH (08:39)
[2021-11-08] MEDS ORDERED: Potassium Chloride Elixir 20 MEQ/15 ML UDC PO ONE (10:31)
[2021-11-08] MEDS: hydrOXYzine pamoate 25 MG CAPSULE PO SCH (19:34)
[2021-11-09] MEDS: Budesonide/Formoterol 160/4.5 1 PUFF INH IH SCH ×2 (07:39→20:47)
[2021-11-09] MEDS: Folic Acid 1 MG TABLET PO SCH (08:42)
[2021-11-09] MEDS: Gabapentin 300 MG CAPSULE PO SCH ×3 (08:42→19:49)
[2021-11-09] MEDS: Cyanocobalamin (B-12) 1,000 MCG TABLET PO SCH (08:42)
[2021-11-09] MEDS: Venlafaxine XR (24 HR) 75 MG CAP.ER.24H PO SCH (08:42)
[2021-11-09] MEDS: Magnesium Oxide 400 MG TABLET PO SCH (08:43)
[2021-11-09] MEDS: *HR* Heparin 5,000 UNIT/ML VIAL SQ SCH ×3 (08:43→23:06)
[2021-11-09] MEDS: Famotidine 20 MG TABLET PO SCH ×2 (08:43→19:49)
[2021-11-09] MEDS: hydrOXYzine pamoate 25 MG CAPSULE PO SCH (19:49)
[2021-11-09] MEDS: *HR* OxyCODONE Immed Rel 5 MG TABLET PO PRN (23:11)
[2021-11-10] MEDS: *HR* Heparin 5,000 UNIT/ML VIAL SQ SCH ×2 (06:05→16:44)
[2021-11-10] MEDS: Budesonide/Formoterol 160/4.5 1 PUFF INH IH SCH ×2 (07:35→19:59)
[2021-11-10] MEDS: Venlafaxine XR (24 HR) 75 MG CAP.ER.24H PO SCH (10:04)
[2021-11-10] MEDS: Folic Acid 1 MG TABLET PO SCH (10:04)
[2021-11-10] MEDS: Famotidine 20 MG TABLET PO SCH ×2 (10:05→21:31)
[2021-11-10] MEDS: Gabapentin 300 MG CAPSULE PO SCH ×3 (10:05→21:31)
[2021-11-10] MEDS: Magnesium Oxide 400 MG TABLET PO SCH (10:05)
[2021-11-10] MEDS: Cyanocobalamin (B-12) 1,000 MCG TABLET PO SCH (10:05)
[2021-11-10] MEDS: hydrOXYzine pamoate 25 MG CAPSULE PO SCH (21:31)
[2021-11-11] MEDS: *HR* OxyCODONE Immed Rel 5 MG TABLET PO PRN (00:03)
[2021-11-11] MEDS: *HR* Heparin 5,000 UNIT/ML VIAL SQ SCH ×2 (00:03→08:39)
[2021-11-11 04:35] VITALS: BP 128/74; PULSE 89; TEMP 97.8
[2021-11-11] MEDS: Budesonide/Formoterol 160/4.5 1 PUFF INH IH SCH (08:16)
[2021-11-11 08:17] VITALS: O2SAT 97
[2021-11-11] MEDS: Folic Acid 1 MG TABLET PO SCH (08:37)
[2021-11-11] MEDS: Cyanocobalamin (B-12) 1,000 MCG TABLET PO SCH (08:38)
[2021-11-11] MEDS: Venlafaxine XR (24 HR) 75 MG CAP.ER.24H PO SCH (08:38)
[2021-11-11] MEDS: Magnesium Oxide 400 MG TABLET PO SCH (08:38)
[2021-11-11] MEDS: Gabapentin 300 MG CAPSULE PO SCH (08:39)
[2021-11-11] MEDS: Famotidine 20 MG TABLET PO SCH (08:39)
== END 2021-11-11 11:57 | disposition home or self-care (01) | DRG 438 ==
LOC: EMEROOARM 15:38 → 2NENU 15:38 → SUATTDRO 21:07 → 2NENU 22:35
PROVIDERS: ADMIT Family Medicine; ATTEND Family Medicine
PROC: ENDOEUS (2021-11-04 10:30)